=== PATIENT | female | born 1990 | race Caucasian/White ===

== ENCOUNTER → 2019-11-10 08:02 | Outpatient (BNVA) | payer BC, SELFPAY | PROVIDERS: Family Provider Family Medicine; PCP Family Medicine; Referring Provider Obstetrics & Gynecology; Visit Provider Obstetrics & Gynecology | DX: Z04.89 Encounter for examination and observation for other specified reasons (principal) | CPT/HCPCS: 84315 ==

== ENCOUNTER → 2019-11-22 08:20 | Outpatient (BNVA) | payer BC, SELFPAY | PROVIDERS: Family Provider Family Medicine; PCP Family Medicine; Visit Provider Nurse Practitioner Women's Health | DX: Z34.90 Encounter for supervision of normal pregnancy, unspecified, unspecified trimester (principal) | CPT/HCPCS: 84315 ==

== ENCOUNTER 2019-11-23 11:30 | Outpatient (CLI) | payer BC, SELFPAY ==
[2019-11-23] VITALS (14 sets, daily range): BP systolic 0–113; BP diastolic 0–62; PULSE 75–98; RESP 16; TEMP 36.8; BMI 26.4
[2019-11-23] MEDS: sodium chloride 0.9% 1,000 ML 999 ML IV (12:37)
[2019-11-23 13:15] LABS: Basophils % 0.2 %; Eosinophils # 0.1 10^3/uL (0.0-0.8); Eosinophils % 0.7 %; Hematocrit 33.2 % (37.0-47.0); Hemoglobin 10.7 g/dL (11.5-15.3); Lymphocytes # 2.7 10^3/uL (0.8-4.8); Lymphocytes % 25.9 %; Mean Corpuscular HGB Conc 32.2 g/dL (30.0-36.0); Mean Platelet Volume 12.4 fL (7.4-10.4); Monocytes # 0.7 10^3/uL (0.2-0.9); Monocytes % 6.7 %; Neutrophils # 6.8 10^3/uL (1.8-7.7); Neutrophils % 65.6 %; Nucleated Red Blood Cells % 0 %; Platelet Count 241 10^3/cmm (130-400); Red Blood Count 3.57 10^6/uL (4.1-5.3); Red Cell Distribution Width 12.8 % (12.1-15.1); White Blood Count 10.3 10^3/uL (4.0-10.0)
[2019-11-23 13:36] LABS: Alanine Aminotransferase 8 U/L (0-33); Albumin Level 3.3 g/dL (3.5-5.2); Alkaline Phosphatase 103 IU/L (35-105); Anion Gap 16.5 (5-19); Aspartate Amino Transferase 15 U/L (0-32); Blood Urea Nitrogen 4 mg/dL (6-20); Carbon Dioxide 21 mmol/L (22-29); Chloride 101 mmol/L (98-107); Globulin 2.9 g/dL (1.3-4.6); Glomerular Filtration Rate 186.2 mL/min (90-130); Glucose 73 mg/dL (74-109); Potassium 3.5 mmol/L (3.5-5.1); Sodium 135 mmol/L (136-145); Total Bilirubin 0.5 mg/dL (0.15-1.2); Total Protein 6.2 g/dL (6.6-8.7)
[2019-11-23] MEDS: terbutaline 1 mg/mL INJ 0.25 MG SUBCUT ×2 (14:41→15:18)
[2019-11-23] MEDS: sodium chloride 0.9% 1,000 ML 125 ML IV (14:55)
== END 2019-11-23 17:05 | disposition home or self-care (01) ==
LOC: OPOB 11:55 → OBGYN 16:58 → OPOB 17:25
PROVIDERS: Family Provider Family Medicine; PCP Family Medicine; Visit Provider Obstetrics & Gynecology
DX: O26.899 Other specified pregnancy related conditions, unspecified trimester (principal); Z3A.00 Weeks of gestation of pregnancy not specified; R52 Pain, unspecified
CPT/HCPCS: 36415; 80053; 81003; 84315; 85025; 87086; 96360; 96361; 96372; 99211; J3105; J7030

== ENCOUNTER → 2019-12-08 07:57 | Outpatient (BNVA) | payer BC, SELFPAY | PROVIDERS: Family Provider Family Medicine; PCP Family Medicine; Visit Provider Obstetrics & Gynecology | DX: Z01.89 Encounter for other specified special examinations (principal) | CPT/HCPCS: 84315 ==

== ENCOUNTER → 2019-12-19 08:01 | Outpatient (BNVA) | payer BC, SELFPAY | PROVIDERS: Family Provider Family Medicine; PCP Family Medicine; Visit Provider Obstetrics & Gynecology | DX: O09.93 Supervision of high risk pregnancy, unspecified, third trimester (principal); Z3A.00 Weeks of gestation of pregnancy not specified | CPT/HCPCS: 84315; 85025; 87081 ==

== ENCOUNTER → 2019-12-27 07:47 | Outpatient (BNVA) | payer BC, SELFPAY | PROVIDERS: Family Provider Family Medicine; PCP Family Medicine; Visit Provider Obstetrics & Gynecology | DX: Z01.89 Encounter for other specified special examinations (principal) | CPT/HCPCS: 84315 ==

== ENCOUNTER → 2020-01-02 14:56 | Outpatient (BNVA) | payer BC, SELFPAY | PROVIDERS: Family Provider Family Medicine; PCP Family Medicine; Visit Provider Obstetrics & Gynecology | DX: Z01.89 Encounter for other specified special examinations (principal) | CPT/HCPCS: 84315 ==

== ENCOUNTER → 2020-01-09 08:13 | Outpatient (BNVA) | payer BC, SELFPAY | PROVIDERS: Family Provider Family Medicine; PCP Family Medicine; Visit Provider Obstetrics & Gynecology | DX: Z01.89 Encounter for other specified special examinations (principal) | CPT/HCPCS: 84315 ==

== ENCOUNTER 2020-01-10 06:55 | Inpatient (IN) | payer BC, SELFPAY ==
[2020-01-10] VITALS (33 sets, daily range): BP systolic 0–138; BP diastolic 0–77; PULSE 63–94; RESP 16–18; TEMP 36.7–36.9; O2SAT 98–99; BMI 27.4
[2020-01-10] MEDS: dextrose 5%-lactated ringers 1,000 ML 125 ML IV ×2 (08:09→15:32)
[2020-01-10] MEDS: ampicillin 2,000 MG in sodium chloride 0.9% (plus) 50 ML 100 MG IV (08:10)
[2020-01-10] MEDS: hyDROXYzine 25 mg Capsule 50 MG PO (08:15)
[2020-01-10] MEDS: oxytocin 30 UNIT/500 ML BAG IV (08:17)
[2020-01-10 08:31] LABS: Basophils % 0.2 %; Eosinophils # 0.1 10^3/uL (0.0-0.8); Eosinophils % 0.8 %; Hematocrit 33.4 % (37.0-47.0); Hemoglobin 10.6 g/dL (11.5-15.3); Lymphocytes % 31.2 %; Mean Corpuscular HGB Conc 31.7 g/dL (30.0-36.0); Mean Corpuscular Hemoglobin 28.8 pg (28.0-34.0); Mean Corpuscular Volume 90.8 fL (81-99); Mean Platelet Volume 12.8 fL (7.4-10.4); Monocytes # 0.9 10^3/uL (0.2-0.9); Monocytes % 9.3 %; Neutrophils # 5.4 10^3/uL (1.8-7.7); Neutrophils % 57.4 %; Nucleated Red Blood Cells % 0 %; Platelet Count 275 10^3/cmm (130-400); Red Blood Count 3.68 10^6/uL (4.1-5.3); Red Cell Distribution Width 13.7 % (12.1-15.1); White Blood Count 9.5 10^3/uL (4.0-10.0)
[2020-01-10] MEDS: ampicillin 1,000 MG in sodium chloride 0.9% (plus) 50 ML 100 MG IV (12:12)
[2020-01-10] MEDS: fentaNYL 50 mcg/mL INJ 2mL 25 MCG IVP (14:30)
[2020-01-10] MEDS: ondansetron 2 mg/ML SDV 2 mL 4 MG IVP (14:47)
[2020-01-10] MEDS: miSOPROStol 200 mcg Tablet 600 MCG PR (15:30)
[2020-01-10] MEDS: lidocaine 2% INJ 20 mL INJECTION (16:14)
--- NOTE | 2020-01-10 16:57 | PM.DELIVERY ---
 Delivery Note: Date of delivery: January 10, 2020 Pre-delivery diagnoses: 29-year-old 7 para 2-0-4-2 at 39 weeks and 2 days GBS positive History of herpes on valacyclovir suppression Depression controlled with medication Acid reflux controlled with medication Elective induction of labor Post-delivery diagnoses: Vaginal delivery on 01/10/2020 Delivering Physician: Jagdish Solomon Pre-Delivery Course: Ms. Olivo is a 29-year-old 7 para 2-0-4-2 who presented to labor and delivery on 01/10/2020 at 39 weeks and 2 days gestation for scheduled induction of labor. She denied any new problems other than having a lot of irregular contractions since having her membranes stripped. She was noted to be 2 cm, 70% and -1 station and had irregular contractions noted on the monitor. tracing was category 1. Induction was started at 8 AM with Pitocin which was titrated to a maximum of 20 mIU. With this she started to have regular contractions every 2 to 3 minutes. tracing remained category 1. Artificial rupture of membranes was performed at 1:20 PM with clear fluid. She was 3 cm 80% and -1 station at this time. After that she grew uncomfortable and received fentanyl for pain and made rapid cervical change and was fully dilated at 2:59 PM. She was set up in lithotomy position and ready to push. Delivery: She was set up in lithotomy position and was pushing effectively. She was noted to be +3 station and continued pushing well. The head delivered in CARLYN position, no nuchal cord was present. The shoulders and rest of the body followed with her next push. The baby's mouth and nose were suctioned and the baby was placed on the mother's belly. Once cord pulsations stopped the cord was clamped and cut. Placenta delivered spontaneously intact with membranes and was discarded. The fundus was noted to be firm and well contracted. The lower segment was boggy and uterine massage and 600 mcg of Cytotec improved the stone and bleeding was controlled. The vagina and cervix were inspected and no cervical or sulcal lacerations were noted. The perineum was intact except for first-degree vaginal lacerations which were repaired with a [id number]-sa-crins suture using 3-0 Vicryl on an SH needle. Baby boyRavi born at 3:15 PM with 8/8, weighing 8 pounds 0 ounces, 20-1/4 inches long. Placenta was delivered 3:19 PM on 01/10/2020. Cotyledons were intact , centrally inserted umbilical cord with 3 vessels noted. Estimated blood loss 300 mL. 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
--- NOTE | 2020-01-10 18:33 | PC.NURSE ---
1805 pt ambulated to pushing crib, pt tolerated ambulation well.
[2020-01-10] MEDS: benzocaine-menthol 78 gm Canister 1 SPRAY TOPICAL (20:21)
[2020-01-10] MEDS: HYDROcodone-acetaminophen 5-325 mg Tablet PO (20:55)
[2020-01-11] MEDS: HYDROcodone-acetaminophen 5-325 mg Tablet PO ×4 (01:03→16:00)
[2020-01-11 01:15] VITALS: BP 99/55; PULSE 89; RESP 16
[2020-01-11 04:25] LABS: Hematocrit 29.4 % (37.0-47.0); Hemoglobin 9.3 g/dL (11.5-15.3); Mean Corpuscular HGB Conc 31.6 g/dL (30.0-36.0); Mean Corpuscular Hemoglobin 28.9 pg (28.0-34.0); Mean Corpuscular Volume 91.3 fL (81-99); Mean Platelet Volume 12.2 fL (7.4-10.4); Platelet Count 266 10^3/cmm (130-400); Red Blood Count 3.22 10^6/uL (4.1-5.3); Red Cell Distribution Width 13.5 % (12.1-15.1); White Blood Count 15.2 10^3/uL (4.0-10.0)
[2020-01-11] MEDS: prenatal vitamin Capsule 1 CAP PO (09:06)
[2020-01-11] MEDS: docusate sodium 100 mg Capsule PO (09:07)
[2020-01-11 09:15] VITALS: BP 113/67; PULSE 80; RESP 17
[2020-01-11 12:21] VITALS: BP 126/76; PULSE 72; RESP 17; TEMP 36.7
--- NOTE | 2020-01-11 12:50 | P.DS_ITS ---
Discharge Providers Date of Admission: 01/10/20 06:55 Date of Discharge: January 11, 2020 Attending Provider at Admission: Jagdish Clay MD Attending Provider at Discharge: Jagdish Clay MD Primary Care Provider: Xiang Lou MD Diagnoses at Discharge Discharge Diagnosis (1) History of LEEP (loop electrosurgical excision procedure) of cervix complicating in third trimester: Status: Acute (2) Palpitations: Status: Acute Problem details: - (3) Vertebral artery dissection: Status: Acute (4) History of herpes genitalis: Status: Acute (5) Anemia complicating , third trimester: Status: Acute (6) Supervision of high risk in third trimester: Status: Acute Reason for Visit Reason for Visit: Reason For Visit: induction Hospital Course Hospital Course: Ms. Olivo is a 29-year-old 7 para 2-0-4-2 who presented to labor and delivery on 01/10/2020 at 39 weeks and 2 days gestation for scheduled induction of labor. She denied any new problems other than having a lot of irregular contractions since having her membranes stripped. She was noted to be 2 cm, 70% and -1 station and had irregular contractions noted on the monitor. tracing was category 1. Induction was started at 8 AM with Pitocin which was titrated to a maximum of 20 mIU. With this she started to have regular contractions every 2 to 3 minutes. tracing remained category 1. Artificial rupture of membranes was performed at 1:20 PM with clear fluid. She was 3 cm 80% and -1 station at this time. After that she grew uncomfortable and received fentanyl for pain and made rapid cervical change and was fully dilated at 2:59 PM. She was set up in lithotomy position and ready to push. She underwent an uncomplicated delivery on 01/10/2020. On day #1 she continued to do well. Vital signs are stable and hemoglobin was stable at 9.3. She tolerated regular diet and was bonding well with her baby and denied any depressive symptoms. She desired to have him circumcised and counseling and review of risks and benefits circumcision was performed on her son on 01/11/2020. Fundus was firm with minimal bleeding and she had no other questions or concerns. She desired early discharge and was discharged home on day 1-01/11/2020 in a stable condition. Emergency room precautions were reviewed in detail with patient and she understands she needs to come in for any questions or concerns. Plan is to follow-up in 6 weeks for visit. Physical Exam Narrative: EXAM NARRATIVE: Gen.: No acute distress Heart: S1-S2 heard, regular rate and rhythm Lungs: Clear to auscultation bilaterally Abdomen: Soft, fundus firm below umbilicus, Legs: No calf tenderness, trace pedal edema. Discharge Data Data Completed and Pending: Labs from last 24 hours 01/11/20 04:20 WBC 15.2 H RBC 3.22 L Hgb 9.3 L Hct 29.4 L MCV 91.3 MCH 28.9 MCHC 31.6 RDW 13.5 Plt Count 266 MPV 12.2 H Vitals: Last Vital Signs Temp 98.0 F 01/11/20 12:21 Pulse 72 01/11/20 12:21 Resp 17 01/11/20 12:21 BP 126/76 01/11/20 12:21 Pulse Ox 99 01/10/20 20:30 Discharge Plan Discharge Patient Disposition: Home, Self-Care Condition: Stable Prescriptions: New ibuprofen 800 mg tablet 800 mg PO Q8H Qty: 30 RF: 0 hydrocodone-acetaminophen 5-325 mg tablet 1 tab PO Q6H Qty: 10 RF: 0 docusate sodium 100 mg Capsule 100 mg PO BID PRN (Reason: constipation) Qty: 30 RF: 0 Continued calcium carbonate 500 mg calcium (1,250 mg) tablet,chewable 500 mg PO BID PRNRF: 0 famotidine [Pepcid] 20 mg tablet 20 mg PO DAILY RF: 0 PNV no.[id number] acid 28 mg iron- 800 mcg tablet PO DAILY RF: 0 aspirin 81 mg tablet,delayed release (DR/EC) 81 mg PO DAILY RF: 0 acetaminophen [Tylenol] 325 mg capsule 325 mg PO QID PRNRF: 0 fluoxetine [Prozac] 10 mg capsule 10 mg PO DAILY Qty: 30 RF: 0 bupropion HCl [Wellbutrin XL] 300 mg tablet extended release 24 hr 300 mg PO DAILY 90 Days Qty: 30 RF: 2 Discontinued ferrous sulfate 325 mg (65 mg iron) tablet 325 mg PO BID RF: 0 valacyclovir [Valtrex] 500 mg tablet 500 mg PO BID Qty: 60 RF: 2 Discharge Orders: Discharge Order (Routine); Ordered 01/11/20 Ordered By: Jagdish Clay Referrals: Jagdish Clay MD [Physician] - (Follow-up in 6 weeks for visit) Activity Restrictions/Additional Instructions: Pelvic rest for 6 weeks No heavy lifting for 6 weeks Follow-up in 6 weeks for visit Discharge Attestations Time Spent in Discharge Care*: less than 30 min Specific Discharge Activities: Specific discharge activities: educating patient, educating and/or supporting family/caregiver, discussing with pcp/other providers, documenting/other paperwork and evaluating patient/reviewing data Status at Discharge: Overall status at discharge: other (Stable) Quality Metrics Clinical Quality Measures During this hospital stay, did patient experience: None 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
[2020-01-11 16:15] VITALS: BP 104/62; PULSE 85; RESP 18; TEMP 36.7; O2SAT 98
[2020-01-11 18:03] VITALS: BP 111/69; PULSE 91; RESP 18; TEMP 36.7
== END 2020-01-11 18:50 | disposition home or self-care (01) | DRG 807 ==
PROVIDERS: Admitting Provider Obstetrics & Gynecology; Family Provider Family Medicine; PCP Family Medicine; Visit Provider Obstetrics & Gynecology
DX: O34.43 Maternal care for other abnormalities of cervix, third trimester (principal); Z37.0 Single live birth; O70.0 First degree perineal laceration during delivery; O99.820 Streptococcus B carrier state complicating pregnancy; O99.013 Anemia complicating pregnancy, third trimester; D64.9 Anemia, unspecified; Z3A.39 39 weeks gestation of pregnancy; Z87.891 Personal history of nicotine dependence
CPT/HCPCS: 12345; 36415; 59409; 85025; 85027; 96374; 96375; J0290; J2001; J2405; J3010

== ENCOUNTER 2020-04-18 22:05 | Emergency (ER) | payer BC, SELFPAY ==
[2020-04-18 22:09] VITALS: BP 116/70; RESP 18; BMI 23.1
--- NOTE | 2020-04-18 22:09 | CTR_ITS ---
PROCEDURE INFORMATION: Exam: CT Head Without Contrast Exam date and time: 04/18/2020 10:57 PM Age: 29 years old Clinical indication: Pain; Headache not specified; Patient HX: HX verterbral artery dissection TECHNIQUE: Imaging protocol: Computed tomography of the head without contrast. Radiation optimization: All CT scans at this facility use at least one of these dose optimization techniques: automated exposure control; mA and/or kV adjustment per patient size (includes targeted exams where dose is matched to clinical indication); or iterative reconstruction. COMPARISON: No relevant prior studies available. RADIATION DOSE METRICS: Total DLP (mGy-cm): 846.53 FINDINGS: Brain: Normal. No hemorrhage. Unremarkable white matter. No mass effect. Ventricles: Normal. No ventriculomegaly. Bones/joints: Unremarkable. No acute fracture. Sinuses: Visualized sinuses are unremarkable. No fluid levels. Mastoid air cells: Visualized mastoid air cells are well aerated. Soft tissues: Several gas bubbles are present within the posterior occipital scalp muscles, most likely air introduced via IV catheter. CT/CT head wo con* [id number] IMPRESSION: 1. No acute intracranial abnormality. Radiation Dose CTDIVOL = (mGy): DLP = 846.53 (mGy-cm)
--- NOTE | 2020-04-18 22:09 | CTR_ITS ---
PROCEDURE INFORMATION: Exam: CT Angiography Head With Contrast Exam date and time: 04/18/2020 10:56 PM Age: 29 years old Clinical indication: Pain; Headache; Patient HX: HX verterbral artery dissection; Additional info: WILLAMS TECHNIQUE: Imaging protocol: Computed tomography angiography of the head with intravenous contrast. 3D rendering: MIP and/or 3D reconstructed images were created by the technologist. Radiation optimization: All CT scans at this facility use at least one of these dose optimization techniques: automated exposure control; mA and/or kV adjustment per patient size (includes targeted exams where dose is matched to clinical indication); or iterative reconstruction. Contrast material: OMNI 350; Contrast volume: 95 ml; Contrast route: INTRAVENOUS (IV); COMPARISON: CT head wo con* [id number] 04/18/2020 10:59 PM RADIATION DOSE METRICS: Total DLP (mGy-cm): 1431.36 FINDINGS: Anterior cerebral arteries: No occlusion or significant stenosis. No aneurysm. Right internal carotid artery: Intracranial segment is patent with no significant stenosis or occlusion. No aneurysm. Right middle cerebral artery: No occlusion or significant stenosis. No aneurysm. Right posterior cerebral artery: No occlusion or significant stenosis. No aneurysm. Right vertebral artery: No occlusion or significant stenosis. No aneurysm. Left internal carotid artery: Intracranial segment is patent with no significant stenosis or occlusion. No aneurysm. Left middle cerebral artery: No occlusion or significant stenosis. No aneurysm. Left posterior cerebral artery: No occlusion or significant stenosis. No aneurysm. Left vertebral artery: No occlusion or significant stenosis. No aneurysm. Basilar artery: No occlusion or significant stenosis. No aneurysm. IMPRESSION: No large vessel stenosis or occlusion. PROCEDURE INFORMATION: Exam: CT Angiography Neck With Contrast Exam date and time: 04/18/2020 10:56 PM Age: 29 years old Clinical indication: Pain; Headache; Patient HX: HX verterbral artery dissection; Additional info: WILLAMS TECHNIQUE: Imaging protocol: Computed tomography angiography of the neck with intravenous contrast. 3D rendering: MIP and/or 3D reconstructed images were created by the technologist. Radiation optimization: All CT scans at this facility use at least one of these dose optimization techniques: automated exposure control; mA and/or kV adjustment per patient size (includes targeted exams where dose is matched to clinical indication); or iterative reconstruction. Contrast material: OMNI 350; Contrast volume: 95 ml; Contrast route: INTRAVENOUS (IV); COMPARISON: CT head wo con* [id number] 04/18/2020 10:59 PM RADIATION DOSE METRICS: Total DLP (mGy-cm): 1431.36 FINDINGS: Right common carotid artery: No stenosis. No dissection or occlusion. Right internal carotid artery: No stenosis of the extracranial segment. No dissection or occlusion. Right external carotid artery: No occlusion or stenosis of the origin. Right vertebral artery: No stenosis. No dissection or occlusion. Left common carotid artery: No stenosis. No dissection or occlusion. Left internal carotid artery: No stenosis of the extracranial segment. No dissection or occlusion. Left external carotid artery: No occlusion or stenosis of the origin. Left vertebral artery: No stenosis. No dissection or occlusion. Bones/joints: No acute fracture. Soft tissues: Normal. No significant soft tissue swelling. CT/CT angio headneck* [id number] IMPRESSION: No stenosis or occlusion. REFERENCES: NASCET CRITERIA. The degree of internal carotid artery stenosis is based on NASCET criteria. Normal is no stenosis. Mild is less than 50% stenosis. Moderate is 50-69% stenosis. Severe is 70% to 99% stenosis. Total occlusion is no detectable patent lumen. Radiation Dose CTDIVOL = (mGy): DLP = 1431.36~1431.36 (mGy-cm)
--- NOTE | 2020-04-18 22:14 | ED_ITS ---
Documented by User: Shae Sun MD 04/18/20 22:48 HPI - Headache General: Chief Complaint: Headache Stated Complaint: HEADACHE / NECKACHE Time Seen by Provider: 04/18/20 22:10 Source: patient Mode of arrival: ambulatory Limitations: no limitations History of Present Illness: HPI Narrative: Medina is a 29-year-old with a history of vertebral artery dissection years ago. Patient had been on Plavix until she recently had a child 3 months ago and it stopped. Patient states she has had headaches starting yesterday and much worse today with some neck pain. States the pain is a 9 out of 10. She denies any fever. She had no vomiting or diarrhea. Associated symptoms: Deny chest pain, fever(s), nausea, rash or vomiting Review of Systems Const: Denies: fever(s), chills, body aches or change in appetite Eyes: Denies: blurry vision or eye discomfort ENMT: Denies: throat pain or dental pain Card: Denies: chest pain Resp: Denies: dyspnea GI: Denies: abdominal pain, nausea, vomiting or diarrhea : Denies: dysuria Musc: Denies: neck pain or back pain Skin/Breast: Denies: rash Neuro: Reports: headache(s) Psych: Denies: depression Ovidio/Lymph: Denies: easy bruising All/Imm: Denies: urticaria PFSH ED PFSH: Medical History Anxiety with depression Has had depression since at least 2016 well-controlled on Wellbutrin and Prozac prior to the . This is managed by her primary care provider Dr. Lou Carcinoma in situ of endocervix -LEEP performed on 07/08/2018 with positive endocervical margin for ERIC-3. 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. Surgical History History of dilation and curettage x 2 for SAB S/P LEEP LEEP procedure done on 07/08/2018 for ERIC-2-ERIC-3. Pathology showed anterior lip with mild okfmkoioi-HOZ-7 with negative margins. 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 -Post-LEEP endocervical curettage shows benign endocervical mucosa without malignancy [place] teeth extracted Family History Family/Other Epilepsy Epilepsy Hypertension Denies family history of Cervical cancer Colon cancer Ovarian cancer Breast cancer Uterine cancer Social History Smoking and tobacco status: never smoked Alcohol intake: former Former alcohol use details: used to drink socially Additional social history: - Tobacco use: Former smoker-used to smoke socially-none since 2016 Alcohol use: Social alcohol use-none since 2016 Drug use: Denies past or current use. 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[place] Physical Exam Const: COMMON NORMALS: no acute distress, patient oriented x3 and healthy appearing HENMT: COMMON NORMALS: normocephalic and atraumatic HEAD & SCALP: normocephalic and atraumatic Eye: COMMON NORMALS: Equal, round and reactive pupils present and EOMs intact bilaterally PUPIL: Yes Equal, round and reactive pupils present Neck/C-Spine: COMMON NORMALS: full ROM and supple Chest: COMMONS NORMALS: normal inspection of the chest and normal palpation of entire chest wall Resp: COMMON NORMALS: normal respiratory effort, No retractions, No use of accessory muscles and clear to auscultation bilaterally AUSCULTATION: clear to auscultation bilaterally Cardio: COMMON NORMALS: regular rate, regular rhythm and No murmurs present (Cardio) RATE: regular rate RHYTHM: regular rhythm GI: COMMON NORMALS: Normal to inspection, nondistended, normoactive bowel sounds present, Soft to palpation, non-tender and no masses PALPATION: Yes Soft to palpation Extremity: COMMON NORMALS: normal to inspection and full ROM Neuro: COMMON NORMALS: patient oriented x3, moves all extremities and no focal motor deficits Psych: COMMON NORMALS: mental status grossly normal, Normal thought process present and cooperative THOUGHT PROCESS: Normal thought process present Skin: COMMON NORMALS: no rashes or lesions noted and no wounds GENERAL SKIN EXAM: no rashes or lesions noted Course Vital Signs: Vital signs: Vital Signs Pulse Rate 65 04/19/20 00:30 Respiratory Rate 18 04/19/20 00:30 Blood Pressure 136/73 04/19/20 00:30 Pulse Oximetry 98 04/19/20 00:30 MDM - Headache MDM Narrative: Medical decision making narrative: Medina presents here with a headache along with some neck pain. She does have a history of vertebral artery dissection and will rule out with a CT along with CT angios of head and neck. Patient's care turned over to Dr. Barry to follow these at this time. Lab Data: Labs: Lab Results 04/18/20 04/18/20 04/18/20 Range/Units 22:25 22:37 22:37 WBC 6.5 (4.0-10.0) 10^3/ uL RBC 4.24 (4.1-5.3) 10^6/u L Hgb 12.6 (11.5-15.3) g/dL Hct 38.6 (37.0-47.0) % MCV 91.0 (81-99) fL MCH 29.7 (28.0-34.0) pg MCHC 32.6 (30.0-36.0) g/dL RDW 13.8 (12.1-15.1) % Plt Count 329 (130-400) 10^3/c mm MPV 11.5 H (7.4-10.4) fL Neut % (Auto) 43.8 % Lymph % (Auto) 43.8 % [place] % (Auto) 8.9 % Eos % (Auto) 2.8 % Baso % (Auto) 0.5 % Neut # (Auto) 2.9 (1.8-7.7) 10^3/u L Lymph # (Auto) 2.8 (0.8-4.8) 10^3/u L [place] # (Auto) 0.6 (0.2-0.9) 10^3/u L Eos # (Auto) 0.2 (0.0-0.8) 10^3/u L Baso # (Auto) 0.0 (0.0-0.1) 10^3/u L Nucleated RBC % (a uto) 0 % Nucleated RBCs # 0.0 /100WBC PT 12.80 (10.5-13.3) SECO NDS INR 0.94 (0.8-1.2) Sodium (136-145) mmol/L Potassium (3.5-5.1) mmol/L Chloride (98-107) mmol/L Carbon Dioxide (22-29) mmol/L Anion Gap (5-19) BUN (6-20) mg/dL Creatinine (0.5-0.9) mg/dL GFR Calculation (90-130) mL/min Glucose (65-115) mg/dL Calculated Osmolal ity (285-295) mOsm/k g Calcium (8.5-10.5) mg/dL Total Bilirubin (0.15-1.2) mg/dL AST (0-32) U/L ALT (0-33) U/L Alkaline Phosphata se (35-105) IU/L Total Protein (6.6-8.7) g/dL Albumin (3.5-5.2) g/dL Globulin (1.3-4.6) g/dL HCG, Qual Negative (Negative) 04/18/20 Range/Units 22:37 WBC (4.0-10.0) 10^3/ uL RBC (4.1-5.3) 10^6/u L Hgb (11.5-15.3) g/dL Hct (37.0-47.0) % MCV (81-99) fL MCH (28.0-34.0) pg MCHC (30.0-36.0) g/dL RDW (12.1-15.1) % Plt Count (130-400) 10^3/c mm MPV (7.4-10.4) fL Neut % (Auto) % Lymph % (Auto) % [place] % (Auto) % Eos % (Auto) % Baso % (Auto) % Neut # (Auto) (1.8-7.7) 10^3/u L Lymph # (Auto) (0.8-4.8) 10^3/u L [place] # (Auto) (0.2-0.9) 10^3/u L Eos # (Auto) (0.0-0.8) 10^3/u L Baso # (Auto) (0.0-0.1) 10^3/u L Nucleated RBC % (a uto) % Nucleated RBCs # /100WBC PT (10.5-13.3) SECO NDS INR (0.8-1.2) Sodium 138 (136-145) mmol/L Potassium 4.2 (3.5-5.1) mmol/L Chloride 102 (98-107) mmol/L Carbon Dioxide 26 (22-29) mmol/L Anion Gap 14.2 (5-19) BUN 19 (6-20) mg/dL Creatinine 0.7 (0.5-0.9) mg/dL GFR Calculation 97.6 (90-130) mL/min Glucose 103 (65-115) mg/dL Calculated Osmolal ity 283 L (285-295) mOsm/k g Calcium 9.5 (8.5-10.5) mg/dL Total Bilirubin 0.3 (0.15-1.2) mg/dL AST 18 (0-32) U/L ALT 18 (0-33) U/L Alkaline Phosphata se 78 (35-105) IU/L Total Protein 6.8 (6.6-8.7) g/dL Albumin 4.4 (3.5-5.2) g/dL Globulin 2.4 (1.3-4.6) g/dL HCG, Qual (Negative) Discharge Plan Discharge Patient Disposition: Home, Self-Care Clinical Impression: Headache Qualifiers: Headache type: unspecified Headache chronicity pattern: acute headache Intractability: not intractable Qualified Code(s): R51 - Headache Condition: Stable Prescriptions: No Action PNV no.[id number] acid 28 mg iron- 800 mcg tablet PO DAILY RF: 0 aspirin 81 mg tablet,delayed release (DR/EC) 81 mg PO DAILY RF: 0 bupropion HCl [Wellbutrin XL] 300 mg tablet extended release 24 hr 300 mg PO DAILY 90 Days Qty: 30 RF: 2 fluoxetine [Prozac] 20 mg capsule 20 mg PO DAILY Qty: 30 RF: 1 Discharge Orders: Discharge Order (Routine); Ordered 04/18/20 Ordered By: Josie Alba Referrals: Xiang Lou MD [Primary Care Provider] - 1-3 days Discharge Diet: Advance as tolerated Discharge Activity: Increase activity as tolerated Patient Instructions: Acute Headache (ED) Activity Restrictions/Additional Instructions: Please return to the ER immediately for any of the signs or symptoms listed on your discharge instruction sheets, worsening/changing of your symptoms, you are not getting better as quickly as expected, or for ANY other cause or concerns. Discharge Date/Time: 04/19/20 00:31 Sign Out Sign Out Data: Patient Sign Out occurred on 04/18/20 at 23:28. Patient's care was discussed, and care was transferred from to Josie Alba. Coding Level of Care Code ED Transmission Operator for Chg Fwd Exam Comprehensive Documented by User: Josie Alba 04/19/20 00:50 HPI - Headache General: Chief Complaint: Headache Stated Complaint: HEADACHE / NECKACHE Time Seen by Provider: 04/18/20 22:10 PFSH ED PFSH: Medical History Anxiety with depression Has had depression since at least 2016 well-controlled on Wellbutrin and Prozac prior to the . This is managed by her primary care provider Dr. Lou Carcinoma in situ of endocervix -LEEP performed on 07/08/2018 with positive endocervical margin for ERIC-3. 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. Surgical History History of dilation and curettage x 2 for SAB S/P LEEP LEEP procedure done on 07/08/2018 for ERIC-2-ERIC-3. Pathology showed anterior lip with mild qwloabtkw-ZQU-7 with negative margins. Posterior cervical lips with severe avwdajzcv-GZM-6 with severe dysplasia at the endocervical margin and mild dysplasia at the exocervical margin. -Post-LEEP endocervical curettage shows benign endocervical mucosa without malignancy [place] teeth extracted Family History Family/Other Epilepsy Epilepsy Hypertension Denies family history of Cervical cancer Colon cancer Ovarian cancer Breast cancer Uterine cancer Social History Smoking and tobacco status: never smoked Alcohol intake: former Former alcohol use details: used to drink socially Additional social history: - Tobacco use: Former smoker-used to smoke socially-none since 2016 Alcohol use: Social alcohol use-none since 2016 Drug use: Denies past or current use. 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 I reviewed with her the findings of her CT head and CT Angio of the head and neck. She declines any further evaluation and care but does agree to the Tylenol and Toradol. She will return if her symptoms change or worsen but at this time she was ready to be discharged. For me the patient demonstrated a normal neurologic exam as well as a normal physical exam. I see no sign of a recurrent vertebral dissection at this time. Lab Data: Attestation: I reviewed the patient's lab results. Labs: Lab Results 04/18/20 04/18/20 04/18/20 Range/Units 22:25 22:37 22:37 WBC 6.5 (4.0-10.0) 10^3/ uL RBC 4.24 (4.1-5.3) 10^6/u L Hgb 12.6 (11.5-15.3) g/dL Hct 38.6 (37.0-47.0) % MCV 91.0 (81-99) fL MCH 29.7 (28.0-34.0) pg MCHC 32.6 (30.0-36.0) g/dL RDW 13.8 (12.1-15.1) % Plt Count 329 (130-400) 10^3/c mm MPV 11.5 H (7.4-10.4) fL Neut % (Auto) 43.8 % Lymph % (Auto) 43.8 % [place] % (Auto) 8.9 % Eos % (Auto) 2.8 % Baso % (Auto) 0.5 % Neut # (Auto) 2.9 (1.8-7.7) 10^3/u L Lymph # (Auto) 2.8 (0.8-4.8) 10^3/u L [place] # (Auto) 0.6 (0.2-0.9) 10^3/u L Eos # (Auto) 0.2 (0.0-0.8) 10^3/u L Baso # (Auto) 0.0 (0.0-0.1) 10^3/u L Nucleated RBC % (a uto) 0 % Nucleated RBCs # 0.0 /100WBC PT 12.80 (10.5-13.3) SECO NDS INR 0.94 (0.8-1.2) Sodium (136-145) mmol/L Potassium (3.5-5.1) mmol/L Chloride (98-107) mmol/L Carbon Dioxide (22-29) mmol/L Anion Gap (5-19) BUN (6-20) mg/dL Creatinine (0.5-0.9) mg/dL GFR Calculation (90-130) mL/min Glucose (65-115) mg/dL Calculated Osmolal ity (285-295) mOsm/k g Calcium (8.5-10.5) mg/dL Total Bilirubin (0.15-1.2) mg/dL AST (0-32) U/L ALT (0-33) U/L Alkaline Phosphata se (35-105) IU/L Total Protein (6.6-8.7) g/dL Albumin (3.5-5.2) g/dL Globulin (1.3-4.6) g/dL HCG, Qual Negative (Negative) 04/18/20 Range/Units 22:37 WBC (4.0-10.0) 10^3/ uL RBC (4.1-5.3) 10^6/u L Hgb (11.5-15.3) g/dL Hct (37.0-47.0) % MCV (81-99) fL MCH (28.0-34.0) pg MCHC (30.0-36.0) g/dL RDW (12.1-15.1) % Plt Count (130-400) 10^3/c mm MPV (7.4-10.4) fL Neut % (Auto) % Lymph % (Auto) % [place] % (Auto) % Eos % (Auto) % Baso % (Auto) % Neut # (Auto) (1.8-7.7) 10^3/u L Lymph # (Auto) (0.8-4.8) 10^3/u L [place] # (Auto) (0.2-0.9) 10^3/u L Eos # (Auto) (0.0-0.8) 10^3/u L Baso # (Auto) (0.0-0.1) 10^3/u L Nucleated RBC % (a uto) % Nucleated RBCs # /100WBC PT (10.5-13.3) SECO NDS INR (0.8-1.2) Sodium 138 (136-145) mmol/L Potassium 4.2 (3.5-5.1) mmol/L Chloride 102 (98-107) mmol/L Carbon Dioxide 26 (22-29) mmol/L Anion Gap 14.2 (5-19) BUN 19 (6-20) mg/dL Creatinine 0.7 (0.5-0.9) mg/dL GFR Calculation 97.6 (90-130) mL/min Glucose 103 (65-115) mg/dL Calculated Osmolal ity 283 L (285-295) mOsm/k g Calcium 9.5 (8.5-10.5) mg/dL Total Bilirubin 0.3 (0.15-1.2) mg/dL AST 18 (0-32) U/L ALT 18 (0-33) U/L Alkaline Phosphata se 78 (35-105) IU/L Total Protein 6.8 (6.6-8.7) g/dL Albumin 4.4 (3.5-5.2) g/dL Globulin 2.4 (1.3-4.6) g/dL HCG, Qual (Negative) Imaging Data^: CT Head: Radiologist's impression: [address] [address] [address] Scan Report Signed Patient: Medina Olivo Unit #: [id number] : 1990 Age/Sex: 29 / F ADM Date: 04/18/20 Loc: ER Room/Bed: Attending Dr: Ordering Provider/Ordering MD: Shae Sun MD Date of Service: 04/18/20 Procedure(s): CT head wo con* [id number] Accession Number(s): [id number] Report Number: [id number] PROCEDURE INFORMATION: Exam: CT Head Without Contrast Exam date and time: 04/18/2020 10:57 PM Age: 29 years old Clinical indication: Pain; Headache not specified; Patient HX: HX verterbral artery dissection TECHNIQUE: Imaging protocol: Computed tomography of the head without contrast. Radiation optimization: All CT scans at this facility use at least one of these dose optimization techniques: automated exposure control; mA and/or kV adjustment per patient size (includes targeted exams where dose is matched to clinical indication); or iterative reconstruction. COMPARISON: No relevant prior studies available. RADIATION DOSE METRICS: Total DLP (mGy-cm): 846.53 FINDINGS: Brain: Normal. No hemorrhage. Unremarkable white matter. No mass effect. Ventricles: Normal. No ventriculomegaly. Bones/joints: Unremarkable. No acute fracture. Sinuses: Visualized sinuses are unremarkable. No fluid levels. Mastoid air cells: Visualized mastoid air cells are well aerated. Soft tissues: Several gas bubbles are present within the posterior occipital scalp muscles, most likely air introduced via IV catheter. CT/CT head wo con* [id number] IMPRESSION: 1. No acute intracranial abnormality. Radiation Dose CTDIVOL = (mGy): DLP = 846.53 (mGy-cm) Dictated By: Tolu Solomon Signed By: Tolu Solomon Signed Date/Time: 04/18/202337 DD/ 36 CTA Head and Neck: Radiologist's impression: [address] [address] [address] Scan Report Signed Patient: Medina Olivo Unit #: [id number] : 1990 Age/Sex: 29 / F ADM Date: 04/18/20 Loc: ER Room/Bed: Attending Dr: Ordering Provider/Ordering MD: Shae Sun MD Date of Service: 04/18/20 Procedure(s): CT angio headneck* [id number] Accession Number(s): [id number] Report Number: [id number] PROCEDURE INFORMATION: Exam: CT Angiography Head With Contrast Exam date and time: 04/18/2020 10:56 PM Age: 29 years old Clinical indication: Pain; Headache; Patient HX: HX verterbral artery dissection; Additional info: WILLAMS TECHNIQUE: Imaging protocol: Computed tomography angiography of the head with intravenous contrast. 3D rendering: MIP and/or 3D reconstructed images were created by the technologist. Radiation optimization: All CT scans at this facility use at least one of these dose optimization techniques: automated exposure control; mA and/or kV adjustment per patient size (includes targeted exams where dose is matched to clinical indication); or iterative reconstruction. Contrast material: OMNI 350; Contrast volume: 95 ml; Contrast route: INTRAVENOUS (IV); COMPARISON: CT head wo jaja* [id number] 04/18/2020 10:59 PM RADIATION DOSE METRICS: Total DLP (mGy-cm): 1431.36 FINDINGS: Anterior cerebral arteries: No occlusion or significant stenosis. No aneurysm. Right internal carotid artery: Intracranial segment is patent with no significant stenosis or occlusion. No aneurysm. Right middle cerebral artery: No occlusion or significant stenosis. No aneurysm. Right posterior cerebral artery: No occlusion or significant stenosis. No aneurysm. Right vertebral artery: No occlusion or significant stenosis. No aneurysm. Left internal carotid artery: Intracranial segment is patent with no significant stenosis or occlusion. No aneurysm. Left middle cerebral artery: No occlusion or significant stenosis. No aneurysm. Left posterior cerebral artery: No occlusion or significant stenosis. No aneurysm. Left vertebral artery: No occlusion or significant stenosis. No aneurysm. Basilar artery: No occlusion or significant stenosis. No aneurysm. IMPRESSION: No large vessel stenosis or occlusion. PROCEDURE INFORMATION: Exam: CT Angiography Neck With Contrast Exam date and time: 04/18/2020 10:56 PM Age: 29 years old Clinical indication: Pain; Headache; Patient HX: HX verterbral artery dissection; Additional info: WILLAMS TECHNIQUE: Imaging protocol: Computed tomography angiography of the neck with intravenous contrast. 3D rendering: MIP and/or 3D reconstructed images were created by the technologist. Radiation optimization: All CT scans at this facility use at least one of these dose optimization techniques: automated exposure control; mA and/or kV adjustment per patient size (includes targeted exams where dose is matched to clinical indication); or iterative reconstruction. Contrast material: OMNI 350; Contrast volume: 95 ml; Contrast route: INTRAVENOUS (IV); COMPARISON: CT head wo con* [id number] 04/18/2020 10:59 PM RADIATION DOSE METRICS: Total DLP (mGy-cm): 1431.36 FINDINGS: Right common carotid artery: No stenosis. No dissection or occlusion. Right internal carotid artery: No stenosis of the extracranial segment. No dissection or occlusion. Right external carotid artery: No occlusion or stenosis of the origin. Right vertebral artery: No stenosis. No dissection or occlusion. Left common carotid artery: No stenosis. No dissection or occlusion. Left internal carotid artery: No stenosis of the extracranial segment. No dissection or occlusion. Left external carotid artery: No occlusion or stenosis of the origin. Left vertebral artery: No stenosis. No dissection or occlusion. Bones/joints: No acute fracture. Soft tissues: Normal. No significant soft tissue swelling. CT/CT angio headneck* [id number] IMPRESSION: No stenosis or occlusion. REFERENCES: NASCET CRITERIA. The degree of internal carotid artery stenosis is based on NASCET criteria. Normal is no stenosis. Mild is less than 50% stenosis. Moderate is 50-69% stenosis. Severe is 70% to 99% stenosis. Total occlusion is no detectable patent lumen. Radiation Dose CTDIVOL = (mGy): DLP = 1431.36 1431.36 (mGy-cm) Dictated By: Tolu Solomon Signed By: Tolu Solomon Signed Date/Time: 04/18/202350 DD/ 49 Discharge Plan Discharge Patient Disposition: Home, Self-Care Clinical Impression: Headache Qualifiers: Headache type: unspecified Headache chronicity pattern: acute headache Intractability: not intractable Qualified Code(s): R51 - Headache Condition: Stable Prescriptions: No Action PNV no.491-vnnp-jxlpb acid 28 mg iron- 800 mcg tablet PO DAILY RF: 0 aspirin 81 mg tablet,delayed release (DR/EC) 81 mg PO DAILY RF: 0 bupropion HCl [Wellbutrin XL] 300 mg tablet extended release 24 hr 300 mg PO DAILY 90 Days Qty: 30 RF: 2 fluoxetine [Prozac] 20 mg capsule 20 mg PO DAILY Qty: 30 RF: 1 Discharge Orders: Discharge Order (Routine); Ordered 04/18/20 Ordered By: Josie Alba Referrals: Xiang Lou MD [Primary Care Provider] - 1-3 days Discharge Diet: Advance as tolerated Discharge Activity: Increase activity as tolerated Patient Instructions: Acute Headache (ED) Activity Restrictions/Additional Instructions: Please return to the ER immediately for any of the signs or symptoms listed on your discharge instruction sheets, worsening/changing of your symptoms, you are not getting better as quickly as expected, or for ANY other cause or concerns. Discharge Date/Time: 04/19/20 00:31 Sign Out Sign Out Data: Patient Sign Out occurred on 04/18/20 at 23:28. Patient's care was discussed, and care was transferred from to Josie Alba. Coding Level of Care Code ED Transmission Operator for Ajg Fwd Exam Comprehensive
[2020-04-18] MEDS: metoclopramide 5 mg/mL SDV 2 mL 10 MG IVP (22:30)
[2020-04-18 22:35] LABS: HCG Qualitative Urine. Negative (Negative)
[2020-04-18] MEDS: diphenhydrAMINE 50 mg/mL SDV 1mL IVP (22:40)
[2020-04-18 22:42] LABS: Basophils % 0.5 %; Eosinophils # 0.2 10^3/uL (0.0-0.8); Eosinophils % 2.8 %; Hematocrit 38.6 % (37.0-47.0); Hemoglobin 12.6 g/dL (11.5-15.3); Lymphocytes # 2.8 10^3/uL (0.8-4.8); Lymphocytes % 43.8 %; Mean Corpuscular HGB Conc 32.6 g/dL (30.0-36.0); Mean Corpuscular Hemoglobin 29.7 pg (28.0-34.0); Mean Platelet Volume 11.5 fL (7.4-10.4); Monocytes # 0.6 10^3/uL (0.2-0.9); Monocytes % 8.9 %; Neutrophils # 2.9 10^3/uL (1.8-7.7); Neutrophils % 43.8 %; Nucleated Red Blood Cells % 0 %; Platelet Count 329 10^3/cmm (130-400); Red Blood Count 4.24 10^6/uL (4.1-5.3); Red Cell Distribution Width 13.8 % (12.1-15.1); White Blood Count 6.5 10^3/uL (4.0-10.0)
[2020-04-18 22:51] LABS: INR 0.94 (0.8-1.2)
[2020-04-18 22:56] LABS: Alanine Aminotransferase 18 U/L (0-33); Albumin Level 4.4 g/dL (3.5-5.2); Alkaline Phosphatase 78 IU/L (35-105); Anion Gap 14.2 (5-19); Aspartate Amino Transferase 18 U/L (0-32); Blood Urea Nitrogen 19 mg/dL (6-20); Calcium 9.5 mg/dL (8.5-10.5); Carbon Dioxide 26 mmol/L (22-29); Chloride 102 mmol/L (98-107); Globulin 2.4 g/dL (1.3-4.6); Glomerular Filtration Rate 97.6 mL/min (90-130); Glucose 103 mg/dL (65-115); Osmolality Calculated 283 mOsm/kg (285-295); Potassium 4.2 mmol/L (3.5-5.1); Sodium 138 mmol/L (136-145); Total Bilirubin 0.3 mg/dL (0.15-1.2); Total Protein 6.8 g/dL (6.6-8.7)
[2020-04-18] MEDS: iohexol 350 mg/mL 100 mL Btl IV (23:19)
[2020-04-18 23:25] VITALS: BP 105/76; PULSE 56; RESP 14; O2SAT 98
[2020-04-19] MEDS: acetaminophen 500 mg Tablet 1000 MG PO (00:12)
[2020-04-19] MEDS: ketorolac 30 mg/mL INJ 10 MG IVP (00:15)
[2020-04-19 00:30] VITALS: BP 136/73; PULSE 65; RESP 18; O2SAT 98
== END 2020-04-19 00:31 | disposition home or self-care (01) ==
PROVIDERS: Emergency Medicine; Emergency Provider Emergency Medicine; PCP Family Medicine
DX: R51 Headache (principal); Z79.82 Long term (current) use of aspirin; Z85.41 Personal history of malignant neoplasm of cervix uteri
CPT/HCPCS: 12345; 36415; 70450; 70496; 70498; 80053; 81025; 85025; 85610; 96374; 96375; 99282; 99283; J1200; J1885; J2765; Q9967

== ENCOUNTER → 2020-06-13 14:58 | Outpatient (BNVA) | payer BC, SELFPAY | PROVIDERS: PCP Family Medicine; Visit Provider Psychiatry & Neurology Psychiatry | DX: F33.2 Major depressive disorder, recurrent severe without psychotic features (principal); F41.1 Generalized anxiety disorder; F60.5 Obsessive-compulsive personality disorder | CPT/HCPCS: 99204 ==

== ENCOUNTER → 2020-07-12 07:53 | Outpatient (BNVA) | payer BC, SELFPAY | PROVIDERS: PCP Family Medicine; Visit Provider Psychiatry & Neurology Psychiatry | DX: F60.5 Obsessive-compulsive personality disorder (principal); F41.1 Generalized anxiety disorder; F33.2 Major depressive disorder, recurrent severe without psychotic features | CPT/HCPCS: 99214 ==

== ENCOUNTER → 2020-07-27 07:35 | Outpatient (BNVA) | payer BC, SELFPAY | PROVIDERS: PCP Family Medicine; Visit Provider Psychiatry & Neurology Psychiatry | DX: F60.5 Obsessive-compulsive personality disorder (principal); F41.1 Generalized anxiety disorder; F33.2 Major depressive disorder, recurrent severe without psychotic features | CPT/HCPCS: 99214 ==

== ENCOUNTER → 2020-07-31 11:01 | Outpatient (BNVA) | payer BC, SELFPAY | PROVIDERS: PCP Family Medicine; Visit Provider Nurse Practitioner Family | DX: Z11.59 Encounter for screening for other viral diseases (principal); Z20.828 Contact with and (suspected) exposure to other viral communicable diseases | CPT/HCPCS: 87635 ==

== ENCOUNTER → 2020-08-15 08:32 | Outpatient (BNVA) | payer BC, SELFPAY | PROVIDERS: PCP Family Medicine; Visit Provider Obstetrics & Gynecology | DX: D06.9 Carcinoma in situ of cervix, unspecified (principal) | CPT/HCPCS: 88175 ==

== ENCOUNTER → 2020-09-14 09:10 | Outpatient (BNVA) | payer BC, SELFPAY | PROVIDERS: PCP Family Medicine; Visit Provider Psychiatry & Neurology Psychiatry | DX: F60.5 Obsessive-compulsive personality disorder (principal); F41.1 Generalized anxiety disorder; F33.2 Major depressive disorder, recurrent severe without psychotic features | CPT/HCPCS: 99213 ==

== ENCOUNTER 2020-10-15 14:17 | Outpatient (CLI) | payer BC, SELFPAY ==
--- NOTE | 2020-10-15 14:15 | US_ITS ---
WS: [id number] ABDOMINAL ULTRASOUND LIMITED REASON FOR VISIT: R10.11 - Right upper quadrant pain TECHNIQUE: Grayscale and Doppler ultrasound examination of the abdomen. FINDINGS: Pancreas: No mass or ductal dilatation. Abdominal aorta and IVC: Normal Liver: Liver measures 15.3 cm in length. No focal lesion. Normal echogenicity. Gallbladder: Gallbladder wall thickness measures 0.1 mm. Normal common bile duct diameter. Right kidney: Right kidney measures 9.7 cm x 5.1 cm x 4.2 cm. No mass, calculus, or hydronephrosis. No ascites. US/US abdomen limited [id number] IMPRESSION: No significant abnormality.
== END 2020-10-15 14:18 | disposition home or self-care (01) ==
PROVIDERS: PCP Family Medicine; Visit Provider Nurse Practitioner Family
DX: R10.11 Right upper quadrant pain (principal); R11.10 Vomiting, unspecified
CPT/HCPCS: 76705; 80053; 81003; 81025; 83690; 85025; 87077; 87086; 87184

== ENCOUNTER 2020-10-17 20:24 | Outpatient (CLI) | payer BC, SELFPAY ==
--- NOTE | 2020-10-17 20:29 | CTR_ITS ---
PROCEDURE INFORMATION: Exam: CT Abdomen And Pelvis With Contrast Exam date and time: 10/17/2020 8:50 PM Age: 30 years old Clinical indication: Abdominal pain; Generalized; Patient HX: Diffuse abd pain with n/v x 3 days. ; Additional info: Nausea/vomiting/abdominal pain TECHNIQUE: Imaging protocol: Computed tomography of the abdomen and pelvis with intravenous contrast. Radiation optimization: All CT scans at this facility use at least one of these dose optimization techniques: automated exposure control; mA and/or kV adjustment per patient size (includes targeted exams where dose is matched to clinical indication); or iterative reconstruction. Contrast material: OMNI 300; Contrast volume: 75 ml; Contrast route: INTRAVENOUS (IV); COMPARISON: CT abdomen pelvis w con* [id number] 03/06/2019 12:45 PM RADIATION DOSE METRICS: Total DLP (mGy-cm): 300.06 FINDINGS: Liver: Normal. No mass. Gallbladder and bile ducts: Normal. No calcified stones. No ductal dilation. Pancreas: Normal. No ductal dilation. Spleen: Normal. No splenomegaly. Adrenal glands: Normal. No mass. Kidneys and ureters: Normal. No hydronephrosis. Stomach and bowel: Unremarkable. No obstruction. No mucosal thickening. Appendix: The appendix is normal. Intraperitoneal space: Unremarkable. No free air. No significant fluid collection. Vasculature: Unremarkable. No abdominal aortic aneurysm. Lymph nodes: Unremarkable. No enlarged lymph nodes. Urinary bladder: Mild wall thickening of the urinary bladder measuring up to 8 mm. Reproductive: Unremarkable as visualized. Bones/joints: Unremarkable. No acute fracture. Soft tissues: Unremarkable. CT/CT abdomen pelvis w con* [id number] IMPRESSION: 1. Wall thickening of the urinary bladder is suspicious for cystitis. Clinical correlation recommended. 2. No other acute abnormalities identified in the abdomen or pelvis. Radiation Dose CTDIVOL = (mGy): DLP = 300.06 (mGy-cm)
[2020-10-17] MEDS: iohexol 300 mg/mL 100 mL Btl IV (20:51)
[2020-10-17 21:22] LABS: Basophils % 0.4 %; Eosinophils # 0.1 10^3/uL (0.0-0.8); Eosinophils % 2.4 %; Hematocrit 37.7 % (37.0-47.0); Hemoglobin 12.5 g/dL (11.5-15.3); Lymphocytes # 2.1 10^3/uL (0.8-4.8); Lymphocytes % 38.7 %; Mean Corpuscular HGB Conc 33.2 g/dL (30.0-36.0); Mean Corpuscular Hemoglobin 30.7 pg (28.0-34.0); Mean Corpuscular Volume 92.6 fL (81-99); Mean Platelet Volume 11.3 fL (7.4-10.4); Monocytes # 0.5 10^3/uL (0.2-0.9); Monocytes % 8.3 %; Neutrophils # 2.73 10^3/uL (1.8-7.7); Nucleated Red Blood Cells % 0 %; Platelet Count 310 10^3/cmm (130-400); Red Blood Count 4.07 10^6/uL (4.1-5.3); Red Cell Distribution Width 11.9 % (12.1-15.1); White Blood Count 5.5 10^3/uL (4.0-10.0)
[2020-10-17] MEDS: promethazine 25 mg/mL SDV 1 mL IM (21:24)
[2020-10-17] MEDS: cefTRIAXone 1,000 MG in sodium chloride 0.9% (plus) 50 ML 100 MG IV (21:24)
[2020-10-17 21:37] LABS: Alanine Aminotransferase 10 U/L (0-33); Albumin Level 3.9 g/dL (3.5-5.2); Alkaline Phosphatase 79 IU/L (35-105); Anion Gap 12.7 (5-19); Aspartate Amino Transferase 12 U/L (0-32); Blood Urea Nitrogen 12 mg/dL (6-20); Calcium 8.5 mg/dL (8.5-10.5); Carbon Dioxide 26 mmol/L (22-29); Chloride 106 mmol/L (98-107); Globulin 2.4 g/dL (1.3-4.6); Glomerular Filtration Rate 72.6 mL/min (90-130); Glucose 75 mg/dL (65-115); Lipase 16 U/L (13-60); Osmolality Calculated 290 mOsm/kg (285-295); Potassium 3.7 mmol/L (3.5-5.1); Sodium 141 mmol/L (136-145); Total Bilirubin 0.5 mg/dL (0.15-1.2); Total Protein 6.3 g/dL (6.6-8.7)
[2020-10-17 22:02] VITALS: BMI 19.7
--- NOTE | 2020-10-18 05:42 | P.SS_ITS ---
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 She was moved to a bed on the OB floor. After talking with her more it turns out that she been having abdominal pain and had been treated for cystitis over the last several days. She has been able to eat very little last week. She has been taking in liquids but at times has had a hard time with p.o. intake. She has had multiple episodes of vomiting in the past week. She is seen Sandra Peñaloza has been treated for cystitis. She had had lab work done, and a urinalysis and culture. Her culture grew out Staphylococcus lugdunensis with 100,000 cultures. She has also has epigastric pain and has been treated for that as well.. At the time I evaluated her physically, she had had a liter of LR. Review of Systems General: Reports: 10 or more systems reviewed and unremarkable except in HPI and below Const: Reports: fever(s) Card: Denies: chest pain or irregular heart rhythm Resp: Denies: dyspnea GI: Reports: abdominal pain (The patient has had epigastric pain.), nausea, vomiting and diarrhea (A single episode 3 days ago); Denies: hematemesis, coffee ground emesis, constipation or hematochezia : Reports: flank pain; Denies: difficulty voiding, dysuria, urinary frequency, urinary urgency or urinary hesitancy Skin/Breast: Denies: rash Neuro: Reports: weakness in extremities Home Meds/Allergies Home Medications and Allergies Allergies Allergy/AdvReac Type Severity Reaction Status Date / Time chlorpromazine Allergy Severe Itching, Verified 10/15/20 10:28 [From Thorazine] and throat swelling vancomycin Allergy Severe Red Man Verified 10/15/20 10:28 Syndrome PFSH Acute PFSH: Medical History (Updated 10/18/20 @ 05:57 by Fredrick Ramirez MD) Anxiety with depression Has had depression since at least 2016 well-controlled on Wellbutrin and Prozac prior to the . This is managed by her primary care provider Dr. Lou Carcinoma in situ of endocervix -LEEP performed on 07/08/2018 with positive endocervical margin for ERIC-3. 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 Surgical History History of dilation and curettage x 2 for SAB S/P LEEP LEEP procedure done on 07/08/2018 for ERIC-2-ERIC-3. Pathology showed anterior lip with mild [id number] with negative margins. 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 -Post-LEEP endocervical curettage shows benign endocervical mucosa without malignancy [place] teeth extracted Family History Family/Other Epilepsy Hypertension Denies family history of Cervical cancer Colon cancer Ovarian cancer Breast cancer Uterine cancer Social History Smoking and tobacco status: former smoker Quit status (tobacco): has quit using tobacco Year quit tobacco: 2018 Second hand smoke exposure: No Smoking risk assessment/counseling performed?: No Alcohol intake: former Former alcohol use details: used to drink socially Current gender identity: Female Female Reproductive History: Date of last menstrual period: 04/18/19 Vitals/I&O/Wt Weight last 48 hrs Weight 115 lb Physical Exam Const: COMMON NORMALS: no acute distress (The patient is lying in bed and appears weak and tired.) and patient oriented x3 GENERAL APPEARANCE: cooperative, comfortable and well developed HENMT: COMMON NORMALS: normocephalic and moist oral mucous membranes HEAD & SCALP: normocephalic Chest: COMMONS NORMALS: normal inspection of the chest Resp: COMMON NORMALS: normal respiratory effort and clear to auscultation bilaterally AUSCULTATION: clear to auscultation bilaterally Cardio: COMMON NORMALS: regular rate, regular rhythm, No gallops present (Cardio), No murmurs present (Cardio) and No rub (Cardio) RATE: regular rate RHYTHM: regular rhythm Extremity: COMMON NORMALS: normal to inspection Neuro: COMMON NORMALS: patient oriented x3 and no focal motor deficits Skin: COMMON NORMALS: no rashes or lesions noted GENERAL SKIN EXAM: no rashes or lesions noted Hospital Course Hospital Course The patient was given to liters of LR. She was also given promethazine IM. She was also given a gram of Rocephin. She still have abdominal pain but was feeling better overall. Her vitals were stable. SSS Data Data Completed and Pending: Completed Studies During Hospitalization Category Date Time Status CT abdomen pelvis w con* [id number] Stat Cat Scan 10/17/20 20:29 Completed Addt'l Data from Hospital Stay: The CT scan of the abdomen demonstrated thickened bladder consistent with cystitis but otherwise was unremarkable. Her CBC demonstrated a white blood count of 5.5 with a hemoglobin of 12.5 and a platelet count of 310. Her metabolic panel was remarkable for a total protein of 6.3. Diagnoses at Discharge Discharge Diagnosis (1) Epigastric pain: Status: Acute Permanent problem details: At this point it is not clear if the patient just has a resistant cystitis more time or there is another factor going on. We will be in touch tomorrow and decide whether or not she needs further diagnostics or therapeutics. (2) Nausea & vomiting: Status: Acute (3) Syncope and collapse: Status: Acute (4) Flank pain: Status: Acute (5) Cystitis: Status: Acute Discharge Plan Discharge Patient Disposition: Home Prescriptions: No Action sertraline [Zoloft] 100 mg tablet 100 mg PO DAILY Qty: 30 RF: 2 promethazine 25 mg tablet 25 mg PO TID PRN (Reason: nausea and vomiting) Qty: 30 RF: 0 Discharge Orders: Discharge Order (Routine); Ordered 10/17/20 Ordered By: Fredrick Ramirez Patient Instructions: Abdominal Pain - Adult Discharge Date/Time: 10/17/20 22:30 Attestations Medical Necessity Statement*: The patient was discharged home on the same day. Time Spent in Patient Care*: greater than 30 min Quality Metrics Clinical Quality Measures: During this hospital stay, did patient experience: None Coding Level of Care Code Acute Therapy Administrative Assistant for g Fwd Diagnoses Epigastric pain R10.13 Nausea & vomiting R11.2 Syncope and collapse R55 Flank pain R10.9 Cystitis N30.90
== END 2020-10-17 22:30 | disposition home or self-care (01) ==
LOC: OPOB 20:26 → OBGYN 22:20
PROVIDERS: PCP Family Medicine; Visit Provider Family Medicine
DX: R55 Syncope and collapse (principal); R10.13 Epigastric pain; R11.2 Nausea with vomiting, unspecified; N30.90 Cystitis, unspecified without hematuria; Z87.891 Personal history of nicotine dependence
CPT/HCPCS: 12345; 36415; 74177; 80053; 83690; 85025; 96372; J0696; J2550; Q9967

== ENCOUNTER → 2020-10-31 08:04 | Outpatient (BNVA) | payer BC, SELFPAY | PROVIDERS: PCP Family Medicine; Visit Provider Counselor Professional | DX: F60.5 Obsessive-compulsive personality disorder (principal); F41.1 Generalized anxiety disorder; F33.2 Major depressive disorder, recurrent severe without psychotic features | CPT/HCPCS: 90834 ==

== ENCOUNTER → 2020-11-12 08:35 | Outpatient (BNVA) | payer OTHER, SELFPAY | PROVIDERS: PCP Family Medicine; Visit Provider Counselor Professional | DX: F60.5 Obsessive-compulsive personality disorder (principal); F33.2 Major depressive disorder, recurrent severe without psychotic features; F41.1 Generalized anxiety disorder | CPT/HCPCS: 90834 ==

== ENCOUNTER → 2020-11-23 08:50 | Outpatient (BNVA) | payer SELFPAY | PROVIDERS: PCP Family Medicine; Visit Provider Counselor Professional | DX: F33.2 Major depressive disorder, recurrent severe without psychotic features (principal); F60.5 Obsessive-compulsive personality disorder; F41.1 Generalized anxiety disorder | CPT/HCPCS: 90834 ==

== ENCOUNTER → 2020-12-04 08:25 | Outpatient (BNVA) | payer SELFPAY | PROVIDERS: PCP Family Medicine; Visit Provider Counselor Professional | DX: F33.2 Major depressive disorder, recurrent severe without psychotic features (principal); F60.5 Obsessive-compulsive personality disorder; F41.1 Generalized anxiety disorder | CPT/HCPCS: 90834 ==

== ENCOUNTER → 2020-12-26 08:01 | Outpatient (BNVA) | payer OTHER, SELFPAY | PROVIDERS: PCP Family Medicine; Visit Provider Obstetrics & Gynecology | DX: Z30.9 Encounter for contraceptive management, unspecified (principal); Z30.09 Encounter for other general counseling and advice on contraception; Z30.430 Encounter for insertion of intrauterine contraceptive device | CPT/HCPCS: 81025 ==

== ENCOUNTER → 2021-01-02 08:11 | Outpatient (BNVA) | payer OTHER, SELFPAY | PROVIDERS: PCP Family Medicine; Visit Provider Counselor Professional | DX: F33.2 Major depressive disorder, recurrent severe without psychotic features (principal); F60.5 Obsessive-compulsive personality disorder; F41.1 Generalized anxiety disorder | CPT/HCPCS: 90834 ==

== ENCOUNTER → 2021-01-07 07:57 | Outpatient (BNVA) | payer OTHER, SELFPAY | PROVIDERS: PCP Family Medicine; Visit Provider Psychiatry & Neurology Psychiatry | DX: F60.5 Obsessive-compulsive personality disorder (principal); F41.1 Generalized anxiety disorder; F33.2 Major depressive disorder, recurrent severe without psychotic features | CPT/HCPCS: 99214 ==

== ENCOUNTER → 2021-01-10 07:51 | Outpatient (BNVA) | payer OTHER, SELFPAY | PROVIDERS: PCP Family Medicine; Visit Provider Counselor Professional | DX: F33.2 Major depressive disorder, recurrent severe without psychotic features (principal); F60.5 Obsessive-compulsive personality disorder; F41.1 Generalized anxiety disorder | CPT/HCPCS: 90834 ==

== ENCOUNTER → 2021-03-11 09:13 | Outpatient (BNVA) | payer OTHER, SELFPAY | PROVIDERS: PCP Family Medicine; Visit Provider Counselor Professional | DX: F33.2 Major depressive disorder, recurrent severe without psychotic features (principal); F60.5 Obsessive-compulsive personality disorder; F41.1 Generalized anxiety disorder | CPT/HCPCS: 90834 ==

== ENCOUNTER → 2021-03-29 08:09 | Outpatient (BNVA) | payer OTHER, SELFPAY | PROVIDERS: PCP Family Medicine; Visit Provider Counselor Professional | DX: F33.2 Major depressive disorder, recurrent severe without psychotic features (principal); F60.5 Obsessive-compulsive personality disorder; F41.1 Generalized anxiety disorder | CPT/HCPCS: 90834 ==

== ENCOUNTER 2021-05-15 17:21 | Outpatient (CLI) | payer OTHER, SELFPAY ==
[2021-05-16 14:32] LABS: Coronavirus Test Green County Not Detected
== END 2021-05-15 17:22 | disposition home or self-care (01) ==
LOC: OPOB 17:23
PROVIDERS: PCP Family Medicine; Visit Provider Family Medicine
DX: O26.899 Other specified pregnancy related conditions, unspecified trimester (principal); Z3A.00 Weeks of gestation of pregnancy not specified; Z20.822 Contact with and (suspected) exposure to COVID-19
CPT/HCPCS: 87635

== ENCOUNTER → 2021-05-31 11:02 | Outpatient (BNVA) | payer OTHER, SELFPAY | PROVIDERS: PCP Family Medicine; Visit Provider Nurse Practitioner Family | DX: J06.9 Acute upper respiratory infection, unspecified (principal); R50.9 Fever, unspecified; W57.XXXA Bitten or stung by nonvenomous insect and other nonvenomous arthropods, initial encounter; U07.1 COVID-19; Z20.822 Contact with and (suspected) exposure to COVID-19 | CPT/HCPCS: 80053; 86618; 86666; 86757; 87400; 87426 ==

== ENCOUNTER 2021-06-05 04:30 | Outpatient (CLI) | payer OTHER, SELFPAY ==
[2021-06-05 05:56] VITALS: BP 113/72; PULSE 69; RESP 16; O2SAT 98; BMI 22.8
[2021-06-05 06:39] VITALS: BP 110/73; PULSE 66; RESP 17; O2SAT 97
[2021-06-05 07:48] VITALS: BP 110/72; PULSE 66; RESP 19; O2SAT 99
== END 2021-06-05 04:31 | disposition home or self-care (01) ==
LOC: ER 05:10
PROVIDERS: PCP Family Medicine; Visit Provider Nurse Practitioner Family
DX: U07.1 COVID-19 (principal)
CPT/HCPCS: 96365

== ENCOUNTER 2021-10-28 19:15 | Emergency (ER) | payer OTHER, SELFPAY ==
[2021-10-28 19:20] VITALS: PULSE 78; RESP 8; O2SAT 100; BMI 22.3
--- NOTE | 2021-10-28 19:34 | ECG_ITS ---
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 Measurements Intervals [place] Rate: 84 P: 76 [place]: 149 QRS: 85 QRSD: 102 T: 59 QT: 398 QTc: 473 Interpretive Statements SINUS RHYTHM POSSIBLE LEFT ATRIAL ENLARGEMENT [-0.1mV P-WAVE IN V1/V2] POSSIBLE RIGHT VENTRICULAR CONDUCTION DELAY [RSR (QR) IN V1/V2] No previous ECG available for comparison Electronically Signed On 10-28-2021 22:19:01 BANKING OFFICER by Andra Morales M.D. [id number]
--- NOTE | 2021-10-28 19:34 | CTR_ITS ---
PROCEDURE INFORMATION: Exam: CT Angiography Head With Contrast, Arteriography Exam date and time: 10/28/2021 7:34 PM Age: 31 years old Clinical indication: Headache and numbness and weakness; Patient HX: HX of vertebral dissection; Additional info: Prior vertebral dissection TECHNIQUE: Imaging protocol: Computed tomography angiography of the head with contrast. Exam focused on the arteries. 3D rendering (Not supervised by radiologist): MIP and/or 3D reconstructed images were created by the technologist. Radiation optimization: All CT scans at this facility use at least one of these dose optimization techniques: automated exposure control; mA and/or kV adjustment per patient size (includes targeted exams where dose is matched to clinical indication); or iterative reconstruction. Contrast material: OMNI 350; Contrast volume: 95 ml; Contrast route: INTRAVENOUS (IV); COMPARISON: CT angio headneck* [id number] 04/18/2020 11:03 PM RADIATION DOSE METRICS: Total DLP (mGy-cm): 1392.6 FINDINGS: ANTERIOR CIRCULATION: Right internal carotid artery: Unremarkable. Intracranial segment is patent with no significant stenosis. No aneurysm. Right middle cerebral artery: Unremarkable. No occlusion or significant stenosis. No aneurysm. Right anterior cerebral artery: Unremarkable. No occlusion or significant stenosis. No aneurysm. Left internal carotid artery: Unremarkable. Intracranial segment is patent with no significant stenosis. No aneurysm. Left middle cerebral artery: Unremarkable. No occlusion or significant stenosis. No aneurysm. Left anterior cerebral artery: Unremarkable. No occlusion or significant stenosis. No aneurysm. POSTERIOR CIRCULATION: Right vertebral artery: Unremarkable. No occlusion or significant stenosis. No aneurysm. Left vertebral artery: Unremarkable. No occlusion or significant stenosis. No aneurysm. Basilar artery: Unremarkable. No occlusion or significant stenosis. No aneurysm. Right posterior cerebral artery: Unremarkable. No occlusion or significant stenosis. No aneurysm. Left posterior cerebral artery: Unremarkable. No occlusion or significant stenosis. No aneurysm. Brain: No definite mass, mass effect, or midline shift. Cerebral ventricles: No ventriculomegaly. Bones/joints: Unremarkable. No acute fracture. Soft tissues: Unremarkable. PROCEDURE INFORMATION: Exam: CT Angiography Neck With Contrast Exam date and time: 10/28/2021 7:34 PM Age: 31 years old Clinical indication: Headache and numbness and weakness; Patient HX: HX of vertebral dissection; Additional info: Prior vertebral dissection TECHNIQUE: Imaging protocol: Computed tomography angiography of the neck with contrast. 3D rendering (Not supervised by radiologist): MIP and/or 3D reconstructed images were created by the technologist. Radiation optimization: All CT scans at this facility use at least one of these dose optimization techniques: automated exposure control; mA and/or kV adjustment per patient size (includes targeted exams where dose is matched to clinical indication); or iterative reconstruction. Contrast material: OMNI 350; Contrast volume: 95 ml; Contrast route: INTRAVENOUS (IV); COMPARISON: CT angio headneck* [id number] 04/18/2020 11:03 PM RADIATION DOSE METRICS: Total DLP (mGy-cm): 1392.6 FINDINGS: Right common carotid artery: No stenosis. No dissection or occlusion. Right internal carotid artery: No stenosis of the extracranial segment. No dissection or occlusion. Right external carotid artery: No occlusion or stenosis of the origin. Left common carotid artery: No stenosis. No dissection or occlusion. Left internal carotid artery: No stenosis of the extracranial segment. No dissection or occlusion. Left external carotid artery: No occlusion or stenosis of the origin. Right vertebral artery: No stenosis. No dissection or occlusion. Left vertebral artery: No stenosis. No dissection or occlusion. Soft tissues: Normal. No significant soft tissue swelling. Bones/joints: No acute fracture. CT/CT angio [facility]* [id number] IMPRESSION: Negative CT angiogram of the head. Unremarkable exam. IMPRESSION: 1. Negative CT angiogram of the neck. 2. No carotid artery stenosis. 3. No vascular occlusion. 4. Negative for vertebral artery dissection. REFERENCES: NASCET CRITERIA. The degree of internal carotid artery stenosis is based on NASCET criteria. Normal is no stenosis. Mild is less than 50% stenosis. Moderate is 50-69% stenosis. Severe is 70% to 99% stenosis. Total occlusion is no detectable patent lumen.
--- NOTE | 2021-10-28 19:34 | ECG_ITS ---
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 Measurements Intervals [place] Rate: 80 P: 69 [place]: 154 QRS: 75 QRSD: 104 T: 45 QT: 397 QTc: 460 Interpretive Statements SINUS RHYTHM POSSIBLE LEFT ATRIAL ENLARGEMENT [-0.1mV P-WAVE IN V1/V2] POSSIBLE RIGHT VENTRICULAR CONDUCTION DELAY [RSR (QR) IN V1/V2] Compared to ECG 10/28/2021 19:51:25 No significant changes Electronically Signed On 10-28-2021 22:18:53 FINISHING AREA SUPERVISOR by Andra Morales M.D. [id number]
--- NOTE | 2021-10-28 19:34 | CTR_ITS ---
PROCEDURE INFORMATION: Exam: CT Head Without Contrast Exam date and time: 10/28/2021 7:34 PM Age: 31 years old Clinical indication: Altered mental status/memory loss and weakness, extremity; Right; Patient HX: HX of vertebral dissection; Additional info: Symptoms of acute stroke TECHNIQUE: Imaging protocol: Computed tomography of the head without contrast. Radiation optimization: All CT scans at this facility use at least one of these dose optimization techniques: automated exposure control; mA and/or kV adjustment per patient size (includes targeted exams where dose is matched to clinical indication); or iterative reconstruction. Other technique: STROKE PROTOCOL was implemented. COMPARISON: CT head wo con* [id number] 04/18/2020 10:59 PM RADIATION DOSE METRICS: Total DLP (mGy-cm): 792.86 FINDINGS: Brain: Normal. No hemorrhage. Unremarkable white matter. No mass effect. Cerebral ventricles: No ventriculomegaly. Paranasal sinuses: Visualized sinuses are unremarkable. No fluid levels. Mastoid air cells: Visualized mastoid air cells are well aerated. Bones/joints: Unremarkable. No acute fracture. Soft tissues: Unremarkable. CT/CT head wo con* [id number] IMPRESSION: No acute intracranial abnormality. ASSESSMENT: ASPECTS ([place] Stroke Program Early CT Score) is 10.
[2021-10-28] MEDS: iohexol 350 mg/mL 100 mL Btl IV (19:45)
--- NOTE | 2021-10-28 19:47 | ED_ITS ---
HPI - General Adult General: Chief complaint: Weakness Stated complaint: PT said blood clot Time Seen by Provider: 10/28/21 19:34 History of Present Illness: HPI narrative: CC: R sided weakness, slurring of speech, blurriness of vision, and R facial weakness HPI: [31]yo patient w/ hx of L sided vertebral dissection in 2017 prsenting to the ED for acute R sided facial weakness, and R eye visual blurriness, and slurring of speech x 20 minutes. Reports mild chest pain and palpitations around the same time of onset of symptoms. Since then, symptoms have been persistent and have not improved. Denies any chest pain, SOB, palpitations, /GI complaints. Patient is not on any anticoagulation. 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 Patient taking any anticoagulation or antiplatelets at this time Onset: 20 minutes ago Duration: 20 minutes Location: home Severity: severe Review of Systems Narrative: Constitutional: No fever, no chills. HEENT: No vision changes CV: No chest pain, no palpitations PULM: No cough, no dyspnea. GI: No abdominal pain, no N/V/D. : No dysuria MSKEL: No edema SKIN: No new rashes, no lesions. NEURO: Focal R sided weakness, R facial droop and slurring of speech HEME: No visible bruises PSYCH: Normal mood PFS ED PFSH: Medical History (Updated 10/28/21 @ 20:42 by Arianne Zarate MD) Anxiety with depression Has had depression since at least 2016 well-controlled on Wellbutrin and Prozac prior to the . This is managed by her primary care provider Dr. Lou Carcinoma in situ of endocervix -LEEP performed on 07/08/2018 with positive endocervical margin for ERIC-3. No pertinent past medical history Denies diabetes, asthma, seizures, DVT/PE PMD: Dr. 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 Surgical History History of dilation and curettage x 2 for SAB S/P LEEP LEEP procedure done on 07/08/2018 for ERIC-2-ERIC-3. Pathology showed anterior lip with mild [id number]-HBD-1 with negative margins. 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 -Post-LEEP endocervical curettage shows benign endocervical mucosa without malignancy Midkiff teeth extracted Family History Mother Hypertension Grandmother Hypertension Denies family history of Cervical cancer Colon cancer Ovarian cancer Breast cancer Uterine cancer Social History Smoking and tobacco status: former smoker Quit status (tobacco): has quit using tobacco Year quit tobacco: 2017 Second hand smoke exposure: No Smoking risk assessment/counseling performed?: No Alcohol intake: former Former alcohol use details: used to drink socially Current gender identity: Female Female Reproductive History: Date of last menstrual period: 10/24/21 Physical Exam Narrative: EXAM NARRATIVE: Head: Atraumatic Eyes: PERRL, conjunctiva without injection ENT: Mucous membrane moist NECK: Supple without lymphadenopathy LUNGS: CTA CV: RRR ABDOMEN: Soft, nontender EXTREMITY: Normal ROM SKIN: No rash or erythema NEURO: NIHSS: 2 1. Level of Consciousness A) LOC Responsiveness 0 B) LOC Questions 0 C) LOC Commands 0 2. Horizontal Eye Movement 0 3. Visual field test 1 4. Facial Palsy 1 5. Motor Arm 0 6. Motor Leg 0 7. Limb Ataxia 0 9. Language 0 10. Speech 0 11. Extinction and Inattention 0 PSYCH: Normal mood and affect. Course Vital Signs: Vital signs: Vital Signs Pulse Rate 70 10/28/21 20:02 Respiratory Rate 17 10/28/21 20:02 Blood Pressure 116/67 10/28/21 20:02 Pulse Oximetry 100 10/28/21 20:02 MDM - General Adult MDM Narrative: Medical decision making narrative: [31]yo patient w/ pMH of L sided vertebral dissection BIBA for concerns of focal neurological deficit including R sided visual blurriness and mild R sided facial droop. Presentation concerning for possible ischemic stroke requiring workup. NIHSS of 2 Given History and Exam I have lower suspicion for infectious etiology, neurologic changes secondary to toxicologic ingestion, seizure, complex migraine Workup include: POC glucose, CBC, BMP, Troponin, EKG, CT brain/CTA head/neck EKG without evidence of STEMI or ischemia, fingerstick BS not hypoglycemic, and clinical picture does not suggest other stroke mimic. Plan to workup for TIA Lab Findings and workup [8:37pm] On reassessment, NIH stroke scale of 2. CT head/ CTA neck negative for acute pathologies. Case was discussed immediately with neurologist Kane Lopez from [facility]. Given we do not have any hospital beds, I have discussed this case extensively with provider who recommended MRI evaluation. Per provider, if the MRI is negative, the chances of patient having an immediate stroke is minimal given her age. Will order MR brain today. On reassessment at 10:16pm, MRI is negative for any acute ischemic findings. Have discussed these results with [facility] provider Dr. Lopez who recommends with normal MRI, will patient who has no cardiovascular risk factors, this is unlikely to be a stroke patient can be discharged home with aspirin 325 daily for 30 days with close follow-up with neurology. Repeat neurological evaluation did not show any focal weakness or facial droop. Patient continues to have R sided blurriness and this was discussed extensively Dr. Lopez who recommended close follow given normal imaging studies. Patient is 20/200 in the R eye and 20/20 in the L eye. I have discussed case with Dr. Cordell SALAZAR who recommended close follow-up with ophthalmology. Patient will be scheduled for ophthalmology clinic on 11/04/2020. Patient is given strict return precautions for vision, scotoma, visual blindness, or any visual field deficit. I have given patient follow up with our rn case manager to be seen by Dr. Gregory in the next 2 weeks for evaluation of TIA. Patient aware of a call from our rn case manager to schedule for appointment(s) and verbalizes understanding of the importance of following up. Disposition: Discharge. She is given strict return precaution for any worsening symptoms of focal weakness, vision changes, or any speech, double vision, facial droop, or any new concerning complaints. Lab Data: Labs: Lab Results 10/28/21 10/28/21 10/28/21 19:55 20:00 20:00 WBC 6.9 10^3/uL 10^3/ uL (4.0-10.0) RBC 4.09 10^6/uL L 10 ^6/uL (4.1-5.3) Hgb 12.7 g/dL g/dL (11.5-15.3) Hct 37.5 % % (37.0-47.0) MCV 91.7 fl fl (81-99) MCH 31.1 pg pg (28.0-34.0) MCHC 33.9 g/dL g/dL (30.0-36.0) RDW 12.1 % % (12.1-15.1) Plt Count 297 10^3/cmm 10^3 /cmm (130-400) MPV 11.2 fL H fL (7.4-10.4) Neut % (Auto) 43.0 % % Lymph % (Auto) 45.2 % % Sumner % (Auto) 9.1 % % Eos % (Auto) 2.3 % % Baso % (Auto) 0.3 % % Neut # (Auto) 2.97 10^3/uL 10^3 /uL (1.8-7.7) Lymph # (Auto) 3.1 10^3/uL 10^3/ uL (0.8-4.8) Sumner # (Auto) 0.6 10^3/uL 10^3/ uL (0.2-0.9) Eos # (Auto) 0.2 10^3/uL 10^3/ uL (0.0-0.8) Baso # (Auto) 0.0 10^3/uL 10^3/ uL (0.0-0.1) Nucleated RBC % (a uto) 0 % % Nucleated RBCs # 0.0 /100WBC /100W BC PT 12.80 SECONDS SEC ONDS (12.1-14.9) INR 0.93 (0.8-1.2) APTT 34.1 SECONDS SECO NDS (23.9-36.7) Sodium Potassium Chloride Carbon Dioxide Anion Gap BUN Creatinine GFR Calculation Glucose POC Glucose 85 mg/dL mg/dL (70-110) Calculated Osmolal ity Calcium Total Bilirubin AST ALT Alkaline Phosphata se Troponin T Baselin e Total Protein Albumin Globulin Urine Color Urine Appearance Urine pH Ur Specific Gravit y Urine Protein Urine Glucose (UA) Urine Ketones Urine Blood Urine Nitrate Urine Bilirubin Urine Urobilinogen Ur Leukocyte Marni ase Urine RBC Urine WBC Ur Squamous Epith Cells Amorphous Sediment Urine Bacteria Urine Mucus Urine Opiates Scre en Ur Barbiturates Sc reen Ur Phencyclidine S crn Ur Amphetamines Sc reen U Benzodiazepines Scrn Urine Cocaine Scre en U Marijuana (THC) Screen 10/28/21 10/28/21 10/28/21 20:00 20:00 21:01 WBC RBC Hgb Hct MCV MCH MCHC RDW Plt Count MPV Neut % (Auto) Lymph % (Auto) Sumner % (Auto) Eos % (Auto) Baso % (Auto) Neut # (Auto) Lymph # (Auto) Sumner # (Auto) Eos # (Auto) Baso # (Auto) Nucleated RBC % (a uto) Nucleated RBCs # PT INR APTT Sodium 137 mmol/L mmol/L (136-145) Potassium 3.7 mmol/L mmol/L (3.5-5.1) Chloride 102 mmol/L mmol/L (98-107) Carbon Dioxide 24 mmol/L mmol/L (22-29) Anion Gap 14.7 (5-19) BUN 18 mg/dL mg/dL (6-20) Creatinine 0.6 mg/dL mg/dL (0.5-0.9) GFR Calculation 115.1 mL/min mL/m in (90-130) Glucose 85 mg/dL mg/dL (65-115) POC Glucose Calculated Osmolal ity 285 mOsm/kg mOsm/ kg (285-295) Calcium 8.1 mg/dL L mg/dL (8.5-10.5) Total Bilirubin 0.3 mg/dL mg/dL (0.15-1.2) AST 12 U/L U/L (0-32) ALT 12 U/L U/L (0-33) Alkaline Phosphata se 69 IU/L IU/L (35-105) Troponin T Baselin e 6 ng/L ng/L (0-10) Total Protein 6.1 g/dL L g/dL (6.6-8.7) Albumin 3.9 g/dL g/dL (3.5-5.2) Globulin 2.2 g/dL g/dL (1.3-4.6) Urine Color Yellow (Yellow) Urine Appearance Clear (CLEAR) Urine pH 6.5 (5-7) Ur Specific Gravit y 1.015 (1.005-1.030) Urine Protein Neg (Negative) Urine Glucose (UA) Norm (Normal) Urine Ketones Negative (Negative) Urine Blood Neg (Negative) Urine Nitrate Negative (Negative) Urine Bilirubin Neg (Negative) Urine Urobilinogen Neg mg/dL mg/dL (Negative) Ur Leukocyte Marni ase Trace H (Negative) Urine RBC Rare /hpf /hpf (0-2) Urine WBC 15-25 /hpf H /hpf (0-5) Ur Squamous Epith Cells Rare /hpf /hpf (0-5) Amorphous Sediment Not Reportable Urine Bacteria 3+ /hpf H /hpf (NONE) Urine Mucus 1+ /hpf /hpf Urine Opiates Scre en Ur Barbiturates Sc reen Ur Phencyclidine S crn Ur Amphetamines Sc reen U Benzodiazepines Scrn Urine Cocaine Scre en U Marijuana (THC) Screen 10/28/21 21:01 WBC RBC Hgb Hct MCV MCH MCHC RDW Plt Count MPV Neut % (Auto) Lymph % (Auto) Sumner % (Auto) Eos % (Auto) Baso % (Auto) Neut # (Auto) Lymph # (Auto) Sumner # (Auto) Eos # (Auto) Baso # (Auto) Nucleated RBC % (a uto) Nucleated RBCs # PT INR APTT Sodium Potassium Chloride Carbon Dioxide Anion Gap BUN Creatinine GFR Calculation Glucose POC Glucose Calculated Osmolal ity Calcium Total Bilirubin AST ALT Alkaline Phosphata se Troponin T Baselin e Total Protein Albumin Globulin Urine Color Urine Appearance Urine pH Ur Specific Gravit y Urine Protein Urine Glucose (UA) Urine Ketones Urine Blood Urine Nitrate Urine Bilirubin Urine Urobilinogen Ur Leukocyte Marni ase Urine RBC Urine WBC Ur Squamous Epith Cells Amorphous Sediment Urine Bacteria Urine Mucus Urine Opiates Scre en Negative ng/mL ng /mL (Negative) Ur Barbiturates Sc reen Negative ng/mL ng /mL (Negative) Ur Phencyclidine S crn Negative ng/mL ng /mL (Negative) Ur Amphetamines Sc reen Negative ng/mL ng /mL (Negative) U Benzodiazepines Scrn Negative ng/mL ng /mL (Negative) Urine Cocaine Scre en Negative ng/mL ng /mL (Negative) U Marijuana (THC) Screen Negative ng/mL ng /mL (Negative) Imaging Data^: Other Imaging: Radiologist's impression: [address] [address]YH Scan ReportSigned Patient: Medina Olivo #: [id number]: 1990Acct#:[id number]/Sex: 31 / FADM Date: 10/28/21Loc: ERRoom/Bed:Attending Dr: Ordering Provider/Ordering MD: Arianne Zarate MD Date of Service: 10/28/21 Procedure(s): CT angio headneck* [id number] Accession Number(s): [id number] Report Number: [id number] PROCEDURE INFORMATION: Exam: CT Angiography Head With Contrast, Arteriography Exam date and time: 10/28/2021 7:34 PM Age: 31 years old Clinical indication: Headache and numbness and weakness; Patient HX: HX of vertebral dissection; Additional info: Prior vertebral dissection TECHNIQUE: Imaging protocol: Computed tomography angiography of the head with contrast. Exam focused on the arteries. 3D rendering (Not supervised by radiologist): MIP and/or 3D reconstructed images were created by the technologist. Radiation optimization: All CT scans at this facility use at least one of these dose optimization techniques: automated exposure control; mA and/or kV adjustment per patient size (includes targeted exams where dose is matched to clinical indication); or iterative reconstruction. Contrast material: OMNI 350; Contrast volume: 95 ml; Contrast route: INTRAVENOUS (IV); COMPARISON: CT angio headneck* [id number] 04/18/2020 11:03 PM RADIATION DOSE METRICS: Total DLP (mGy-cm): 1392.6 FINDINGS: ANTERIOR CIRCULATION: Right internal carotid artery: Unremarkable. Intracranial segment is patent with no significant stenosis. No aneurysm. Right middle cerebral artery: Unremarkable. No occlusion or significant stenosis. No aneurysm. Right anterior cerebral artery: Unremarkable. No occlusion or significant stenosis. No aneurysm. Left internal carotid artery: Unremarkable. Intracranial segment is patent with no significant stenosis. No aneurysm. Left middle cerebral artery: Unremarkable. No occlusion or significant stenosis. No aneurysm. Left anterior cerebral artery: Unremarkable. No occlusion or significant stenosis. No aneurysm. POSTERIOR CIRCULATION: Right vertebral artery: Unremarkable. No occlusion or significant stenosis. No aneurysm. Left vertebral artery: Unremarkable. No occlusion or significant stenosis. No aneurysm. Basilar artery: Unremarkable. No occlusion or significant stenosis. No aneurysm. Right posterior cerebral artery: Unremarkable. No occlusion or significant stenosis. No aneurysm. Left posterior cerebral artery: Unremarkable. No occlusion or significant stenosis. No aneurysm. Brain: No definite mass, mass effect, or midline shift. Cerebral ventricles: No ventriculomegaly. Bones/joints: Unremarkable. No acute fracture. Soft tissues: Unremarkable. PROCEDURE INFORMATION: Exam: CT Angiography Neck With Contrast Exam date and time: 10/28/2021 7:34 PM Age: 31 years old Clinical indication: Headache and numbness and weakness; Patient HX: HX of vertebral dissection; Additional info: Prior vertebral dissection TECHNIQUE: Imaging protocol: Computed tomography angiography of the neck with contrast. 3D rendering (Not supervised by radiologist): MIP and/or 3D reconstructed images were created by the technologist. Radiation optimization: All CT scans at this facility use at least one of these dose optimization techniques: automated exposure control; mA and/or kV adjustment per patient size (includes targeted exams where dose is matched to clinical indication); or iterative reconstruction. Contrast material: OMNI 350; Contrast volume: 95 ml; Contrast route: INTRAVENOUS (IV); COMPARISON: CT angio headneck* [id number] 04/18/2020 11:03 PM RADIATION DOSE METRICS: Total DLP (mGy-cm): 1392.6 FINDINGS: Right common carotid artery: No stenosis. No dissection or occlusion. Right internal carotid artery: No stenosis of the extracranial segment. No dissection or occlusion. Right external carotid artery: No occlusion or stenosis of the origin. Left common carotid artery: No stenosis. No dissection or occlusion. Left internal carotid artery: No stenosis of the extracranial segment. No dissection or occlusion. Left external carotid artery: No occlusion or stenosis of the origin. Right vertebral artery: No stenosis. No dissection or occlusion. Left vertebral artery: No stenosis. No dissection or occlusion. Soft tissues: Normal. No significant soft tissue swelling. Bones/joints: No acute fracture. CT/CT angio headneck* [id number] IMPRESSION: Negative CT angiogram of the head. Unremarkable exam. IMPRESSION: 1. Negative CT angiogram of the neck. 2. No carotid artery stenosis. 3. No vascular occlusion. 4. Negative for vertebral artery dissection. REFERENCES: NASCET CRITERIA. The degree of internal carotid artery stenosis is based on NASCET criteria. Normal is no stenosis. Mild is less than 50% stenosis. Moderate is 50-69% stenosis. Severe is 70% to 99% stenosis. Total occlusion is no detectable patent lumen. Dictated By:Mich Rehman By:Mich Rehman Date/Time:10/28/21/ 33 [facility] [place], [place] [address]XI Scan ReportSigned Patient: Medina Olivo #: [id number]: 1990Acct#:[id number]/Sex: 31 / FADM Date: 10/28/21Loc: ERRoom/Bed:Attending Dr: Ordering Provider/Ordering MD: Arianne Zarate MD Date of Service: 10/28/21 Procedure(s): CT head wo con* [id number] Accession Number(s): [id number] Report Number: [id number] PROCEDURE INFORMATION: Exam: CT Head Without Contrast Exam date and time: 10/28/2021 7:34 PM Age: 31 years old Clinical indication: Altered mental status/memory loss and weakness, extremity; Right; Patient HX: HX of vertebral dissection; Additional info: Symptoms of acute stroke TECHNIQUE: Imaging protocol: Computed tomography of the head without contrast. Radiation optimization: All CT scans at this facility use at least one of these dose optimization techniques: automated exposure control; mA and/or kV adjustment per patient size (includes targeted exams where dose is matched to clinical indication); or iterative reconstruction. Other technique: STROKE PROTOCOL was implemented. COMPARISON: CT head wo con* [id number] 04/18/2020 10:59 PM RADIATION DOSE METRICS: Total DLP (mGy-cm): 792.86 FINDINGS: Brain: Normal. No hemorrhage. Unremarkable white matter. No mass effect. Cerebral ventricles: No ventriculomegaly. Paranasal sinuses: Visualized sinuses are unremarkable. No fluid levels. Mastoid air cells: Visualized mastoid air cells are well aerated. Bones/joints: Unremarkable. No acute fracture. Soft tissues: Unremarkable. CT/CT head wo con* [id number] IMPRESSION: No acute intracranial abnormality. ASSESSMENT: ASPECTS ([place] Stroke Program Early CT Score) is 10. Dictated By:Mich Rehman By:Mich Rehman Date/Time:10/28/21/ 33 [facility] [place], [place] [address]Muhyjjrm Resonance ReportSigned Patient: Medina Olivo #: [id number]: 1990Acct#:[id number]/Sex: 31 / FADM Date: 10/28/21Loc: ERRoom/Bed:Attending Dr: Ordering Provider/Ordering MD: Arianne Zarate MD Date of Service: 10/28/21 Procedure(s): MR head wo con* [id number] Accession Number(s): [id number] Report Number: [id number] PROCEDURE INFORMATION: Exam: MR Head Without Contrast Exam date and time: 10/28/2021 8:35 PM Age: 31 years old Clinical indication: Other: Eval stroke, RT side tingling TECHNIQUE: Imaging protocol: MR of the head without contrast. COMPARISON: CT head wo con* [id number] 10/28/2021 7:37 PM FINDINGS: Brain: Small foci of T2 hyperintense signal change in the bilateral frontal lobe subcortical white matter. No intracranial mass. No intracranial hemorrhage. No midline shift of brain. No mass effect on the brain. Faulkner matter and white matter interfaces are preserved. No restricted diffusion in the brain parenchyma. No hemosiderin deposition within brain parenchyma. Cerebral ventricles: Normal. No ventriculomegaly. Bones/joints: Unremarkable. Paranasal sinuses: Normal as visualized. No acute sinusitis. Mastoid air cells: Normal as visualized. No mastoid effusion. Orbital cavity: Unremarkable. Soft tissues: Unremarkable. MR/MR head wo con* [id number] IMPRESSION: 1. No acute brain ischemia. 2. Minimal bilateral frontal lobe subcortical white matter changes which are nonspecific. These could represent sequela of chronic microvascular ischemia, demyelinating disease, vasculitis, migraine headaches, amongst other entities. Dictated By:Mich Rehman By:Mich Rehman Date/Time:10/28/21/ 34 Discharge Plan Discharge Patient Disposition: Home Clinical Impression: Visual blurriness Condition: Stable Prescriptions: New aspirin 325 mg tablet 325 mg PO DAILY 30 Days Qty: 30 RF: 0 No Action Mirena 20 mcg/24 hours (6 yrs) 52 mg intrauterine device 1 device intrauterine .every 5 years Qty: 1 RF: 0 dexamethasone 6 mg tablet 6 mg PO DAILY Qty: 6 RF: 0 azithromycin 250 mg tablet See Rx Instructions PO .COMPLEX Qty: 6 RF: 0 promethazine 25 mg tablet 25 mg PO TID PRN (Reason: nausea and vomiting) Qty: 20 RF: 0 sertraline [Zoloft] 100 mg tablet 150 mg PO DAILY Qty: 45 RF: 2 bupropion HCl [Wellbutrin XL] 300 mg tablet extended release 24 hr 300 mg PO QAM Qty: 30 RF: 2 Discharge Orders: Discharge ED (Routine); Ordered 10/28/21 Ordered By: Arianne Zarate Referrals: Xiang Lou MD [Primary Care Provider] - Discharge Diet: Advance as tolerated Discharge Activity: Resume usual activity Patient Instructions: Blurred Vision (ED) Activity Restrictions/Additional Instructions: Our rn case manager will have you follow-up with Dr. Gregory in the next few days. You would be expected to have a phone call with our rn case manager who will put you on the schedule. Please come back to the emergency room if you have any lightheadedness, weakness, slurring of speech, facial droop, visual changes, or any new or concerning complaints. Coding Level of Care Code ED Developmental Education Instructor for Bronwyn Garcia
[2021-10-28 20:02] VITALS: BP 116/67; PULSE 70; RESP 17; O2SAT 100
[2021-10-28 20:02] LABS: Glucose Point of Care 85 mg/dL (70-110)
[2021-10-28 20:08] LABS: Basophils % 0.3 %; Eosinophils # 0.2 10^3/uL (0.0-0.8); Eosinophils % 2.3 %; Hematocrit 37.5 % (37.0-47.0); Hemoglobin 12.7 g/dL (11.5-15.3); Lymphocytes # 3.1 10^3/uL (0.8-4.8); Lymphocytes % 45.2 %; Mean Corpuscular HGB Conc 33.9 g/dL (30.0-36.0); Mean Corpuscular Hemoglobin 31.1 pg (28.0-34.0); Mean Corpuscular Volume 91.7 fl (81-99); Mean Platelet Volume 11.2 fL (7.4-10.4); Monocytes # 0.6 10^3/uL (0.2-0.9); Monocytes % 9.1 %; Neutrophils # 2.97 10^3/uL (1.8-7.7); Nucleated Red Blood Cells % 0 %; Platelet Count 297 10^3/cmm (130-400); Red Blood Count 4.09 10^6/uL (4.1-5.3); Red Cell Distribution Width 12.1 % (12.1-15.1); White Blood Count 6.9 10^3/uL (4.0-10.0)
[2021-10-28 20:21] LABS: INR 0.93 (0.8-1.2)
[2021-10-28 20:22] LABS: Partial Thromboplastin Time 34.1 SECONDS (23.9-36.7)
[2021-10-28 20:27] LABS: Troponin(5th) Baseline 6 ng/L (0-10)
[2021-10-28 20:28] LABS: Alanine Aminotransferase 12 U/L (0-33); Albumin Level 3.9 g/dL (3.5-5.2); Alkaline Phosphatase 69 IU/L (35-105); Anion Gap 14.7 (5-19); Aspartate Amino Transferase 12 U/L (0-32); Blood Urea Nitrogen 18 mg/dL (6-20); Calcium 8.1 mg/dL (8.5-10.5); Carbon Dioxide 24 mmol/L (22-29); Chloride 102 mmol/L (98-107); Globulin 2.2 g/dL (1.3-4.6); Glomerular Filtration Rate 115.1 mL/min (90-130); Glucose 85 mg/dL (65-115); Osmolality Calculated 285 mOsm/kg (285-295); Potassium 3.7 mmol/L (3.5-5.1); Sodium 137 mmol/L (136-145); Total Bilirubin 0.3 mg/dL (0.15-1.2); Total Protein 6.1 g/dL (6.6-8.7)
--- NOTE | 2021-10-28 20:35 | MRR_ITS ---
PROCEDURE INFORMATION: Exam: MR Head Without Contrast Exam date and time: 10/28/2021 8:35 PM Age: 31 years old Clinical indication: Other: Eval stroke, RT side tingling TECHNIQUE: Imaging protocol: MR of the head without contrast. COMPARISON: CT head wo con* [id number] 10/28/2021 7:37 PM FINDINGS: Brain: Small foci of T2 hyperintense signal change in the bilateral frontal lobe subcortical white matter. No intracranial mass. No intracranial hemorrhage. No midline shift of brain. No mass effect on the brain. Faulkner matter and white matter interfaces are preserved. No restricted diffusion in the brain parenchyma. No hemosiderin deposition within brain parenchyma. Cerebral ventricles: Normal. No ventriculomegaly. Bones/joints: Unremarkable. Paranasal sinuses: Normal as visualized. No acute sinusitis. Mastoid air cells: Normal as visualized. No mastoid effusion. Orbital cavity: Unremarkable. Soft tissues: Unremarkable. MR/MR head wo con* [id number] IMPRESSION: 1. No acute brain ischemia. 2. Minimal bilateral frontal lobe subcortical white matter changes which are nonspecific. These could represent sequela of chronic microvascular ischemia, demyelinating disease, vasculitis, migraine headaches, amongst other entities.
[2021-10-28 21:26] LABS: Cocaine Screen Urine Negative (Negative); PCP Screen Urine Negative (Negative); THC Screen Urine Negative (Negative)
--- NOTE | 2021-10-28 21:34 | ECG_ITS ---
[facility] Test Date: 2021-10-28 Pat Name: Medina Olivo Department: Room: Gender: Female Leather Sprayer: : 1990 Requested By: Arianne Zarate Order Number: [id number] Trino MD: Andra Morales M.D. Measurements Intervals [place] Rate: 58 P: 70 OR: 145 QRS: 77 QRSD: 104 T: 50 QT: 451 QTc: 446 Interpretive Statements SINUS BRADYCARDIA Compared to ECG 10/28/2021 19:52:25 Sinus rhythm no longer present Electronically Signed On 10-28-2021 22:30:23 ASSISTANT TERMINAL MANAGER by Andra Morales M.D. [email or web address]
[2021-10-28 22:01] LABS: Add Urine Microscopic? YES; Bilirubin Urine Neg (Negative); Blood Urine Neg (Negative); Glucose Urine UA Norm (Normal); Ketones Urine Negative (Negative); Leukocyte Esterase Urine Trace (Negative); Nitrate Urine Negative (Negative); Protein Urine Neg (Negative); Specific Gravity, Urine 1.015 (1.005-1.030); Urine Appearance Clear (CLEAR); Urine Color Yellow (Yellow); Urobilinogen Urine Neg (Negative); pH Urine 6.5 (5-7)
[2021-10-28 22:08] LABS: Amphetamines Screen Urine Negative (Negative); Barbiturates Screen Urine Negative (Negative); Benzodiazepines Screen Urine Negative (Negative); Opiate Screen Urine Negative (Negative)
[2021-10-28 22:09] LABS: RBC Urine RARE /hpf (0-2); WBC Urine 15-25 /hpf (0-5)
[2021-10-28 22:10] LABS: Add Urine Culture? Yes; Bacteria Urine 3+ /hpf; Mucus Urine 1+ /hpf; Squamous Epithelial Cell Urine RARE /hpf (0-5)
[2021-10-28 22:46] VITALS: BP 116/65; PULSE 58; O2SAT 99
[2021-10-28 22:46] LABS: Troponin 5 2HR 8.26 ng/L (0-10); Troponin 5 2HR Delta 2.26 ABS# (0-10)
--- NOTE | 2021-10-29 11:04 | DCPLANNER ---
Addendum entered by Alyssa Sinclair 11/15/21 06:31: intervention manager was notified by the office of Dr. Gregory that the clinic called and left a message for patient to call the clinic to schedule an appointment. Original Note: intervention manager had message to schedule a follow up appointment for patient with neurology for possible stroke like symptoms. intervention manager emailed patients information to the neurology group. Patients information will be printed and reviewed. Clinic will call patient with appointment information.
== END 2021-10-28 22:45 | disposition home or self-care (01) ==
PROVIDERS: Emergency Provider Emergency Medicine; PCP Family Medicine
DX: H53.8 Other visual disturbances (principal); Z85.41 Personal history of malignant neoplasm of cervix uteri; Z87.891 Personal history of nicotine dependence
CPT/HCPCS: 36415; 36416; 70450; 70496; 70498; 70551; 80053; 80306; 81001; 82962; 84484; 85025; 85610; 85730; 87086; 93005; 99284; Q9967

== ENCOUNTER 2022-02-19 09:47 | Outpatient (CLI) | payer OTHER, SELFPAY | END 2022-02-19 09:48 | disposition home or self-care (01) | LOC: LAB 09:49 | PROVIDERS: PCP Family Medicine; Visit Provider Nurse Practitioner Women's Health | DX: N92.6 Irregular menstruation, unspecified (principal) | CPT/HCPCS: 84702 ==

== ENCOUNTER → 2022-02-28 09:48 | Outpatient (BNVA) | payer OTHER, SELFPAY | PROVIDERS: PCP Family Medicine; Visit Provider Obstetrics & Gynecology | DX: Z36.89 Encounter for other specified antenatal screening (principal) | CPT/HCPCS: 76817 ==

== ENCOUNTER → 2022-03-04 10:27 | Outpatient (BNVA) | payer OTHER, SELFPAY | PROVIDERS: PCP Family Medicine; Visit Provider Nurse Practitioner Women's Health | DX: Z34.90 Encounter for supervision of normal pregnancy, unspecified, unspecified trimester (principal) | CPT/HCPCS: 84315; 87086 ==

== ENCOUNTER → 2022-03-25 10:11 | Outpatient (BNVA) | payer OTHER, SELFPAY | PROVIDERS: PCP Family Medicine; Visit Provider Obstetrics & Gynecology | DX: O09.899 Supervision of other high risk pregnancies, unspecified trimester (principal); Z3A.00 Weeks of gestation of pregnancy not specified; Z86.19 Personal history of other infectious and parasitic diseases | CPT/HCPCS: 80307; 84315; 85027; 86592; 86762; 86803; 86850; 86900; 87086; 87340 ==

== ENCOUNTER → 2022-04-08 09:32 | Outpatient (BNVA) | payer OTHER, SELFPAY | PROVIDERS: PCP Family Medicine; Visit Provider Obstetrics & Gynecology | DX: O09.899 Supervision of other high risk pregnancies, unspecified trimester (principal); Z3A.00 Weeks of gestation of pregnancy not specified | CPT/HCPCS: 84315; 87086; 87491; 87591 ==

== ENCOUNTER → 2022-04-10 13:24 | Outpatient (BNVA) | payer OTHER, SELFPAY | PROVIDERS: PCP Family Medicine; Visit Provider Emergency Medicine | DX: Z02.1 Encounter for pre-employment examination (principal) | CPT/HCPCS: 86480; 86706; 86735; 86762; 86787 ==

== ENCOUNTER → 2022-04-15 11:09 | Outpatient (BNVA) | payer OTHER, SELFPAY | PROVIDERS: PCP Family Medicine; Visit Provider Registered Nurse | DX: S20.469A Insect bite (nonvenomous) of unspecified back wall of thorax, initial encounter (principal); W57.XXXA Bitten or stung by nonvenomous insect and other nonvenomous arthropods, initial encounter; R53.83 Other fatigue; Z91.89 Other specified personal risk factors, not elsewhere classified | CPT/HCPCS: 81000; 85025; 86618; 86666; 86757 ==

== ENCOUNTER 2022-04-16 14:21 | Outpatient (CLI) | payer OTHER, SELFPAY ==
[2022-04-18 14:27] LABS: Rubeola Antibody IGG <13.50 AU/mL
== END 2022-04-16 14:22 | disposition home or self-care (01) ==
PROVIDERS: PCP Family Medicine; Visit Provider Emergency Medicine
DX: Z02.1 Encounter for pre-employment examination (principal)
CPT/HCPCS: 86765

== ENCOUNTER 2022-06-02 06:00 | Outpatient (CLI) | payer SELFPAY | END 2022-06-02 06:01 | disposition home or self-care (01) | LOC: RAD 08-28 07:11 | PROVIDERS: PCP Family Medicine; Visit Provider Obstetrics & Gynecology | DX: Z36.89 Encounter for other specified antenatal screening (principal); Z3A.20 20 weeks gestation of pregnancy | CPT/HCPCS: 76805; 76817 ==

== ENCOUNTER 2022-06-30 11:52 | Outpatient (CLI) | payer OTHER, SELFPAY ==
--- NOTE | 2022-06-30 11:45 | US_ITS ---
WS: [id number] ULTRASOUND OB FOCUSED HISTORY: O34.40 - Maternal care for other abnormalities of cervix,..., Follow-up heart and face . COMPARISON: 06/02/2022 Single intrauterine gestation. Fetus is now in breech position. The cervix was difficult to visualize on transabdominal imaging and translabial imaging. Transvaginal evaluation of the cervix demonstrate s a length of 2.8 cm. There is no funneling or fluid within the cervical canal. This does represent a slight decrease in length as compared to the most recent examination of 06/02/2022. heart rate at 144 BPM. Placenta is posterior. Placenta grade 1. Amniotic fluid appears normal. Evaluation of the lip and nose is normal. A normal four-chamber heart is still not apparent. This may be due to position. Outflow tracts continued to be limited. US/US OB lmt with transvaginal IMPRESSION: 1. Cervical length has decreased to 2.8 cm. There is no funneling evident. No insufficiency. 2. Normal evaluation of the nose and lip. 3. Continued very limited evaluation of the heart. This is probably due to position of the fetus but a four-chamber heart is normal outflow tracts are not well visualized. Notified women[facility] health clinic at 06/30/2022 12:45 PM.
== END 2022-06-30 11:53 | disposition home or self-care (01) ==
PROVIDERS: PCP Family Medicine; Visit Provider Obstetrics & Gynecology
DX: O34.40 Maternal care for other abnormalities of cervix, unspecified trimester (principal)
CPT/HCPCS: 76815; 76817

== ENCOUNTER → 2022-07-01 10:14 | Outpatient (BNVA) | payer OTHER, SELFPAY | PROVIDERS: PCP Family Medicine; Visit Provider Nurse Practitioner Women's Health | DX: O09.899 Supervision of other high risk pregnancies, unspecified trimester (principal); Z3A.00 Weeks of gestation of pregnancy not specified | CPT/HCPCS: 84315; 85025 ==

== ENCOUNTER → 2022-07-04 11:14 | Outpatient (BNVA) | payer OTHER, SELFPAY | PROVIDERS: PCP Family Medicine; Visit Provider Obstetrics & Gynecology | DX: O26.879 Cervical shortening, unspecified trimester (principal); Z3A.00 Weeks of gestation of pregnancy not specified; Z98.890 Other specified postprocedural states | CPT/HCPCS: 76817 ==

== ENCOUNTER 2022-07-14 01:00 | Observation (INO) | payer OTHER, SELFPAY ==
[2022-07-13] VITALS (10 sets, daily range): BP systolic 107–130; BP diastolic 54–71; PULSE 69–83; RESP 19; BMI 27.1
--- NOTE | 2022-07-13 22:04 | USR_ITS ---
PROCEDURE INFORMATION: Exam: US , Limited Exam date and time: 07/13/2022 10:41 PM Age: 32 years old Clinical indication: Lmp or gestational age (in weeks): 26w6d; Labor and delivery abnormalities; Pre-term labor; ; Additional info: labor, cervical length and estimated weight LABS AND CLINICAL REPORTS: Last menstrual period start date: 01/13/2022 Gestational age (Established): 25 w 6 d Estimated due date (Established): 10/20/2022 TECHNIQUE: Imaging protocol: Real-time ultrasound of the maternal uterus with image documentation. Exam focused on the clinical indication. COMPARISON: US OB transvaginal [id number] 07/04/2022 11:21 AM FINDINGS: Gestation: Intrauterine gestation. heart rate: 138 bpm presentation: Cephalic Placenta: Posterior placenta. No retroplacental fluid collection demonstrated. Amniotic fluid: Amniotic fluid volume is normal. Amniotic fluid index: JAMAL is 19.7 cm. BIOMETRY: Gestational age (AUA): 26 w 6 d Estimated due date (AUA): 10/20/2022 Estimated weight: Estimated weight is 996 g (2 lb 3 oz). Biparietal diameter (BPD): 6.7 cm. EGA (BPD) is 27 w 0 d Head circumference (HC): 24.8 cm. EGA (HC) is 27 w 0 d Abdominal circumference (AC): 22.7 cm. EGA (AC) is 27 w 1 d Femur length (FL): 4.9 cm. EGA (FL) is 26 w 3 d Cephalic Index (CI): 79.7 % HC/AC: 1.09 FL/HC: 19.7 % FL/BPD: 72.9 % FL/AC: 21.6 % MATERNAL: Cervix: Cervical length measures 2.6 cm. US/US OB >=14 wk fetus w transvag IMPRESSION: 1. A single live intrauterine gestation is identified. Biometric measurements correlate to a gestational age of 26 weeks 6 days. Appropriate cardiac activity is documented. 2. Cervical length is 2.6 cm.
[2022-07-13] MEDS: NIFEdipine 10 mg Capsule PO (22:22)
[2022-07-13] MEDS: lactated ringers 1,000 ML 999 ML IV (22:30)
[2022-07-13 22:52] LABS: Bilirubin Urine Neg (Negative); Blood Urine Neg (Negative); Glucose Urine UA Norm (Normal); Ketones Urine 1+ (Negative); Leukocyte Esterase Urine Negative (Negative); Nitrate Urine Negative (Negative); Protein Urine Neg (Negative); Urine Appearance Clear (CLEAR); Urine Color Yellow (Yellow); Urobilinogen Urine Neg (Negative); pH Urine 6.5 (5-7)
[2022-07-13 22:53] LABS: Add Urine Culture? No; Bacteria Urine TRACE /hpf; RBC Urine 0-4 /hpf (0-2); Squamous Epithelial Cell Urine 0-4 /hpf (0-5); WBC Urine 0-4 /hpf (0-5)
[2022-07-14] VITALS (35 sets, daily range): BP systolic 92–112; BP diastolic 53–66; PULSE 60–85; RESP 17–18; TEMP 36.3
[2022-07-14] MEDS: diphenhydrAMINE 25 mg Capsule PO (00:25)
[2022-07-14] MEDS: dextrose 5%-lactated ringers 1,000 ML 125 ML IV (00:25)
--- NOTE | 2022-07-14 07:05 | P.TNLD_ITS ---
OB L&D Triage Visit Information: Date of evaluation: 07/14/22 Reason for evaluation: threatened labor Comments/Additional reason(s) for visit: Medina is a 32-year-old 143 with an IUP 26W0D who presented on the evening of 07/13/2022. She reported that she had been feeling intermittent painful contractions for 2 days prior. 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 She describes them as being unrelenting. Since arrival to L&D she had an SVE which revealed a closed cervix, a transvaginal ultrasound for cervical length and weights, IV fluid bolus, and 1 dose of nifedipine 10 mg. The cervical length was neither reassuring nor none reassuring as the measurement was between 2 cm and 3 cm. This hospital does not carry fibronectin so that was not ordered. In addition, she had a normal urinalysis. It was decided to observe her overnight so she was provided a dose of Vistaril to help her sleep. She was able to get some rest and when she awoke the uterine contractions that resolved. Evaluation: Variability: Moderate (11-25) monitor accelerations: Present 15x15 monitor decelerations: None Cervical dilation (cm): 0 station: -5 Laboratory results: Laboratory Tests 07/13/22 22:34 Urine Color Yellow Urine Appearance Clear Urine pH 6.5 Ur Specific Gravit y 1.010 Urine Protein Neg Urine Glucose (UA) Norm Urine Ketones 1+ H Urine Blood Neg Urine Nitrate Negative Urine Bilirubin Neg Urine Urobilinogen Neg Ur Leukocyte Marni ase Negative Urine RBC 0-4 H Urine WBC 0-4 H Ur Squamous Epith Cells 0-4 H Amorphous Sediment Not Reportable Urine Bacteria Trace Vital signs: Vital Signs - 24 hr 07/13/22 21:35 07/13/22 21:50 07/13/22 22:05 Temperature Pulse Rate 75 83 82 Respiratory Rate Blood Pressure 130/68 124/71 122/67 07/13/22 22:38 07/13/22 22:53 07/13/22 23:08 Temperature Pulse Rate 75 81 75 Respiratory Rate Blood Pressure 124/61 108/55 109/57 07/13/22 23:23 07/13/22 23:38 07/13/22 23:55 Temperature Pulse Rate 72 73 69 Respiratory Rate Blood Pressure 109/59 107/60 113/54 07/14/22 00:08 07/14/22 00:20 07/14/22 00:35 Temperature Pulse Rate 69 72 66 Respiratory Rate Blood Pressure 107/56 112/57 108/66 07/14/22 00:51 07/14/22 01:04 07/14/22 01:19 Temperature Pulse Rate 60 68 73 Respiratory Rate Blood Pressure 101/58 108/55 102/57 07/14/22 01:34 07/14/22 01:49 07/14/22 02:05 Temperature Pulse Rate 74 72 68 Respiratory Rate Blood Pressure 102/58 94/53 104/61 07/14/22 02:19 07/13/22 22:02 07/14/22 02:34 Temperature Pulse Rate 71 67 Respiratory Rate 19 H Blood Pressure 100/57 101/56 07/14/22 02:49 07/14/22 03:04 07/14/22 01:00 Temperature Pulse Rate 76 65 Respiratory Rate 17 Blood Pressure 101/58 99/54 07/14/22 03:19 07/14/22 03:00 07/14/22 03:34 Temperature Pulse Rate 73 73 Respiratory Rate 18 Blood Pressure 102/58 92/55 07/14/22 03:49 07/14/22 04:00 07/14/22 04:04 Temperature 97.3 F L Pulse Rate 78 80 Respiratory Rate 18 Blood Pressure 99/55 100/58 07/14/22 04:19 07/14/22 04:34 07/14/22 04:49 Temperature Pulse Rate 72 75 81 Respiratory Rate Blood Pressure 100/54 98/54 102/59 07/14/22 05:04 07/14/22 05:19 07/14/22 05:34 Temperature Pulse Rate 68 72 85 Respiratory Rate Blood Pressure 98/55 97/54 98/56 07/14/22 05:49 07/14/22 06:04 07/14/22 06:19 Temperature Pulse Rate 66 77 68 Respiratory Rate Blood Pressure 98/53 100/57 101/57 07/14/22 06:20 07/14/22 06:34 07/14/22 06:49 Temperature Pulse Rate 73 73 Respiratory Rate 18 Blood Pressure 104/59 102/58 07/13/22 22:02 Temperature Pulse Rate Respiratory Rate 19 H Blood Pressure Care FORREST Calculator Estimated Delivery Date Method Current WG Current Estimate 10/20/22 LMP (Certain) 26w 0d Other Estimates 10/18/22 Ultrasound #1 26w 2d Expected Delivery Route/Plan Term normal spontaneous vaginal delivery Specific Issues/Plans * ANXIETY/LQPWUTLZCU-srrqaakzeklt-dodr-controlled with Wellbutrin and Zoloft- continue management by Dr. Mendez * VERTEBRAL ARTERY DISSECTION-no complications with last -aspirin 81 mg once a day * HX LEEP-no concerns with previous -transvaginal sonograms * HISTORY OF HERPES---plan for suppression at 36 weeks * GBS BACTERIURIA-status posttreatment-test of cure at next visit-antibiotics in labor * LIMITED [facility]; Has not been present in this clinic for care since 14 weeks. Returned at 24 weeks. Final Diagnosis Final Diagnosis (1) Alteration in comfort associated with uterine contractions: Plan: Discharge home with labor, PPROM, and preeclampsia precautions. Status: Acute Code(s): N85.8 - Other specified noninflammatory disorders of uterus (2) Short cervix during in second trimester: Status: Acute Code(s): O26.872 - Cervical shortening, second trimester (3) Threatened labor: Status: Acute Code(s): O47.00 - False labor before 37 completed weeks of gestation, unspecified trimester Coding Level of Care Code Acute Carrier Loader for Chg Fwd Diagnoses Alteration in comfort associated with uterine contractions N85.8 Short cervix during in second trimester O26.872 Threatened labor O47.00
== END 2022-07-14 07:40 | disposition home or self-care (01) ==
LOC: OPOB 07:19 → OBGYN 07:19
PROVIDERS: Admitting Provider Obstetrics & Gynecology; PCP Family Medicine; Visit Provider Obstetrics & Gynecology
DX: O47.02 False labor before 37 completed weeks of gestation, second trimester (principal); O26.872 Cervical shortening, second trimester; O99.342 Other mental disorders complicating pregnancy, second trimester; F41.9 Anxiety disorder, unspecified; F32.A Depression, unspecified; Z3A.26 26 weeks gestation of pregnancy
CPT/HCPCS: 36415; 59025; 76805; 76817; 81001; 87086; 99211; G0378

== ENCOUNTER → 2022-07-28 09:49 | Outpatient (BNVA) | payer OTHER, SELFPAY | PROVIDERS: PCP Family Medicine; Visit Provider Obstetrics & Gynecology | DX: O09.899 Supervision of other high risk pregnancies, unspecified trimester (principal); Z86.19 Personal history of other infectious and parasitic diseases; Z3A.00 Weeks of gestation of pregnancy not specified | CPT/HCPCS: 76817; 82950; 84315; 85027 ==

== ENCOUNTER 2022-08-02 22:20 | Outpatient (CLI) | payer OTHER, SELFPAY ==
[2022-08-02 22:33] VITALS: TEMP 36.5
[2022-08-02 22:34] VITALS: BP 133/77; PULSE 82
[2022-08-02 22:36] VITALS: BMI 27.3
[2022-08-02 23:01] VITALS: RESP 18
[2022-08-02 23:32] LABS: Actim Prom Negative
[2022-08-02 23:49] LABS: Add Urine Microscopic? NO; Charge for UA Resulting for Rev
[2022-08-02 23:50] LABS: Bilirubin Urine Negative (Negative); Blood Urine Negative (Negative); Glucose Urine UA Negative (Normal); Ketones Urine 1+ (Negative); Leukocyte Esterase Urine Negative (Negative); Nitrate Urine Negative; Protein Urine Negative (Negative); Specific Gravity, Urine 1.025 (1.005-1.030); Urine Appearance Clear (CLEAR); Urine Color Yellow (Yellow); Urobilinogen Urine 0.2 mg/dL (Negative); pH Urine 6.5 (5-7)
[2022-08-03 00:13] VITALS: BP 124/74; PULSE 94
[2022-08-03] MEDS: dextrose 5%-lactated ringers 1,000 ML 999 ML IV ×2 (00:54→01:51)
[2022-08-03 02:07] VITALS: BP 109/56; PULSE 83
== END 2022-08-03 02:19 | disposition home or self-care (01) ==
LOC: OPOB 22:25 → OBGYN 22:25
PROVIDERS: PCP Family Medicine; Visit Provider Obstetrics & Gynecology
DX: O26.899 Other specified pregnancy related conditions, unspecified trimester (principal); Z3A.00 Weeks of gestation of pregnancy not specified; R10.9 Unspecified abdominal pain; N89.8 Other specified noninflammatory disorders of vagina
CPT/HCPCS: 59025; 81003; 84112; 99211

== ENCOUNTER → 2022-08-04 08:48 | Outpatient (BNVA) | payer OTHER, SELFPAY | PROVIDERS: PCP Family Medicine; Referring Provider Obstetrics & Gynecology; Visit Provider Obstetrics & Gynecology | DX: O26.879 Cervical shortening, unspecified trimester (principal); Z3A.00 Weeks of gestation of pregnancy not specified | CPT/HCPCS: 76817 ==

== ENCOUNTER → 2022-09-22 09:16 | Outpatient (BNVA) | payer OTHER, SELFPAY | PROVIDERS: PCP Family Medicine; Visit Provider Nurse Practitioner Women's Health | DX: O36.5930 Maternal care for other known or suspected poor fetal growth, third trimester, not applicable or unspecified (principal); Z3A.36 36 weeks gestation of pregnancy | CPT/HCPCS: 76816 ==

== ENCOUNTER 2022-09-26 17:40 | Outpatient (CLI) | payer OTHER, SELFPAY ==
[2022-09-26] VITALS (14 sets, daily range): BP systolic 112–127; BP diastolic 64–79; PULSE 68–87; RESP 18; TEMP 36.4; O2SAT 92–99
[2022-09-26 18:30] LABS: Protein Urine Neg (Negative); Urine Appearance Clear (CLEAR); Urine Color Yellow (Yellow); pH Urine 8 (5-7)
[2022-09-26 18:31] LABS: Bilirubin Urine Neg (Negative); Blood Urine Neg (Negative); Glucose Urine UA 2+ (Normal); Ketones Urine Negative (Negative); Leukocyte Esterase Urine Negative (Negative); Nitrate Urine Negative (Negative); Sulfosalicylic Acid Urine Negative (Negative); Urobilinogen Urine Norm (Negative)
[2022-09-26 18:43] LABS: Add Urine Culture? No; RBC Urine 0-4 /hpf (0-2); Squamous Epithelial Cell Urine 0-4 /hpf (0-5)
[2022-09-26] MEDS: HYDROcodone-acetaminophen 5-325 mg Tablet 1 TAB PO (19:42)
[2022-09-26] MEDS: methocarbamol 500 mg Tablet PO (19:43)
--- NOTE | 2022-09-26 20:20 | P.TNLD_ITS ---
OB L&D Triage Visit Information: Date of evaluation: 09/27/22 Comments/Additional reason(s) for visit: September 26, 2022,? 1952 32 y.o. EDC? October 20, 2022, at 36 w 4 d No complications Presents to L&D c/o two-day history of right flank pain ? and feeling of UCs, 6-10 minutes apart No fever, chills + nausea.? Vomited x one this morning Had h/o pyelonephritis with second , treated with IV antibiotics Had episode of cystitis earlier this ? Urine culture at that time showed + Group B strep No h/o kidney stones No c/o dysuria, blood in urine Has been tolerating PO fluids well PGYNHx:? h/o herpes genitalis, last outbreak 2008 PMHx:? anxiety ?h/o spontaneous vertebral artery dissection with thrombosis in 2019 PSHx:?LEEP of cervix, 07-08-2018, ERIC III with + endocervical margin ?D&C x two for SAB Meds:? Wellbutrin ?Zoloft All:?chlorpromazine, vancomycin Exam:? afebrile,? VS? normal ?Comfortable, awake, alert, in no discomfort ?Abd:? soft, nontender ?Back:? mild tenderness on palpation right costovertebral angle ?Cervix:? per RN,? 2 cm ?Ext:? normal External monitor: ? heart tracing good variability,? + accelerations UA?negative for WBCs, nitrites, leukocyte esterase ?0-4? RBCs Ob sono done 09-22-22? cephalic Blood type? O? + GBS?+? (from urine culture earlier in present ) A/P: 36 w 4 d c/o right flank pain ddx include pyelonephritis, cystitis, kidney stone ? vs. muscle spasm ? vs. labor UA normal Plan give Percocet, robaxin Plan recheck cervix Evaluation: monitor accelerations: Present 15x15 station: -2 Laboratory results: Laboratory Tests 09/26/22 18:15 Urine Color Yellow Urine Appearance Clear Urine pH 8 H Ur Specific Gravit y 1.010 Urine Protein Neg Urine Glucose (UA) 2+ H Urine Ketones Negative Urine Blood Neg Urine Nitrate Negative Urine Bilirubin Neg Prot Sulfosalicyli c Acd Negative Urine Urobilinogen Norm Ur Leukocyte Marni ase Negative Urine RBC 0-4 H Urine WBC None Ur Squamous Epith Cells 0-4 H Amorphous Sediment Not Reportable Urine Bacteria None Vital signs: Vital Signs - 24 hr 09/26/22 17:47 11/25/22 18:19 09/26/22 18:19 Pulse Rate 82 Respiratory Rate 18 18 Blood Pressure 127/64 Oxygen Delivery Me thod Room Air Care FORREST Calculator Estimated Delivery Date Method Current WG Current Estimate 10/20/22 LMP (Certain) 36w 5d Other Estimates 10/18/22 Ultrasound #1 37w 0d Expected Delivery Route/Plan Term normal spontaneous vaginal delivery Specific Issues/Plans * ANXIETY/RAEPKPPUPG-scyznjskevhv-nlay-controlled with Wellbutrin and Zoloft- continue management by Dr. Mendez * VERTEBRAL ARTERY DISSECTION-no complications with last -aspirin 81 mg once a day * HX LEEP-no concerns with previous -transvaginal sonograms * HISTORY OF HERPES---plan for suppression at 36 weeks * GBS BACTERIURIA-status posttreatment-test of cure at next visit-antibiotics in labor * LIMITED [facility]; Has not been present in this clinic for care since 14 weeks. Returned at 24 weeks. Coding Level of Care Code Acute Refractory Worker for Bronwyn Garcia
--- NOTE | 2022-09-26 20:24 | P.TNLD_ITS ---
OB L&D Triage Visit Information: Date of evaluation: 09/26/22 Comments/Additional reason(s) for visit: September 26, 2022,? 1952 32 y.o. EDC? October 20, 2022, at 36 w 4 d No complications Presents to L&D c/o two-day history of right flank pain ? and feeling of UCs, 6-10 minutes apart No fever, chills + nausea.? Vomited x one this morning Had h/o pyelonephritis with second , treated with IV antibiotics Had episode of cystitis earlier this ? Urine culture at that time showed + Group B strep No h/o kidney stones No c/o dysuria, blood in urine Has been tolerating PO fluids well PGYNHx:? h/o herpes genitalis, last outbreak 2008 PMHx:? anxiety ?h/o spontaneous vertebral artery dissection with thrombosis in 2019 PSHx:?LEEP of cervix, 07-08-2018, ERIC III with + endocervical margin ?D&C x two for SAB Meds:? Wellbutrin ?Zoloft All:?chlorpromazine, vancomycin Exam:? afebrile,? VS? normal ?Comfortable, awake, alert, in no discomfort ?Abd:? soft, nontender ?Back:? mild tenderness on palpation right costovertebral angle ?Cervix:? per RN,? 2 cm ?Ext:? normal External monitor: ? heart tracing good variability,? + accelerations UA?negative for WBCs, nitrites, leukocyte esterase ?0-4? RBCs Ob sono done 09-22-22? cephalic Blood type? O? + GBS?+? (from urine culture earlier in present ) A/P: 36 w 4 d c/o right flank pain ddx include pyelonephritis, cystitis, kidney stone ? vs. muscle spasm ? vs. labor UA normal Plan give Percocet, robaxin Plan recheck cervix Evaluation: monitor accelerations: Present 15x15 station: -2 Laboratory results: Laboratory Tests 09/26/22 18:15 Urine Color Yellow Urine Appearance Clear Urine pH 8 H Ur Specific Gravit y 1.010 Urine Protein Neg Urine Glucose (UA) 2+ H Urine Ketones Negative Urine Blood Neg Urine Nitrate Negative Urine Bilirubin Neg Prot Sulfosalicyli c Acd Negative Urine Urobilinogen Norm Ur Leukocyte Marni ase Negative Urine RBC 0-4 H Urine WBC None Ur Squamous Epith Cells 0-4 H Amorphous Sediment Not Reportable Urine Bacteria None Vital signs: Vital Signs - 24 hr 09/26/22 17:47 11/25/22 18:19 09/26/22 18:19 Pulse Rate 82 Respiratory Rate 18 18 Blood Pressure 127/64 Oxygen Delivery Me thod Room Air Care FORREST Calculator Estimated Delivery Date Method Current WG Current Estimate 10/20/22 LMP (Certain) 36w 4d Other Estimates 10/18/22 Ultrasound #1 36w 6d Expected Delivery Route/Plan Term normal spontaneous vaginal delivery Specific Issues/Plans * ANXIETY/TVBTDPEXHX-zqeszyulvquc-svxi-controlled with Wellbutrin and Zoloft- continue management by Dr. Mendez * VERTEBRAL ARTERY DISSECTION-no complications with last -aspirin 81 mg once a day * HX LEEP-no concerns with previous -transvaginal sonograms * HISTORY OF HERPES---plan for suppression at 36 weeks * GBS BACTERIURIA-status posttreatment-test of cure at next visit-antibiotics in labor * LIMITED [facility]; Has not been present in this clinic for care since 14 weeks. Returned at 24 weeks. Coding Level of Care Code Acute Company Truck Driver for Bronwyn Garcia
--- NOTE | 2022-09-26 20:47 | USR_ITS ---
PROCEDURE INFORMATION: Exam: US Retroperitoneal; Complete; Kidneys and Bladder Exam date and time: 09/26/2022 9:29 PM Age: 32 years old Clinical indication: Abdominal pain; Flank; Right; ; Patient HX: Hydronephrosis with previous ; Additional info: Right flank pain. Approximally 37-38 weeks gestation. TECHNIQUE: Imaging protocol: Real-time ultrasound of the retroperitoneum with image documentation. Complete exam focused on the kidneys and bladder. COMPARISON: US abdomen limited [id number] 10/15/2020 2:12 PM FINDINGS: The right kidney measures 12.7 cm in length. The left kidney measures 13.3 cm in length. There is moderate to severe right hydronephrosis, with prominent dilation of the right renal pelvis. The right renal pelvis measures up to about 4 cm in diameter. The visible portion of the proximal right ureter is also dilated, up to 17 mm in diameter. There is mild left hydronephrosis. The visible portion of the proximal left ureter is mildly dilated, up to 3-4 mm. Significance and of the hydronephrosis is not certain from this exam. Possibly this could still represent hydronephrosis of . Other possible etiologies would include ureteral calculi, and pyelonephritis. Please correlate clinically. No definite perinephric fluid. The renal parenchymal thickness and echogenicity are within normal limits. There is no sonographically visible renal calculus, mass, or cyst. The included images of the urinary bladder appear essentially unremarkable. Bilateral ureteral jets were demonstrated in the urinary bladder. US/US renal BI* [id number] IMPRESSION: 1. Moderate to severe right hydronephrosis, details above. 2. Mild left hydronephrosis. 3. Overall significance and etiology not certain, see above discussion. 4. Other details/findings discussed above.
--- NOTE | 2022-09-26 22:25 | PM.OBGYPN ---
CORRESPONDENCE RENEW CLERK Subjective Subjective: Interval history: September 26, 2022, 2104 Patient states pain not relieved with Percocet, robaxin, and heating pad States pain different from uterine contraction pains Cx:? (per RN), unchanged at 2-3 cm External monitor:? UCs 1 q 10-15 minutes ? heart tracing good variability, + accelerations A/P: 36 w 4 d c/o right flank pain ddx include pyelonephritis, cystitis, kidney stone ? vs. muscle spasm ? vs. labor UA normal Not relieved with Percocet, robaxin, and heating pad Not in obvious active labor Plan obtain ultrasound of kidney Labor: Station: -3 Amniotic Membrane Status: Intact Monitor Mode: External Contraction Pattern: Irregular Vitals/I&O/Wt Last Vital Signs Pulse 69 09/26/22 21:56 Resp 18 09/26/22 18:19 BP 125/79 09/26/22 21:56 O2 Del Method 09/26/22 18:19 Weight last 48 hrs Weight 169 lb Data 09/26/22 22:58 09/26/22 22:58 Attestations Medical Necessity Statement*: continue evaluation for right flank pain at 37 weeks gestation Coding Level of Care Code Acute Unit Technician for Chg Radha
[2022-09-26 23:04] LABS: Basophils % 0.2 %; Eosinophils # 0.1 10^3/uL (0.0-0.8); Eosinophils % 0.6 %; Hematocrit 33.8 % (37.0-47.0); Hemoglobin 11.2 g/dL (11.5-15.3); Lymphocytes # 2.4 10^3/uL (0.8-4.8); Lymphocytes % 21.4 %; Mean Corpuscular HGB Conc 33.1 g/dL (30.0-36.0); Mean Corpuscular Hemoglobin 29.9 pg (28.0-34.0); Mean Corpuscular Volume 90.1 fl (81-99); Monocytes # 0.9 10^3/uL (0.2-0.9); Monocytes % 8.2 %; Neutrophils # 7.85 10^3/uL (1.8-7.7); Neutrophils % 68.7 %; Nucleated Red Blood Cells % 0 %; Platelet Count 282 10^3/cmm (130-400); Red Blood Count 3.75 10^6/uL (4.1-5.3); White Blood Count 11.4 10^3/uL (4.0-10.0)
[2022-09-26] MEDS: butorphanol 2 mg/mL SDV 1 mL IVP (23:09)
[2022-09-26] MEDS: lactated ringers 1,000 ML 125 ML IV (23:10)
[2022-09-26 23:22] LABS: Alanine Aminotransferase 8 U/L (0-33); Albumin Level 3.2 g/dL (3.5-5.2); Alkaline Phosphatase 132 U/L (35-105); Anion Gap 13.8 (5-19); Aspartate Amino Transferase 16 U/L (0-32); Blood Urea Nitrogen 5 mg/dL (6-20); Calcium 8.5 mg/dL (8.5-10.5); Carbon Dioxide 21 mmol/L (22-29); Chloride 104 mmol/L (98-107); Globulin 2.8 g/dL (1.3-4.6); Glomerular Filtration Rate 141.2 mL/min (90-130); Glucose 78 mg/dL (65-115); Osmolality Calculated 276 mOsm/kg (285-295); Potassium 3.8 mmol/L (3.5-5.1); Sodium 135 mmol/L (136-145); Total Bilirubin 0.4 mg/dL (0.15-1.2)
--- NOTE | 2022-09-27 01:05 | P.PN_ITS ---
CAMERA SYSTEMS ENGINEER Subjective Subjective: Interval history: September 27, 2022, 0005 Patient still c/o severe right flank pain VS:? stable,? afebrile External monitor:? UCs? 1 q 15-20? minutes ? heart tracing reassuring Cx:? (exam by me)?? 2 cm / 75% / -4 / posterior LABS: CBC? WBC? 11.4 ? Hgb? 11.2 ? Plts? 282? K CMP, LFTs? normal Renal US? right-sided hydronephrosis, possibly secondary to A/P: 36 w 5 d Right flank pain DDx: Pyelonephritis ? Doubt since temp, UA, and WBCs normal Hydronephrosis, ureteral obstruction ? This is most likely in view of ultrasound findings ? Management would be pain relief ? If pain management becomes difficult or inadequate, then consider Urology consult Liver/GB pain ? Doubt since LFTs are normal Placental abruption ? Doubt in view of absence of h/o trauma; absence of vaginal bleeding; and ? presence of reassuring heart tracing throughout active labor ? doubt since repeated cervical exam have remained the same GI origin, appendicitis ? Doubt since patient has been able to tolerate PO;? normal WBC;? and ? normal abdominal exam muscle spasm ? possible ? will give Stadol 2 mg and evaluate response will likely keep patient overnight for observation due to pain Labor: Station: -3 Amniotic Membrane Status: Intact Monitor Mode: External Contraction Pattern: Irregular Vitals/I&O/Wt Last Vital Signs Temp 97.6 F 09/26/22 22:26 Pulse 68 09/26/22 23:57 Resp 18 09/26/22 22:26 BP 113/66 09/26/22 23:57 Pulse Ox 97 09/26/22 23:17 O2 Del Method 09/26/22 18:19 Weight last 48 hrs Weight 169 lb Data 09/26/22 22:58 09/26/22 22:58 Attestations Medical Necessity Statement*: continue evaluation and management of right fla nk pain at 37 weeks gestation Coding Level of Care Code Acute Quality Control Associate for Chg Radha
--- NOTE | 2022-09-27 03:17 | P.PN_ITS ---
DIRECTOR BUSINESS DEVELOPMENT Subjective Subjective: Interval history: September 27, 2022, 314 Patient received stadol 2 mg IV at 0030 States pain is 3 / 10 No nausea, vomiting Exam:? resting comfortably in no distress ? Afebrile, VS? normal A/P: 36 w 5 d Right flank pain Likely -associated right hydronephrosis / ureteral obstruction Plan treat with pain medication Continue to observe Labor: Station: -3 Amniotic Membrane Status: Intact Monitor Mode: External Contraction Pattern: Irregular Vitals/I&O/Wt Last Vital Signs Temp 97.6 F 09/26/22 22:26 Pulse 68 09/26/22 23:57 Resp 18 09/26/22 22:26 BP 113/66 09/26/22 23:57 Pulse Ox 97 09/26/22 23:17 O2 Del Method 09/26/22 18:19 Weight last 48 hrs Weight 169 lb Data 09/26/22 22:58 09/26/22 22:58 Attestations Medical Necessity Statement*: continue management of flank pain at 37 weeks gestation Coding Level of Care Code Acute Applications Specialist for Chg Radha
[2022-09-27] MEDS: acetaminophen 325 mg Tablet 650 MG PO ×2 (03:28→07:39)
[2022-09-27 07:43] VITALS: BP 109/60; PULSE 67
[2022-09-27 07:59] VITALS: BP 106/56; PULSE 67
--- NOTE | 2022-09-27 10:33 | P.PN_ITS ---
CITY SUPERINTENDENT Subjective Subjective: Interval history: September 27, 2022, 0910 Patient rested during the night, but now pain has returned States pain is 5/10 No nausea, vomiting, dysuria Exam:? afebrile, VS normal ? Comfortable ? Abd:? soft, nontender NST?? reactive A/P: 36 w 5 d Fetus reassuring Not in labor Right flank pain Most likely secondary to hydronephrosis of right kidney Discussed patient with Dr. Malin, urologist, by phone Recommend pain relief;? no need for stent at this time Plan rx Percocet Discussed with patient pain management in-hospital vs. as outpatient Patient wants to go home Precautions given to patient Call / return to hospital if fever, chills, severe pain, nausea, vomiting, dysuria, hematuria See Dr. Estevez Thursday or [facility] Plan discharge to home Discharge meds:? Percocet ? Macrobid one po daily Labor: Station: -3 Amniotic Membrane Status: Intact Monitor Mode: External Contraction Pattern: Irregular Vitals/I&O/Wt Last Vital Signs Temp 97.6 F 09/26/22 22:26 Pulse 67 09/27/22 07:59 Resp 18 09/26/22 22:26 BP 106/56 09/27/22 07:59 Pulse Ox 97 09/26/22 23:17 O2 Del Method 09/26/22 18:19 09/26/22 09/27/22 09/27/22 22:59 06:59 14:59 Intake Total 520.833 / 520.833 Balance 520.833 / 520.833 Weight last 48 hrs Weight 169 lb Data 09/26/22 22:58 09/26/22 22:58 Attestations Medical Necessity Statement*: right flank pain, hydronephrosis, at 37 weeks gestation Coding Level of Care Code Acute School Operations Manager for Chg Radha
--- NOTE | 2022-09-27 10:35 | P.DS_ITS ---
Discharge Providers CLAIMS SERVICE ADJUSTOR Date of Admission: September 26, 2022 Date of Discharge: 09/27/22 Attending Provider at Admission: Damien Kitchen MD Attending Provider at Discharge: Damien Kitchen MD Primary CLAIMS SERVICE ADJUSTOR: Dr. Estevez Primary Care Provider: Xiang Lou MD Diagnoses at Discharge Discharge Diagnosis (1) : Status: Acute (2) Hydronephrosis due to obstruction of ureter: Status: Acute (3) Flank pain in patient: Status: Acute Reason for Visit Reason for Visit: right-sided flank pain Hospital Course Hospital Course see last progress note. Patient managed with pain relief History History History 8 Term 2 1 Miscarriages/Ectopic 4 Living Children 3 Discharge Data Studies Completed and Pending Completed Studies During Hospitalization Category Date Time Status US renal BI* [id number] Stat Ultrasound 09/26/22 20:47 Completed Radiology Impressions Renal Ultrasound 09/26/22 20:47 IMPRESSION: 1. Moderate to severe right hydronephrosis, details above. 2. Mild left hydronephrosis. 3. Overall significance and etiology not certain, see above discussion. 4. Other details/findings discussed above. Laboratory Results WBC 11.4 10^3/uL (4.0-10.0) H 09/26/22 22:58 RBC 3.75 10^6/uL (4.1-5.3) L 09/26/22 22:58 Hgb 11.2 g/dL (11.5-15.3) L 09/26/22 22:58 Hct 33.8 % (37.0-47.0) L 09/26/22 22:58 MCV 90.1 fl (81-99) 09/26/22 22:58 MCH 29.9 pg (28.0-34.0) 09/26/22 22:58 MCHC 33.1 g/dL (30.0-36.0) 09/26/22 22:58 RDW 13.0 % (12.1-15.1) 09/26/22 22:58 Plt Count 282 10^3/cmm (130-400) 09/26/22 22:58 MPV 11.0 fL (7.4-10.4) H 09/26/22 22:58 Neut % (Auto) 68.7 % 09/26/22 22:58 Lymph % (Auto) 21.4 % 09/26/22 22:58 [place] % (Auto) 8.2 % 09/26/22 22:58 Eos % (Auto) 0.6 % 09/26/22 22:58 Baso % (Auto) 0.2 % 09/26/22 22:58 Neut # (Auto) 7.85 10^3/uL (1.8-7.7) H 09/26/22 22:58 Lymph # (Auto) 2.4 10^3/uL (0.8-4.8) 09/26/22 22:58 [place] # (Auto) 0.9 10^3/uL (0.2-0.9) 09/26/22 22:58 Eos # (Auto) 0.1 10^3/uL (0.0-0.8) 09/26/22 22:58 Baso # (Auto) 0.0 10^3/uL (0.0-0.1) 09/26/22 22:58 Nucleated RBC % (auto) 0 % 09/26/22 22:58 Nucleated RBCs # 0.0 /100WBC 09/26/22 22:58 Sodium 135 mmol/L (136-145) L 09/26/22 22:58 Potassium 3.8 mmol/L (3.5-5.1) 09/26/22 22:58 Chloride 104 mmol/L (98-107) 09/26/22 22:58 Carbon Dioxide 21 mmol/L (22-29) L 09/26/22 22:58 Anion Gap 13.8 (5-19) 09/26/22 22:58 BUN 5 mg/dL (6-20) L 09/26/22 22:58 Creatinine 0.5 mg/dL (0.5-0.9) 09/26/22 22:58 GFR Calculation 141.2 mL/min (90-130) H 09/26/22 22:58 Glucose 78 mg/dL (65-115) 09/26/22 22:58 Calculated Osmolality 276 mOsm/kg (285-295) L 09/26/22 22:58 Calcium 8.5 mg/dL (8.5-10.5) 09/26/22 22:58 Total Bilirubin 0.4 mg/dL (0.15-1.2) 09/26/22 22:58 AST 16 U/L (0-32) 09/26/22 22:58 ALT 8 U/L (0-33) 09/26/22 22:58 Alkaline Phosphatase 132 U/L (35-105) H 09/26/22 22:58 Total Protein 6.0 g/dL (6.6-8.7) L 09/26/22 22:58 Albumin 3.2 g/dL (3.5-5.2) L 09/26/22 22:58 Globulin 2.8 g/dL (1.3-4.6) 09/26/22 22:58 Urine Color Yellow (Yellow) 09/26/22 18:15 Urine Appearance Clear (CLEAR) 09/26/22 18:15 Urine pH 8 (5-7) H 09/26/22 18:15 Ur Specific [place] 1.010 (1.005-1.030) 09/26/22 18:15 Urine Protein Neg (Negative) 09/26/22 18:15 Urine Glucose (UA) 2+ (Normal) H 09/26/22 18:15 Urine Ketones Negative (Negative) 09/26/22 18:15 Urine Blood Neg (Negative) 09/26/22 18:15 Urine Nitrate Negative (Negative) 09/26/22 18:15 Urine Bilirubin Neg (Negative) 09/26/22 18:15 Prot Sulfosalicylic Acd Negative (Negative) 09/26/22 18:15 Urine Urobilinogen Norm mg/dL (Negative) 09/26/22 18:15 Ur Leukocyte Esterase Negative (Negative) 09/26/22 18:15 Urine RBC 0-4 /hpf (0-2) H 09/26/22 18:15 Urine WBC None /hpf (0-5) 09/26/22 18:15 Ur Squamous Epith Cells 0-4 /hpf (0-5) H 09/26/22 18:15 Amorphous Sediment Not Reportable 09/26/22 18:15 Urine Bacteria None /hpf (NONE) 09/26/22 18:15 Vitals Last Vital Signs Temp 97.6 F 09/26/22 22:26 Pulse 67 09/27/22 07:59 Resp 18 09/26/22 22:26 BP 106/56 09/27/22 07:59 Pulse Ox 97 09/26/22 23:17 O2 Del Method 09/26/22 18:19 Discharge Plan Discharge Patient Disposition: Home Prescriptions: New Percocet 10-325 mg tablet 1 tab PO Q6H Qty: 20 0RF Macrobid 100 mg capsule 100 mg PO ONCE 10 Days Qty: 10 0RF Rx Instructions: must administer with a meal/food No Action Gummies 400 mcg-35 mg- 25 mg-5 mg tablet,chewable 1 tab PO DAILY valacyclovir [Valtrex] 500 mg tablet 500 mg PO BID Qty: 60 1RF bupropion HCl [Wellbutrin XL] 300 mg tablet extended release 24 hr 300 mg PO QAM Qty: 30 2RF sertraline [Zoloft] 100 mg tablet 200 mg PO DAILY Qty: 60 2RF Baby Aspirin 81 mg PO DAILY Discharge Orders: Discharge Order (Routine); Ordered 09/27/22 Ordered By: Damien Kitchen Diet: Regular Activity: Limit activity as instructed Patient Instructions: Oxycodone/Acetaminophen (By mouth), Nitrofurantoin Combination (By mouth), Hydronephrosis (GEN) Activity Restrictions/Additional Instructions: follow up with on Thursday Return to L&D with any of the following: Fever, Chills, Increased pain or any concerns. Discharge Attestations CLAIMS SERVICE ADJUSTOR Time Spent in Discharge Care*: critical care time Coding Level of Care Code Acute Channel Director for Bronwyn Garcia Diagnoses Z34.90 Hydronephrosis due to obstruction of ureter N13.1 Flank pain in patient O26.899; R10.9
== END 2022-09-27 10:40 | disposition home or self-care (01) ==
LOC: OPOB 17:43 → OBGYN 17:43
PROVIDERS: PCP Family Medicine; Visit Provider Obstetrics & Gynecology
DX: O26.893 Other specified pregnancy related conditions, third trimester (principal); Z3A.37 37 weeks gestation of pregnancy; N13.1 Hydronephrosis with ureteral stricture, not elsewhere classified; R10.9 Unspecified abdominal pain
CPT/HCPCS: 12345; 36415; 59025; 76770; 80053; 81001; 85025; 99211; J0595; J7120

== ENCOUNTER 2022-10-04 06:15 | Inpatient (IN) | payer OTHER, SELFPAY ==
[2022-10-03 22:59] VITALS: BP 125/76; PULSE 88; TEMP 35.9
[2022-10-03 23:05] VITALS: BMI 28.6
[2022-10-03 23:14] VITALS: BP 112/59; PULSE 82
[2022-10-03 23:20] VITALS: RESP 15
[2022-10-03 23:29] VITALS: BP 104/60; PULSE 82
[2022-10-03 23:45] VITALS: BP 101/56; PULSE 87
[2022-10-03 23:59] VITALS: BP 107/60; PULSE 83
[2022-10-04] VITALS (82 sets, daily range): BP systolic 87–148; BP diastolic 51–85; PULSE 61–115; RESP 16–18; TEMP 36.1–37.1; O2SAT 99–100
[2022-10-04 00:24] LABS: Bilirubin Urine Neg (Negative); Blood Urine Neg (Negative); Glucose Urine UA 1+ (Normal); Ketones Urine 1+ (Negative); Leukocyte Esterase Urine Negative (Negative); Nitrate Urine Negative (Negative); Protein Urine Neg (Negative); Sulfosalicylic Acid Urine Negative (Negative); Urine Appearance Clear (CLEAR); Urine Color Yellow (Yellow); Urobilinogen Urine Neg (Negative); pH Urine 8 (5-7)
[2022-10-04 00:25] LABS: RBC Urine 0-4 /hpf (0-2); WBC Urine 0-4 /hpf (0-5)
[2022-10-04 00:26] LABS: Add Urine Culture? No
[2022-10-04 00:36] LABS: Glucose Point of Care 80 mg/dL (70-110)
--- NOTE | 2022-10-04 00:52 | PM.OBTRLD ---
OB L&D Triage Visit Information: Date of evaluation: 10/04/22 Comments/Additional reason(s) for visit: October 04, 2022, 0020 OB NOTE 32 y.o. EDC? October 20, 2022, at 37 w 5 d Was seen last week here for severe right flank pain ? Dxd with obstructive uropathy, hydronephrosis ? No evidence of pyelonephritis ? Treated conservatively with pain medications and discharge home Returns today c/o lower abdominal cramps, radiating to right side + uterine contractions with pain States pain is different from previous right flank pain, although right flank pain is still there No vaginal bleeding or fluid leakage + movements No fever, chills + nausea, vomiting PGYNHx:? h/o herpes genitalis, last outbreak 2008 PMHx:? anxiety ?h/o spontaneous vertebral artery dissection with thrombosis in 2019 PSHx:? LEEP of cervix, 07-08-2018, ERIC III with + endocervical margin ?D&C x two for SAB Meds:? Wellbutrin ?Zoloft All:?chlorpromazine, vancomycin Exam:?afebrile,? VS? normal ?Awake, alert, in moderate discomfort ?Abd:? soft, nontender ?Back:? mild tenderness on palpation right costovertebral angle ?Cervix:? (by my exam)? 2 cm / 75% / -4 / posterior ?Ext:? normal External monitor:? + UCs 1 q 15 minutes ? heart tracing good variability,? + accelerations UA?normal;? 1+? ketones Ob sono done 09-22-22? cephalic Blood type? O? + GBS?+? (from urine culture earlier in present ) A/P: 37 w 5 d c/o uterine contractions, lower abdominal cramps cervical exam unchanged from last week not in obvious labor at this time will continue to monitor plan IV fluids, pain medication right hydronephrosis stable Evaluation: monitor accelerations: Present 15x15 station: -2 Laboratory results: Laboratory Tests 10/03/22 10/04/22 23:21 00:26 POC Glucose 80 Urine Color Yellow Urine Appearance Clear Urine pH 8 H Ur Specific [place]it y 1.010 Urine Protein Neg Urine Glucose (UA) 1+ H Urine Ketones 1+ H Urine Blood Neg Urine Nitrate Negative Urine Bilirubin Neg Prot Sulfosalicyli c Acd Negative Urine Urobilinogen Neg Ur Leukocyte Marni ase Negative Urine RBC 0-4 H Urine WBC 0-4 H Ur Squamous Epith Cells 10-15 H Amorphous Sediment Not Reportable Urine Bacteria None Vital signs: Vital Signs - 24 hr 10/03/22 22:59 10/03/22 23:14 10/03/22 23:29 Temperature 96.6 F L Pulse Rate 88 82 82 Respiratory Rate Blood Pressure 125/76 112/59 104/60 Oxygen Delivery Me thod 10/03/22 23:45 10/03/22 23:59 10/04/22 00:14 Temperature Pulse Rate 87 83 89 Respiratory Rate Blood Pressure 101/56 107/60 109/66 Oxygen Delivery Me thod 10/04/22 00:30 10/04/22 00:45 10/03/22 23:20 Temperature Pulse Rate 74 82 Respiratory Rate 15 Blood Pressure 107/55 107/61 Oxygen Delivery Me thod Room Air Care FORREST Calculator Estimated Delivery Date Method Current WG Current Estimate 10/20/22 LMP (Certain) 37w 5d Other Estimates 10/18/22 Ultrasound #1 38w 0d Expected Delivery Route/Plan Term normal spontaneous vaginal delivery Specific Issues/Plans ANXIETY/MKCZCZCDCV-euadbnxqkejt-huzi-controlled with Wellbutrin and Zoloft-continue management by Dr. Mendez VERTEBRAL ARTERY DISSECTION-no complications with last -aspirin 81 mg once a day HX LEEP-no concerns with previous -transvaginal sonograms HISTORY OF HERPES---plan for suppression at 36 weeks GBS BACTERIURIA-status posttreatment-test of cure at next visit-antibiotics in labor LIMITED PNC; Has not been present in this clinic for care since 14 weeks. Returned at 24 weeks. Coding Level of Care Code Acute Clinical Services Consultant for Bronwyn Garcia
[2022-10-04] MEDS: dextrose 5%-lactated ringers 1,000 ML 125 ML IV ×3 (00:57→17:33)
--- NOTE | 2022-10-04 02:36 | P.PN_ITS ---
FAMILY SERVICES ASSISTANT Subjective Subjective: Interval history: October 04, 2022, 022 Received 2 mg morphine sulfate States feeling better. Pain decreased Fetus reassuring Labor: Station: -2 Amniotic Membrane Status: Intact Monitor Mode: External Contraction Pattern: Irregular Vitals/I&O/Wt Last Vital Signs Temp 96.6 F L 10/03/22 22:59 Pulse 66 10/04/22 02:29 Resp 18 10/04/22 00:57 BP 102/55 10/04/22 02:29 O2 Del Method 10/03/22 23:20 Weight last 48 hrs Weight 167 lb Weight 167 lb Attestations Medical Necessity Statement*: patient with acute abdominal pain Coding Level of Care Code Acute Speech And Hearing Director for g Radha
[2022-10-04] MEDS: fentaNYL 50 mcg/mL INJ 2mL 25 MCG IVP ×2 (03:04→08:48)
[2022-10-04 06:50] LABS: Basophils % 0.3 %; Eosinophils # 0.1 10^3/uL (0.0-0.8); Eosinophils % 0.8 %; Hematocrit 32.3 % (37.0-47.0); Hemoglobin 10.5 g/dL (11.5-15.3); Lymphocytes # 2.7 10^3/uL (0.8-4.8); Lymphocytes % 27.4 %; Mean Corpuscular HGB Conc 32.5 g/dL (30.0-36.0); Mean Corpuscular Volume 92.3 fl (81-99); Mean Platelet Volume 11.4 fL (7.4-10.4); Monocytes # 0.8 10^3/uL (0.2-0.9); Monocytes % 8.1 %; Neutrophils # 6.01 10^3/uL (1.8-7.7); Neutrophils % 62.1 %; Nucleated Red Blood Cells % 0 %; Platelet Count 273 10^3/cmm (130-400); Red Cell Distribution Width 13.4 % (12.1-15.1); White Blood Count 9.7 10^3/uL (4.0-10.0)
[2022-10-04] MEDS: ampicillin 2,000 MG in sodium chloride 0.9% (plus) 50 ML 100 MG IV (06:57)
[2022-10-04] MEDS: miSOPROStol 100 mcg tablet 25 MCG VAGINAL (07:20)
[2022-10-04] MEDS: ampicillin 1,000 MG in sodium chloride 0.9% (plus) 50 ML 100 MG IV ×3 (11:57→19:46)
[2022-10-04] MEDS: oxytocin 30 UNIT/500 ML BAG IV (11:59)
[2022-10-04] MEDS: fentaNYL 50 mcg/mL INJ 2mL IVP ×3 (15:05→19:52)
--- NOTE | 2022-10-04 21:33 | P.PN_ITS ---
FLAME HARDENER Subjective Subjective: Interval history: October 04, 2022, 0650 States pain has returned Described as ?severe? Options of continue pain management with morphine / fentanyl ? Vs. labor induction due to obstructive uropathy / hydronephrosis causing severe pain Discussed with patient Risks of IOL explained, including risk of prematurity, although risk is low at 37-38 weeks;? along with risk of prolonged induction / increased risk of c- section Patient understands and wants to proceed with labor induction Plan give cytotec 25 ug intravaginal Labor: Station: -1 Amniotic Membrane Status: Ruptured Monitor Mode: External Contraction Pattern: Irregular Status: Category I Vitals/I&O/Wt Last Vital Signs Temp 97.3 F L 10/04/22 18:25 Pulse 78 10/04/22 21:31 Resp 16 10/04/22 19:52 BP 117/66 10/04/22 21:31 O2 Del Method 10/04/22 07:30 10/04/22 10/04/22 10/04/22 06:59 14:59 22:59 Intake Total 1049.551 / 7611.260 7231.451 / 2148.002 Balance 1049.551 / 9257.453 5929.451 / 2148.002 Weight last 48 hrs Weight 167 lb Weight 167 lb Data 10/04/22 06:35 Attestations Medical Necessity Statement*: patient with severe pain due to obstructive uropathy / hydronephrosis, plan start labor induction Coding Level of Care Code Acute Property Management Accountant for Bronwyn Garcia
--- NOTE | 2022-10-04 21:35 | PM.OBGYPN ---
ELEMENTARY SCHOOL ART TEACHER Subjective Subjective: Interval history: October 04, 2022, 1545 Fetus reassuring Pitocin at 7 mU Cx:? 2 cm / 75% / ballottable / -4 / posterior Labor: Station: -1 Amniotic Membrane Status: Ruptured Monitor Mode: External Contraction Pattern: Irregular Status: Category I Vitals/I&O/Wt Last Vital Signs Temp 97.3 F L 10/04/22 18:25 Pulse 78 10/04/22 21:31 Resp 16 10/04/22 19:52 BP 117/66 10/04/22 21:31 O2 Del Method 10/04/22 07:30 10/04/22 10/04/22 10/04/22 06:59 14:59 22:59 Intake Total 1049.551 / 4689.955 1174.451 / 2148.002 Balance 1049.551 / 5105.175 0662.451 / 2148.002 Weight last 48 hrs Weight 167 lb Weight 167 lb Data 10/04/22 06:35 Attestations Medical Necessity Statement*: patient undergoing labor induction Coding Level of Care Code Acute Wallpaper Embosser Helper for Bronwyn Garcia
--- NOTE | 2022-10-04 21:36 | P.PN_ITS ---
COMMUNITY PLACEMENT WORKER Subjective Subjective: Interval history: October 04, 2022, 193 Fetus reassuring Having moderately painful regular UCs Pitocin at 19 mU Cx:?? 3 cm / 75% / -2 / posterior AROM, clear fluid Labor: Station: -1 Amniotic Membrane Status: Ruptured Monitor Mode: External Contraction Pattern: Irregular Status: Category I Vitals/I&O/Wt Last Vital Signs Temp 97.3 F L 10/04/22 18:25 Pulse 78 10/04/22 21:31 Resp 16 10/04/22 19:52 BP 117/66 10/04/22 21:31 O2 Del Method 10/04/22 07:30 10/04/22 10/04/22 10/04/22 06:59 14:59 22:59 Intake Total 1049.551 / 7051.994 1064.451 / 2148.002 Balance 1049.551 / 0438.618 6316.451 / 2148.002 Weight last 48 hrs Weight 167 lb Weight 167 lb Data 10/04/22 06:35 Attestations Medical Necessity Statement*: patient undergoing labor induction Coding Level of Care Code Acute Mate First for Bronwyn Garcia
--- NOTE | 2022-10-04 21:37 | PM.OBGYPN ---
YOGA COORDINATOR Subjective Subjective: Interval history: October 04, 2022, 2109 DELIVERY NOTE , vigorous male Normal placenta and cord Cord blood obtained No episiotomy / lacerations EBL:? 300 cc No complications Labor: Station: -1 Amniotic Membrane Status: Ruptured Monitor Mode: External Contraction Pattern: Irregular Status: Category I Vitals/I&O/Wt Last Vital Signs Temp 97.3 F L 10/04/22 18:25 Pulse 78 10/04/22 21:31 Resp 16 10/04/22 19:52 BP 117/66 10/04/22 21:31 O2 Del Method 10/04/22 07:30 10/04/22 10/04/22 10/04/22 06:59 14:59 22:59 Intake Total 1049.551 / 9300.988 6757.451 / 2148.002 Balance 1049.551 / 8009.912 7529.451 / 2148.002 Weight last 48 hrs Weight 167 lb Weight 167 lb Data 10/04/22 06:35 Attestations Medical Necessity Statement*: patient s/p vaginal delivery Coding Level of Care Code Acute Production Assembler for Chg Radha
--- NOTE | 2022-10-04 21:38 | PM.DELIVERY ---
Delivery Note: Date of delivery: October 04, 2022 Pre-delivery diagnoses: 37 w 6 d obstructive uropathy / hydronephrosis severe pain labor induction Post-delivery diagnoses: same as above Procedure: labor induction vaginal delivery Delivering Physician: Damien Kitchen M.D. Estimated blood loss (mL): 300 Findings: vigorous male infant Pre-Delivery Course: complicated by right-sided hydronephrosis Delivery: vaginal delivery Post-Delivery Status: good History History History 8 Term 2 1 Miscarriages/Ectopic 4 Living Children 3 A&P Assessment and plan (1) Flank pain in patient: (2) Hydronephrosis due to obstruction of ureter: (3) : (4) H/O herpes genitalis: Plan care Coding Level of Care Code Acute Certified Family Mediator for [facility] Fwd Diagnoses Flank pain in patient O26.899; R10.9 Hydronephrosis due to obstruction of ureter N13.1 Z34.90 H/O herpes genitalis Z86.19
[2022-10-04] MEDS: ibuprofen 800 mg tablet PO (22:39)
[2022-10-05] VITALS (11 sets, daily range): BP systolic 89–111; BP diastolic 54–63; PULSE 55–78; RESP 16; TEMP 35.8–36.5
[2022-10-05] MEDS: lanolin oint 7 gm 1 APPLIC TOPICAL (03:26)
[2022-10-05] MEDS: benzocaine-menthol 78 gm Canister 1 SPRAY TOPICAL (03:27)
[2022-10-05] MEDS: prenatal vitamin Capsule 1 CAP PO (08:07)
[2022-10-05] MEDS: ibuprofen 800 mg tablet PO ×3 (08:07→21:38)
[2022-10-05] MEDS: ferrous sulfate EC 325 mg Tablet PO (08:07)
[2022-10-05] MEDS: docusate sodium 100 mg Capsule PO ×2 (08:07→21:38)
[2022-10-05 10:50] LABS: Hematocrit 30.8 % (37.0-47.0); Mean Corpuscular HGB Conc 32.5 g/dL (30.0-36.0); Mean Corpuscular Hemoglobin 30.2 pg (28.0-34.0); Mean Corpuscular Volume 93.1 fl (81-99); Mean Platelet Volume 11.8 fL (7.4-10.4); Platelet Count 253 10^3/cmm (130-400); Red Blood Count 3.31 10^6/uL (4.1-5.3); Red Cell Distribution Width 13.2 % (12.1-15.1); White Blood Count 8.9 10^3/uL (4.0-10.0)
[2022-10-05] MEDS: HYDROcodone-acetaminophen 5-325 mg Tablet PO ×2 (13:02→20:00)
[2022-10-06 05:59] VITALS: BP 106/60; PULSE 56
[2022-10-06] MEDS: ibuprofen 800 mg tablet PO (10:25)
[2022-10-06] MEDS: docusate sodium 100 mg Capsule PO (10:26)
[2022-10-06] MEDS: prenatal vitamin Capsule 1 CAP PO (10:26)
[2022-10-06 10:28] VITALS: BP 113/60; PULSE 77
--- NOTE | 2022-10-06 12:14 | P.PN_ITS ---
JOB TRAINING SUPERVISOR Subjective Subjective: Interval history: October 06, 2022, 1105 No c/o States right flank pain minimal No bleeding, pain Caring for infant and well Exam:?afebrile, VS? normal ?Abd:? soft, nontender ?Ext:? no edema A/P: PPD #2 Doing well Plan discharge home Precautions / instructions given Call / return if fever, chills, headache, nausea, vomiting, pain, bleeding, feelings of depression Labor: Station: -1 Amniotic Membrane Status: Ruptured Monitor Mode: External Contraction Pattern: Irregular Status: Category I Vitals/I&O/Wt Last Vital Signs Temp 96.9 F L 10/05/22 21:40 Pulse 77 10/06/22 10:28 Resp 16 10/05/22 21:40 BP 113/60 10/06/22 10:28 Pulse Ox 100 10/04/22 22:30 O2 Del Method 10/05/22 21:40 Data 10/05/22 10:30 Attestations Medical Necessity Statement*: care Coding Level of Care Code Acute Management Coordinator for Chg Radha
--- NOTE | 2022-10-06 12:19 | PM.OBGYDC ---
Discharge Providers VETERINARY VIRUS SERUM INSPECTOR Date of Admission: 10/04/22 06:15 Date of Discharge: 10/06/22 Attending Provider at Admission: Damien Kitchen MD Attending Provider at Discharge: Damien Kitchen MD Primary VETERINARY VIRUS SERUM INSPECTOR: Eitan Estevez M.D. Primary Care Provider: Xiang Lou MD Diagnoses at Discharge Discharge Diagnosis (1) Flank pain in patient: Status: Acute (2) Hydronephrosis due to obstruction of ureter: Status: Acute (3) : Status: Acute (4) H/O herpes genitalis: Status: Acute Permanent problem details: -She has a history of genital herpes however denies any outbreaks since 2008. Reason for Visit Reason for Visit: Abdominal pain Hospital Course Hospital Course s/p induced vaginal delivery Information Peripartum Data: Delivery Method: Vaginal History History History 8 Term 2 1 Miscarriages/Ectopic 4 Living Children 3 Discharge Data Studies Completed and Pending Laboratory Results WBC 8.9 10^3/uL (4.0-10.0) 10/05/22 10:30 RBC 3.31 10^6/uL (4.1-5.3) L 10/05/22 10:30 Hgb 10.0 g/dL (11.5-15.3) L 10/05/22 10:30 Hct 30.8 % (37.0-47.0) L 10/05/22 10:30 MCV 93.1 fl (81-99) 10/05/22 10:30 MCH 30.2 pg (28.0-34.0) 10/05/22 10:30 MCHC 32.5 g/dL (30.0-36.0) 10/05/22 10:30 RDW 13.2 % (12.1-15.1) 10/05/22 10:30 Plt Count 253 10^3/cmm (130-400) 10/05/22 10:30 MPV 11.8 fL (7.4-10.4) H 10/05/22 10:30 Neut % (Auto) 62.1 % 10/04/22 06:35 Lymph % (Auto) 27.4 % 10/04/22 06:35 [place] % (Auto) 8.1 % 10/04/22 06:35 Eos % (Auto) 0.8 % 10/04/22 06:35 Baso % (Auto) 0.3 % 10/04/22 06:35 Neut # (Auto) 6.01 10^3/uL (1.8-7.7) 10/04/22 06:35 Lymph # (Auto) 2.7 10^3/uL (0.8-4.8) 10/04/22 06:35 [place] # (Auto) 0.8 10^3/uL (0.2-0.9) 10/04/22 06:35 Eos # (Auto) 0.1 10^3/uL (0.0-0.8) 10/04/22 06:35 Baso # (Auto) 0.0 10^3/uL (0.0-0.1) 10/04/22 06:35 Nucleated RBC % (auto) 0 % 10/04/22 06:35 Nucleated RBCs # 0.0 /100WBC 10/04/22 06:35 POC Glucose 80 mg/dL (70-110) 10/04/22 00:26 Urine Color Yellow (Yellow) 10/03/22 23:21 Urine Appearance Clear (CLEAR) 10/03/22 23:21 Urine pH 8 (5-7) H 10/03/22 23:21 Ur Specific [place] 1.010 (1.005-1.030) 10/03/22 23:21 Urine Protein Neg (Negative) 10/03/22 23:21 Urine Glucose (UA) 1+ (Normal) H 10/03/22 23:21 Urine Ketones 1+ (Negative) H 10/03/22 23:21 Urine Blood Neg (Negative) 10/03/22 23:21 Urine Nitrate Negative (Negative) 10/03/22 23:21 Urine Bilirubin Neg (Negative) 10/03/22 23:21 Prot Sulfosalicylic Acd Negative (Negative) 10/03/22 23:21 Urine Urobilinogen Neg mg/dL (Negative) 10/03/22 23:21 Ur Leukocyte Esterase Negative (Negative) 10/03/22 23:21 Urine RBC 0-4 /hpf (0-2) H 10/03/22 23:21 Urine WBC 0-4 /hpf (0-5) H 10/03/22 23:21 Ur Squamous Epith Cells 10-15 /hpf (0-5) H 10/03/22 23:21 Amorphous Sediment Not Reportable 10/03/22 23:21 Urine Bacteria None /hpf (NONE) 10/03/22 23:21 Procedures Performed labor induction vaginal delivery Vitals Last Vital Signs Temp 96.9 F L 10/05/22 21:40 Pulse 77 10/06/22 10:28 Resp 16 10/05/22 21:40 BP 113/60 10/06/22 10:28 Pulse Ox 100 10/04/22 22:30 O2 Del Method 10/05/22 21:40 Discharge Plan Discharge Patient Disposition: Home Condition: Stable Prescriptions: Continued Gummies 400 mcg-35 mg- 25 mg-5 mg tablet,chewable 1 tab PO DAILY bupropion HCl [Wellbutrin XL] 300 mg tablet extended release 24 hr 300 mg PO QAM Qty: 30 2RF sertraline [Zoloft] 100 mg tablet 200 mg PO DAILY Qty: 60 2RF Tylenol 1,000 mg PO PRN PRN (Reason: Mild Pain (Scale Score 1-4)) Discontinued valacyclovir [Valtrex] 500 mg tablet 500 mg PO BID Qty: 60 1RF Baby Aspirin 81 mg PO DAILY oxycodone-acetaminophen [Percocet] 10-325 mg tablet 1 tab PO Q6H Qty: 20 0RF nitrofurantoin monohyd/m-cryst [Macrobid] 100 mg capsule 100 mg PO ONCE 10 Days Qty: 10 0RF Rx Instructions: must administer with a meal/food Discharge Orders: Discharge Order (Routine); Ordered 10/06/22 Ordered By: Damien Kitchen Referrals: Eitan Estevez MD [Physician] - 11/17/22 1:30 pm Discharge Diet: Usual diet Discharge Activity: Increase activity as tolerated Patient Instructions: Preeclampsia and Eclampsia After Delivery (GEN), OB Discharge Report, OB Food/Drug Interaction Guide, OB Care at Home, Opioid Safety, OB Proud Parent Packet, OB Vaginal Deliveries - [facility] Discharge Attestations VETERINARY VIRUS SERUM INSPECTOR Time Spent in Discharge Care*: greater than 30 min Coding Level of Care Code Acute Hay Stacker Operator for Chg Fwd Diagnoses Flank pain in patient O26.899; R10.9 Hydronephrosis due to obstruction of ureter N13.1 Z34.90 H/O herpes genitalis Z86.19
[2022-10-06 12:30] VITALS: BP 107/63; PULSE 65; TEMP 36.4
[2022-10-06 12:39] VITALS: RESP 16
[2022-10-06 13:36] VITALS: RESP 16
== END 2022-10-06 13:30 | disposition home or self-care (01) | DRG 806 ==
LOC: OPOB 10-06 13:25 → OBGYN 10-06 13:25
PROVIDERS: Admitting Provider Obstetrics & Gynecology; PCP Family Medicine; Visit Provider Obstetrics & Gynecology
DX: O99.892 Other specified diseases and conditions complicating childbirth (principal); F33.2 Major depressive disorder, recurrent severe without psychotic features; Z37.0 Single live birth; N13.30 Unspecified hydronephrosis; O99.344 Other mental disorders complicating childbirth; Z3A.37 37 weeks gestation of pregnancy; F41.1 Generalized anxiety disorder; F42.9 Obsessive-compulsive disorder, unspecified; Z87.891 Personal history of nicotine dependence; Z86.718 Personal history of other venous thrombosis and embolism
CPT/HCPCS: 12345; 36415; 36416; 59025; 59409; 81001; 82962; 85025; 85027; 96374; 96376; 99211; J0290; J2270; J2590; J3010; J7121

== ENCOUNTER 2023-06-01 23:01 | Emergency (ER) | payer OTHER, SELFPAY ==
[2023-06-01 23:06] VITALS: BP 133/82; PULSE 92; RESP 16; TEMP 36.7; O2SAT 97; BMI 23.1
--- NOTE | 2023-06-01 23:07 | W.ED.ABDPA2 ---
HPI - Abdominal Pain General: Chief Complaint: Fever Stated Complaint: N\Fever Time Seen by Provider: 06/01/23 23:02 History of Present Illness: 33-year-old female comes in today with complaints of nausea and vomiting and fever and feeling of malaise for 1 week. Patient has not started feeling better and came into the ER for evaluation. Patient has a history of sepsis, vertebral artery dissection, delivery in the last 6 months, and a recent tick bite. No rashes been reported. Patient appears mildly unwell. Patient appears nontoxic. Patient appears in no pain. Associated Symptoms: Reports fever(s), nausea and vomiting Review of Systems General: Reports: 10 or more systems reviewed and unremarkable except in HPI and below Const: Reports: fever(s) and malaise GI: Reports: nausea and vomiting PFSH ED PFSH: Medical History Carcinoma in situ of endocervix -LEEP performed on 07/08/2018 with positive endocervical margin for ERIC-3. Generalized anxiety disorder H/O herpes genitalis -She has a history of genital herpes however denies any outbreaks since 2008. Major depressive disorder, recurrent severe without psychotic features Managed with medication since 2016 She is now managed by Dr. Mendez with the wellbutrin and zoloft. No pertinent past medical history Denies diabetes, asthma, seizures, DVT/PE PMD: Dr. 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 Surgical History History of dilation and curettage x 2 for SAB S/P LEEP LEEP procedure done on 07/08/2018 for ERIC-2-ERIC-3. Pathology showed anterior lip with mild [id number] with negative margins. Posterior cervical lips with severe [id number] with severe dysplasia at the endocervical margin and mild dysplasia at the exocervical margin. -Post-LEEP endocervical curettage shows benign endocervical mucosa without malignancy [place] teeth extracted Family History Mother Hypertension Thyroid disease Hypercholesteremia Grandmother Hypertension Maternal Father Hypercholesteremia Denies family history of Cervical cancer Colon cancer Ovarian cancer Breast cancer Uterine cancer Stroke Social History Smoking and tobacco status: never smoked Substance/Drug Use: never Female Reproductive History: Spontaneous abortions: No Physical Exam Const: COMMON NORMALS: alert HENMT: COMMON NORMALS: normocephalic HEAD & SCALP: normocephalic MOUTH: Normal oral and palatal mucosa present THROAT: posterior oropharynx abnormal cobblestoning Neck/C-Spine: COMMON NORMALS: full ROM, no lymphadenopathy and no meningeal signs Resp: COMMON NORMALS: normal respiratory effort and clear to auscultation bilaterally AUSCULTATION: clear to auscultation bilaterally Cardio: COMMON NORMALS: regular rate and regular rhythm RATE: regular rate RHYTHM: regular rhythm GI: COMMON NORMALS: Soft to palpation and non-tender PALPATION: Yes Soft to palpation : COMMON NORMALS: Yes no CVA tenderness BLADDER/KIDNEY EXAM: Yes no CVA tenderness Back/Pelvis: COMMON NORMALS: no CVA tenderness Extremity: COMMON NORMALS: normal to inspection Neuro: SENSORIUM/ORIENTATION: Yes alert MENINGEAL SIGNS: Yes no meningeal signs Skin: COMMON NORMALS: turgor normal GENERAL SKIN EXAM: turgor normal Course Vital Signs: Vital signs: Vital Signs Temperature 98.1 F 06/01/23 23:06 Pulse Rate 92 06/01/23 23:06 Respiratory Rate 16 06/01/23 23:06 Blood Pressure 133/82 06/01/23 23:06 Pulse Oximetry 97 06/01/23 23:06 Oxygen Delivery Me thod Room Air 06/01/23 23:06 MDM - Abdominal Pain Medical Decision Making 33-year-old female comes in today for complaints of headache, nausea vomiting, and fever on and off for about 1 week. Patient appears nontoxic. Respirations are even lungs are clear to auscultation. Skin is warm and dry. Vital signs are normal. Differential diagnosis includes but not limited to upper respiratory infection, viral syndrome, tick fever, dehydration. CBC was unremarkable. CMP noted a potassium of 3.2, glucose 120, sodium 139, lactate 2.7. CRP and sed rate were normal. Urinalysis was clear. Strep test, influenza, and COVID 19 test were negative. I suspect patient has a viral syndrome. Due to the recent tick bite we will go ahead and cover with doxycycline 100 mg twice a day for the next 10 days until patient gets the tick panel results back. Patient was concerned about lupus and an JOSE screening was sent to lab for further evaluation. Patient will follow-up with primary care for results return to the ER for worsening symptoms such as high fever, severe shortness of breath, or chest pain. Lab Data 06/01/23 23:25 06/01/23: Labs/Radiology: Laboratory Results WBC 7.3 10^3/uL (4.0-10.0) 06/01/23: RBC 4.43 10^6/uL (4.1-5.3) 06/01/23: Hgb 13.4 g/dL (11.5-15.3) 06/01/23: Hct 40.4 % (37.0-47.0) 06/01/23: MCV 91.2 fl (81-99) 06/01/23: MCH 30.2 pg (28.0-34.0) 06/01/23: MCHC 33.2 g/dL (30.0-36.0) 06/01/23: RDW 12.7 % (12.1-15.1) 06/01/23: Plt Count 330 10^3/cmm (130-400) 06/01/23: MPV 11.1 fL (7.4-10.4) H 06/01/23: Neut % (Auto) 54.9 % 06/01/23: Lymph % (Auto) 36.2 % 06/01/23: [place] % (Auto) 6.8 % 06/01/23: Eos % (Auto) 1.6 % 06/01/23: Baso % (Auto) 0.4 % 06/01/23 Neut # (Auto) 4.01 10^3/uL (1.8-7.7) 06/01/23: Lymph # (Auto) 2.7 10^3/uL (0.8-4.8) 06/01/23 23:25 [place] # (Auto) 0.5 10^3/uL (0.2-0.9) 06/01/23 23:25 Eos # (Auto) 0.1 10^3/uL (0.0-0.8) 06/01/23 23:25 Baso # (Auto) 0.0 10^3/uL (0.0-0.1) 06/01/23 23:25 Nucleated RBC % (auto) 0 % 06/01/23 23:25 Nucleated RBCs # 0.0 /100WBC 06/01/23 23:25 ESR 8 mm/hr (0-15) 06/01/23 23:25 Sodium 139 mmol/L (136-145) 06/01/23 23:25 Potassium 3.2 mmol/L (3.5-5.1) L 06/01/23 23:25 Chloride 103 mmol/L (98-107) 06/01/23 23:25 Carbon Dioxide 23 mmol/L (22-29) 06/01/23 23:25 Anion Gap 16.2 (5-19) 06/01/23 23:25 BUN 9 mg/dL (6-20) 06/01/23 23:25 Creatinine 0.8 mg/dL (0.5-0.9) 06/01/23 23:25 GFR Calculation 81.6 mL/min (90-130) L 06/01/23 23:25 Glucose 120 mg/dL (65-115) H 06/01/23 23:25 Calculated Osmolality 288 mOsm/kg (285-295) 06/01/23 23:25 Lactic Acid 2.7 mmol/L (0.5-2.2) H 06/01/23 23:25 Calcium 9.0 mg/dL (8.5-10.5) 06/01/23 23:25 Total Bilirubin 0.2 mg/dL (0.15-1.2) 06/01/23 23:25 AST 15 U/L (0-32) 06/01/23 23:25 ALT 11 U/L (0-33) 06/01/23 23:25 Alkaline Phosphatase 88 U/L (35-105) 06/01/23 23:25 C-Reactive Protein 3.0 mg/L (0.0-4.9) 06/01/23 23:25 Total Protein 7.3 g/dL (6.6-8.7) 06/01/23 23:25 Albumin 4.4 g/dL (3.5-5.2) 06/01/23 23:25 Globulin 2.9 g/dL (1.3-4.6) 06/01/23 23:25 HCG, Qual Negative (Negative) 06/01/23 23:25 Urine Color Light yellow (Yellow) 06/02/23 00:12 Urine Appearance Clear (CLEAR) 06/02/23 00:12 Urine pH 5 (5-7) 06/02/23 00:12 Ur Specific [place] 1.010 (1.005-1.030) 06/02/23 00:12 Urine Protein Neg (Negative) 06/02/23 00:12 Urine Glucose (UA) Norm (Normal) 06/02/23 00:12 Urine Ketones Negative (Negative) 06/02/23 00:12 Urine Blood Neg (Negative) 06/02/23 00:12 Urine Nitrate Negative (Negative) 06/02/23 00:12 Urine Bilirubin Neg (Negative) 06/02/23 00:12 Urine Urobilinogen Neg mg/dL (Negative) 06/02/23 00:12 Ur Leukocyte Esterase Negative (Negative) 06/02/23 00:12 Influenza Type A Ag negative (Negative) 06/01/23 23:50 Influenza Type B Ag negative (Negative) 06/01/23 23:50 SARS-CoV-2 Ag (Rapid) negative (Negative) 06/01/23 23:50 Group A Strep Rapid Negative (Negative) 06/01/23 23:50 Discharge Plan Discharge Patient Disposition: Home Clinical Impression: Viral infection, Dehydration Tick bite Qualifiers: Encounter type: initial encounter Site of tick bite: unspecified site Qualified Code(s): W57.XXXA - Bitten or stung by nonvenomous insect and other nonvenomous arthropods, initial encounter Condition: Stable Prescriptions: New doxycycline monohydrate 100 mg capsule 100 mg PO BID 10 Days Qty: 20 0RF No Action Mirena 20 mcg/24 hours (8 yrs) 52 mg intrauterine device 1 device intrauterine ONCE Qty: 1 0RF Cetacaine 2 %-2 %-14 % (200 mg/sec) aerosol,spray 200 mg topical ONCE Qty: 1 0RF povidone-iodine [Betadine Swabsticks] 10 % swab 1 applic topical ONCE Qty: 1 0RF Gummies 400 mcg-35 mg- 25 mg-5 mg tablet,chewable 1 tab PO DAILY bupropion HCl [Wellbutrin XL] 300 mg tablet extended release 24 hr 300 mg PO QAM Qty: 30 2RF sertraline [Zoloft] 100 mg tablet 200 mg PO DAILY Qty: 60 2RF Tylenol 1,000 mg PO PRN PRN (Reason: Mild Pain (Scale Score 1-4)) Discharge Orders: Discharge ED (Routine); Ordered 06/02/23 Ordered By: Raúl Rueda Referrals: Xiang Lou MD [Primary Care Provider] - Discharge Diet: Usual diet Discharge Activity: Increase activity as tolerated Patient Instructions: Viral Syndrome (ED) Activity Restrictions/Additional Instructions: Drink plenty of water and fluids. Use acetaminophen and ibuprofen for pain and fever. Take doxycycline 100 mg twice a day due to recent insect bite until rule out by tick panel. Follow-up with primary care regarding outstanding tick panel and JOSE screen. Return to ER for worsening symptoms such as inability to hold fluids down, severe chest pain, or shortness of breath. Coding Level of Care Code ED Exhaust And Muffler Repairer for Bronwyn Garcia
[2023-06-01 23:37] LABS: Basophils % 0.4 %; Eosinophils # 0.1 10^3/uL (0.0-0.8); Eosinophils % 1.6 %; Hematocrit 40.4 % (37.0-47.0); Hemoglobin 13.4 g/dL (11.5-15.3); Lymphocytes # 2.7 10^3/uL (0.8-4.8); Lymphocytes % 36.2 %; Mean Corpuscular HGB Conc 33.2 g/dL (30.0-36.0); Mean Corpuscular Hemoglobin 30.2 pg (28.0-34.0); Mean Corpuscular Volume 91.2 fl (81-99); Mean Platelet Volume 11.1 fL (7.4-10.4); Monocytes # 0.5 10^3/uL (0.2-0.9); Monocytes % 6.8 %; Neutrophils # 4.01 10^3/uL (1.8-7.7); Neutrophils % 54.9 %; Nucleated Red Blood Cells % 0 %; Platelet Count 330 10^3/cmm (130-400); Red Blood Count 4.43 10^6/uL (4.1-5.3); Red Cell Distribution Width 12.7 % (12.1-15.1); White Blood Count 7.3 10^3/uL (4.0-10.0)
[2023-06-01] MEDS: sodium chloride 0.9% 1,000 ML 999 ML IV (23:37)
[2023-06-01] MEDS: metoclopramide 5 mg/mL SDV 2 mL 10 MG IVP (23:37)
[2023-06-01] MEDS: dexamethasone 10 mg/mL INJ 6 MG IVP (23:37)
[2023-06-01] MEDS: ketorolac 30 mg/mL INJ 15 MG IVP (23:37)
[2023-06-01 23:49] LABS: HCG, Serum Qual Negative (Negative)
[2023-06-01 23:54] LABS: Erythrocyte Sedimentation Rate 8 mm/hr (0-15)
[2023-06-02 00:07] LABS: Alanine Aminotransferase 11 U/L (0-33); Albumin Level 4.4 g/dL (3.5-5.2); Alkaline Phosphatase 88 U/L (35-105); Anion Gap 16.2 (5-19); Aspartate Amino Transferase 15 U/L (0-32); Blood Urea Nitrogen 9 mg/dL (6-20); Carbon Dioxide 23 mmol/L (22-29); Chloride 103 mmol/L (98-107); Globulin 2.9 g/dL (1.3-4.6); Glomerular Filtration Rate 81.6 mL/min (90-130); Glucose 120 mg/dL (65-115); Lactic Sepsis W/Reflex 2.7 mmol/L (0.5-2.2); Osmolality Calculated 288 mOsm/kg (285-295); Potassium 3.2 mmol/L (3.5-5.1); Sodium 139 mmol/L (136-145); Total Bilirubin 0.2 mg/dL (0.15-1.2); Total Protein 7.3 g/dL (6.6-8.7)
[2023-06-02 00:11] LABS: Rapid Strep A Test Negative (Negative)
[2023-06-02 00:17] LABS: SARS Covid-2 Antigen negative (Negative)
[2023-06-02 00:18] LABS: Influenza A by IFA negative (Negative); Influenza B by IFA negative (Negative)
[2023-06-02 00:20] LABS: Add Urine Microscopic? NO; Charge for UA Resulting for Rev
[2023-06-02 00:24] LABS: Bilirubin Urine Neg (Negative); Blood Urine Neg (Negative); Glucose Urine UA Norm (Normal); Ketones Urine Negative (Negative); Leukocyte Esterase Urine Negative (Negative); Nitrate Urine Negative (Negative); Protein Urine Neg (Negative); Urine Appearance Clear (CLEAR); Urine Color Light yellow (Yellow); Urobilinogen Urine Neg (Negative); pH Urine 5 (5-7)
[2023-06-02] MEDS: doxycycline 100 mg Tablet PO (00:38)
[2023-06-02] MEDS: sodium chloride 0.9% 500 ML 999 ML IV (00:40)
[2023-06-02 01:20] LABS: Reflex Lactate Order REFLEX LACTIC ORDERD
[2023-06-02 01:36] VITALS: BP 133/82; PULSE 92; RESP 16; TEMP 36.7; O2SAT 97
[2023-06-03 14:01] LABS: Lyme AB Screen <0.90 index
[2023-06-03 17:14] LABS: Anti-Nuclear Antibody Screen NEGATIVE (NEGATIVE)
[2023-06-08 17:22] LABS: RMSF IGG NOT DETECTED; RMSF IGM NOT DETECTED
[2023-06-09 17:20] LABS: E. Chaffeensis AB IGG <1:64; E. Chaffeensis AB IGM <1:20
== END 2023-06-02 01:38 | disposition home or self-care (01) ==
PROVIDERS: Emergency Provider Nurse Practitioner Family; PCP Family Medicine
DX: B34.9 Viral infection, unspecified (principal); E86.0 Dehydration; Z20.822 Contact with and (suspected) exposure to COVID-19; W57.XXXA Bitten or stung by nonvenomous insect and other nonvenomous arthropods, initial encounter; Z85.41 Personal history of malignant neoplasm of cervix uteri
CPT/HCPCS: 80053; 81003; 83605; 84703; 85025; 85651; 86038; 86140; 86618; 86666; 86757; 87081; 87426; 87804; 87880; 96361; 96374; 96375; 99284; J1100; J1885; J2765; J7030

== ENCOUNTER → 2023-06-04 12:13 | Outpatient (BNVA) | payer OTHER, SELFPAY | PROVIDERS: PCP Family Medicine; Visit Provider Registered Nurse | DX: E86.0 Dehydration (principal); F33.2 Major depressive disorder, recurrent severe without psychotic features | CPT/HCPCS: 80053; 84443 ==

== ENCOUNTER 2023-06-05 19:12 | Emergency (ER) | payer OTHER, SELFPAY ==
[2023-06-05 19:51] VITALS: BP 135/86; PULSE 119; RESP 18; TEMP 37.1; O2SAT 98; BMI 22.3
[2023-06-05 19:59] LABS: Add Urine Microscopic? NO; Charge for UA Resulting for Rev
[2023-06-05 20:01] LABS: Specific Gravity, Urine 1.005 (1.005-1.030); Urine Appearance Clear (CLEAR); Urine Color Colorless (Yellow); pH Urine 7 (5-7)
[2023-06-05 20:02] LABS: Bilirubin Urine Neg (Negative); Blood Urine Neg (Negative); Glucose Urine UA Norm (Normal); Ketones Urine Negative (Negative); Leukocyte Esterase Urine Negative (Negative); Nitrate Urine Negative (Negative); Protein Urine Neg (Negative); Urobilinogen Urine Norm (Negative)
--- NOTE | 2023-06-05 20:02 | CTR_ITS ---
PROCEDURE INFORMATION: Exam: CT Head Without Contrast Exam date and time: 06/05/2023 8:15 PM Age: 33 years old Clinical indication: Pain; Headache; Patient HX: Left sided WILLAMS with n/v. TECHNIQUE: Imaging protocol: Computed tomography of the head without contrast. Radiation optimization: All CT scans at this facility use at least one of these dose optimization techniques: automated exposure control; mA and/or kV adjustment per patient size (includes targeted exams where dose is matched to clinical indication); or iterative reconstruction. REPORTING DATA: Count of CT and Cardiac NM exams in prior 12 months: This patient has received 0 known CTs and 0 known cardiac nuclear medicine studies in the 12 months prior to the current study. COMPARISON: MR head wo con* [id number] 10/28/2021 9:18 PM RADIATION DOSE METRICS: Total DLP (mGy-cm): 1047.98 FINDINGS: Brain: Normal. No hemorrhage. Unremarkable white matter. No mass effect. Cerebral ventricles: No ventriculomegaly. Paranasal sinuses: Visualized sinuses are unremarkable. No fluid levels. Mastoid air cells: Visualized mastoid air cells are well aerated. Bones/joints: Unremarkable. No acute fracture. Soft tissues: Unremarkable. CT/CT head wo con* [id number] IMPRESSION: No acute intracranial abnormality.
[2023-06-05 20:17] LABS: Basophils % 0.3 %; Eosinophils # 0.1 10^3/uL (0.0-0.8); Eosinophils % 1.9 %; Hematocrit 41.7 % (37.0-47.0); Hemoglobin 13.9 g/dL (11.5-15.3); Lymphocytes % 31.6 %; Mean Corpuscular HGB Conc 33.3 g/dL (30.0-36.0); Mean Corpuscular Hemoglobin 30.3 pg (28.0-34.0); Mean Platelet Volume 10.9 fL (7.4-10.4); Monocytes # 0.5 10^3/uL (0.2-0.9); Monocytes % 8.5 %; Neutrophils % 57.5 %; Nucleated Red Blood Cells % 0 %; Platelet Count 323 10^3/cmm (130-400); Red Blood Count 4.58 10^6/uL (4.1-5.3); Red Cell Distribution Width 12.8 % (12.1-15.1); White Blood Count 6.3 10^3/uL (4.0-10.0)
--- NOTE | 2023-06-05 20:29 | W.ED.GENADLT ---
HPI - General Adult General: Chief complaint: General Medical Stated complaint: headache, nausiated Source: patient Mode of arrival: ambulatory Limitations: no limitations History of Present Illness: 33-year-old female states over the last week she had body aches fevers chills she states she is had some epigastric abdominal pain along with headaches she has a history of vertebral artery aneurysm she had history of headaches as well. She is seen here in by her PCP with normal work-up states she still does not can feel well. Associated symptoms: Reports headache(s) and malaise; Deny chest pain, dyspnea, nausea, rash or vomiting Review of Systems Const: Reports: fever(s), body aches and malaise; Denies: chills or change in appetite Eyes: Denies: blurry vision or eye discomfort ENMT: Denies: throat pain or dental pain Card: Denies: chest pain Resp: Denies: dyspnea GI: Denies: abdominal pain, nausea, vomiting or diarrhea Musc: Denies: neck pain or back pain Skin/Breast: Denies: rash Neuro: Reports: headache(s) PFSH ED PFSH: Medical History Carcinoma in situ of endocervix -LEEP performed on 07/08/2018 with positive endocervical margin for ERIC-3. Flank pain in patient Generalized anxiety disorder H/O herpes genitalis -She has a history of genital herpes however denies any outbreaks since 2008. 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 Mendez with the wellbutrin and zoloft. No pertinent past medical history Denies diabetes, asthma, seizures, DVT/PE PMD: Dr. 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 Surgical History History of dilation and curettage x 2 for SAB S/P LEEP LEEP procedure done on 07/08/2018 for ERIC-2-ERIC-3. Pathology showed anterior lip with mild [id number] with negative margins. Posterior cervical lips with severe [id number] with severe dysplasia at the endocervical margin and mild dysplasia at the exocervical margin. -Post-LEEP endocervical curettage shows benign endocervical mucosa without malignancy [place] teeth extracted Family History Mother Hypertension Thyroid disease Hypercholesteremia Grandmother Hypertension Maternal Father Hypercholesteremia Denies family history of Cervical cancer Colon cancer Ovarian cancer Breast cancer Uterine cancer Stroke Social History Smoking and tobacco status: never smoked Substance/Drug Use: never Female Reproductive History: Spontaneous abortions: No Physical Exam Const: COMMON NORMALS: no acute distress, patient oriented x3 and healthy appearing HENMT: COMMON NORMALS: normocephalic and atraumatic HEAD & SCALP: normocephalic and atraumatic Eye: COMMON NORMALS: conjunctivae normal CONJUNCTIVA: Yes conjunctivae normal Neck/C-Spine: COMMON NORMALS: full ROM, supple and no meningeal signs Chest: COMMONS NORMALS: normal inspection of the chest and normal palpation of entire chest wall Resp: COMMON NORMALS: normal respiratory effort, No retractions, No use of accessory muscles and clear to auscultation bilaterally AUSCULTATION: clear to auscultation bilaterally Cardio: COMMON NORMALS: regular rate, regular rhythm and No murmurs present (Cardio) RATE: regular rate RHYTHM: regular rhythm GI: COMMON NORMALS: Normal to inspection, nondistended, normoactive bowel sounds present, Soft to palpation, non-tender and no masses PALPATION: Yes Soft to palpation Extremity: COMMON NORMALS: normal to inspection and full ROM Neuro: COMMON NORMALS: patient oriented x3, moves all extremities and no focal motor deficits MENINGEAL SIGNS: Yes no meningeal signs Psych: COMMON NORMALS: mental status grossly normal, Normal thought process present and cooperative THOUGHT PROCESS: Normal thought process present Skin: COMMON NORMALS: no rashes or lesions noted and no wounds GENERAL SKIN EXAM: no rashes or lesions noted Course Vital Signs: Vital signs: Vital Signs Temperature 98.7 F 06/05/23 19:51 Pulse Rate 88 06/05/23 22:18 Respiratory Rate 18 06/05/23 22:18 Blood Pressure 112/64 06/05/23 22:18 Pulse Oximetry 98 06/05/23 22:18 Oxygen Delivery Me thod Room Air 06/05/23 19:51 MDM - General Adult Medical Decision Making Patient presents with a headache CT CTA are both normal her inflammatory markers are normal she has no signs of meningitis patient stable for discharge she is to follow-up with PCP and return if worsening she understands agrees to plan. Medical Records I reviewed the patient's medical records. Lab Data I reviewed the patient's lab results. 06/05/23 20:10 06/05/23 20:[address] 06/05/23 20:02 IMPRESSION: No acute intracranial abnormality. Head/Neck CTA 06/05/23 20:58 IMPRESSION: No large vessel stenosis or occlusion. IMPRESSION: No stenosis or occlusion. REFERENCES: NASCET CRITERIA. The degree of stenosis in the cervical segment of the internal carotid artery is based on NASCET criteria. Normal is no stenosis. Mild is less than 50% stenosis. Moderate is 50-69% stenosis. Severe is 70% to 99% stenosis. Total occlusion is no detectable patent lumen. Laboratory Results WBC 6.3 10^3/uL (4.0-10.0) 06/05/23 20:10 RBC 4.58 10^6/uL (4.1-5.3) 06/05/23 20:10 Hgb 13.9 g/dL (11.5-15.3) 06/05/23 20:10 Hct 41.7 % (37.0-47.0) 06/05/23 20:10 MCV 91.0 fl (81-99) 06/05/23 20:10 MCH 30.3 pg (28.0-34.0) 06/05/23 20:10 MCHC 33.3 g/dL (30.0-36.0) 06/05/23 20:10 RDW 12.8 % (12.1-15.1) 06/05/23 20:10 Plt Count 323 10^3/cmm (130-400) 06/05/23 20:10 MPV 10.9 fL (7.4-10.4) H 06/05/23 20:10 Neut % (Auto) 57.5 % 06/05/23 20:10 Lymph % (Auto) 31.6 % 06/05/23 20:10 Bartholomew % (Auto) 8.5 % 06/05/23 20:10 Eos % (Auto) 1.9 % 06/05/23 20:10 Baso % (Auto) 0.3 % 06/05/23 20:10 Neut # (Auto) 3.60 10^3/uL (1.8-7.7) 06/05/23 20:10 Lymph # (Auto) 2.0 10^3/uL (0.8-4.8) 06/05/23 20:10 Bartholomew # (Auto) 0.5 10^3/uL (0.2-0.9) 06/05/23 20:10 Eos # (Auto) 0.1 10^3/uL (0.0-0.8) 06/05/23 20:10 Baso # (Auto) 0.0 10^3/uL (0.0-0.1) 06/05/23 20:10 Nucleated RBC % (auto) 0 % 06/05/23 20:10 Nucleated RBCs # 0.0 /100WBC 06/05/23 20:10 ESR 6 mm/hr (0-15) 06/05/23 20:10 Sodium 139 mmol/L (136-145) 06/05/23 20:10 Potassium 4.2 mmol/L (3.5-5.1) 06/05/23 20:10 Chloride 104 mmol/L (98-107) 06/05/23 20:10 Carbon Dioxide 26 mmol/L (22-29) 06/05/23 20:10 Anion Gap 13.2 (5-19) 06/05/23 20:10 BUN 5 mg/dL (6-20) L 06/05/23 20:10 Creatinine 0.8 mg/dL (0.5-0.9) 06/05/23 20:10 GFR Calculation 81.6 mL/min (90-130) L 06/05/23 20:10 Glucose 95 mg/dL (65-115) 06/05/23 20:10 Calculated Osmolality 285 mOsm/kg (285-295) 06/05/23 20:10 Calcium 8.8 mg/dL (8.5-10.5) 06/05/23 20:10 Total Bilirubin 0.2 mg/dL (0.15-1.2) 06/05/23 20:10 AST 17 U/L (0-32) 06/05/23 20:10 ALT 6 U/L (0-33) 06/05/23 20:10 Alkaline Phosphatase 71 U/L (35-105) 06/05/23 20:10 C-Reactive Protein 3.0 mg/L (0.0-4.9) 06/05/23 20:10 Total Protein 6.9 g/dL (6.6-8.7) 06/05/23 20:10 Albumin 4.3 g/dL (3.5-5.2) 06/05/23 20:10 Globulin 2.6 g/dL (1.3-4.6) 06/05/23 20:10 Urine Color Colorless (Yellow) 06/05/23 19:51 Urine Appearance Clear (CLEAR) 06/05/23 19:51 Urine pH 7 (5-7) 06/05/23 19:51 Ur Specific [place] 1.005 (1.005-1.030) 06/05/23 19:51 Urine Protein Neg (Negative) 06/05/23 19:51 Urine Glucose (UA) Norm (Normal) 06/05/23 19:51 Urine Ketones Negative (Negative) 06/05/23 19:51 Urine Blood Neg (Negative) 06/05/23 19:51 Urine Nitrate Negative (Negative) 06/05/23 19:51 Urine Bilirubin Neg (Negative) 06/05/23 19:51 Urine Urobilinogen Norm mg/dL (Negative) 06/05/23 19:51 Ur Leukocyte Esterase Negative (Negative) 06/05/23 19:51 Discharge Plan Discharge Patient Disposition: Home Clinical Impression: Headache Condition: Stable Prescriptions: No Action Mirena 20 mcg/24 hours (8 yrs) 52 mg intrauterine device 1 device intrauterine ONCE Qty: 1 0RF Cetacaine 2 %-2 %-14 % (200 mg/sec) aerosol,spray 200 mg topical ONCE Qty: 1 0RF povidone-iodine [Betadine Swabsticks] 10 % swab 1 applic topical ONCE Qty: 1 0RF atomoxetine [Strattera] 40 mg capsule 40 mg PO DAILY Qty: 30 0RF bupropion HCl [Wellbutrin XL] 300 mg tablet extended release 24 hr 300 mg PO QAM Qty: 30 2RF sertraline [Zoloft] 100 mg tablet 200 mg PO DAILY Qty: 60 2RF Tylenol 1,000 mg PO PRN PRN (Reason: Mild Pain (Scale Score 1-4)) doxycycline monohydrate 100 mg capsule 100 mg PO BID 10 Days Qty: 20 0RF Discharge Orders: Discharge ED (Routine); Ordered 06/05/23 Ordered By: Shae Sun Referrals: Xiang Lou MD [Primary Care Provider] - Discharge Diet: Advance as tolerated Discharge Activity: Resume usual activity Patient Instructions: General Headache (ED) Coding Level of Care Code ED Accounting Machine Servicer for Bronwyn Garcia
[2023-06-05 20:33] LABS: Erythrocyte Sedimentation Rate 6 mm/hr (0-15)
[2023-06-05 20:35] LABS: Alanine Aminotransferase 6 U/L (0-33); Albumin Level 4.3 g/dL (3.5-5.2); Alkaline Phosphatase 71 U/L (35-105); Anion Gap 13.2 (5-19); Aspartate Amino Transferase 17 U/L (0-32); Blood Urea Nitrogen 5 mg/dL (6-20); Calcium 8.8 mg/dL (8.5-10.5); Carbon Dioxide 26 mmol/L (22-29); Chloride 104 mmol/L (98-107); Creatinine Clr Calc Pharmacy 87.4012; Globulin 2.6 g/dL (1.3-4.6); Glomerular Filtration Rate 81.6 mL/min (90-130); Glucose 95 mg/dL (65-115); Osmolality Calculated 285 mOsm/kg (285-295); Potassium 4.2 mmol/L (3.5-5.1); Sodium 139 mmol/L (136-145); Total Bilirubin 0.2 mg/dL (0.15-1.2); Total Protein 6.9 g/dL (6.6-8.7)
[2023-06-05] MEDS: ketorolac 30 mg/mL INJ IVP (20:57)
[2023-06-05] MEDS: sodium chloride 0.9% 1,000 ML 999 ML IV (20:57)
[2023-06-05] MEDS: ondansetron 2 mg/ML SDV 2 mL 4 MG IVP ×2 (20:58→21:55)
--- NOTE | 2023-06-05 20:58 | CTR_ITS ---
PROCEDURE INFORMATION: Exam: CTA Head With Contrast, Arteriography Exam date and time: 06/05/2023 9:08 PM Age: 33 years old Clinical indication: Pain; Headache; Patient HX: Left sided WILLAMS with n/v. History of left vertebral artery dissection. TECHNIQUE: Imaging protocol: Computed tomographic angiography of the head with contrast. Exam focused on the arteries. 3D rendering (Not supervised by radiologist): MIP and/or 3D reconstructed images were created by the technologist. Radiation optimization: All CT scans at this facility use at least one of these dose optimization techniques: automated exposure control; mA and/or kV adjustment per patient size (includes targeted exams where dose is matched to clinical indication); or iterative reconstruction. Contrast material: OMNI 350; Contrast volume: 100 ml; Contrast route: INTRAVENOUS (IV); REPORTING DATA: Count of CT and Cardiac NM exams in prior 12 months: This patient has received 0 known CTs and 0 known cardiac nuclear medicine studies in the 12 months prior to the current study. COMPARISON: CT angio headneck* [id number] 10/28/2021 7:44 PM RADIATION DOSE METRICS: Total DLP (mGy-cm): 375.6 FINDINGS: ANTERIOR CIRCULATION: Right internal carotid artery: Intracranial segment is patent with no significant stenosis. No aneurysm. Right middle cerebral artery: No occlusion or significant stenosis. No aneurysm. Right anterior cerebral artery: No occlusion or significant stenosis. No aneurysm. Left internal carotid artery: Intracranial segment is patent with no significant stenosis. No aneurysm. Left middle cerebral artery: No occlusion or significant stenosis. No aneurysm. Left anterior cerebral artery: No occlusion or significant stenosis. No aneurysm. POSTERIOR CIRCULATION: Right vertebral artery: No occlusion or significant stenosis. No aneurysm. Left vertebral artery: No occlusion or significant stenosis. No aneurysm. Basilar artery: No occlusion or significant stenosis. No aneurysm. Right posterior cerebral artery: No occlusion or significant stenosis. No aneurysm. Left posterior cerebral artery: No occlusion or significant stenosis. No aneurysm. Brain: No definite mass, mass effect, or midline shift. Cerebral ventricles: No ventriculomegaly. Bones/joints: Unremarkable. No acute fracture. Soft tissues: Unremarkable. PROCEDURE INFORMATION: Exam: CTA Neck With Contrast Exam date and time: 06/05/2023 9:08 PM Age: 33 years old Clinical indication: Pain; Headache; Patient HX: Left sided WILLAMS with n/v. History of left vertebral artery dissection. TECHNIQUE: Imaging protocol: Computed tomographic angiography of the neck with contrast. 3D rendering (Not supervised by radiologist): MIP and/or 3D reconstructed images were created by the technologist. Radiation optimization: All CT scans at this facility use at least one of these dose optimization techniques: automated exposure control; mA and/or kV adjustment per patient size (includes targeted exams where dose is matched to clinical indication); or iterative reconstruction. Contrast material: OMNI 350; Contrast volume: 100 ml; Contrast route: INTRAVENOUS (IV); REPORTING DATA: Count of CT and Cardiac NM exams in prior 12 months: This patient has received 0 known CTs and 0 known cardiac nuclear medicine studies in the 12 months prior to the current study. COMPARISON: CT angio headneck* [id number] 10/28/2021 7:44 PM RADIATION DOSE METRICS: Total DLP (mGy-cm): 375.6 FINDINGS: Right common carotid artery: No stenosis. No dissection or occlusion. Right internal carotid artery: No stenosis of the extracranial segment. No dissection or occlusion. Right external carotid artery: No occlusion or stenosis of the origin. Left common carotid artery: No stenosis. No dissection or occlusion. Left internal carotid artery: No stenosis of the extracranial segment. No dissection or occlusion. Left external carotid artery: No occlusion or stenosis of the origin. Right vertebral artery: No stenosis. No dissection or occlusion. Left vertebral artery: No stenosis. No dissection or occlusion. Soft tissues: Normal. No significant soft tissue swelling. Bones/joints: No acute fracture. CT[facility] [id number] IMPRESSION: No large vessel stenosis or occlusion. IMPRESSION: No stenosis or occlusion. REFERENCES: NASCET CRITERIA. The degree of stenosis in the cervical segment of the internal carotid artery is based on NASCET criteria. Normal is no stenosis. Mild is less than 50% stenosis. Moderate is 50-69% stenosis. Severe is 70% to 99% stenosis. Total occlusion is no detectable patent lumen.
[2023-06-05 21:00] VITALS: BP 122/81; O2SAT 98
[2023-06-05] MEDS: iohexol 350 mg/mL 500 mL Btl (per mL) IV (21:33)
[2023-06-05 21:54] VITALS: RESP 18; O2SAT 97
[2023-06-05] MEDS: morphine 4 mg/mL SDV 1 mL IVP (21:54)
[2023-06-05 22:18] VITALS: BP 112/64; PULSE 88; RESP 18; O2SAT 98
[2023-06-05 22:51] LABS: Adenovirus Not Detected (NOT DETECT); Chlamydia Pneumoniae Not Detected (NOT DETECT); Coronavirus 229E,HKU1,NL63,OC4 Not Detected (NOT DETECT); Human Metapneumovirus Not Detected (NOT DETECT); Human Rhinovirus/Enterovirus Not Detected (NOT DETECT); Influenza A Not Detected (NOT DETECT); Influenza A H1 Not Detected (NOT DETECT); Influenza A H1-2009 Not Detected (NOT DETECT); Influenza A H3 Not Detected (NOT DETECT); Influenza B Not Detected (NOT DETECT); Mycoplasma Pneumoniae Not Detected (NOT DETECT); Parainfluenza Virus Type 1 Not Detected (NOT DETECT); Parainfluenza Virus Type 2 Not Detected (NOT DETECT); Parainfluenza Virus Type 3 Not Detected (NOT DETECT); Parainfluenza Virus Type 4 Not Detected (NOT DETECT); Respiratory Syncytial Virus A Not Detected (NOT DETECT); Respiratory Syncytial Virus B Not Detected (NOT DETECT); SARS-COV-2 Not Detected (NOT DETECT)
== END 2023-06-05 22:29 | disposition home or self-care (01) ==
PROVIDERS: Emergency Provider Emergency Medicine; PCP Family Medicine
DX: R51.9 Headache, unspecified (principal); Z85.41 Personal history of malignant neoplasm of cervix uteri; Z20.822 Contact with and (suspected) exposure to COVID-19
CPT/HCPCS: 36415; 70450; 70496; 70498; 80053; 81003; 85025; 85651; 86140; 87635; 96361; 96374; 96375; 96376; 99285; J1885; J2270; J2405; J7030; Q9967

== ENCOUNTER 2023-06-12 13:40 | Outpatient (CLI) | payer OTHER, SELFPAY ==
[2023-06-12 14:32] LABS: Erythrocyte Sedimentation Rate < 1 mm/hr (0-15)
[2023-06-15 14:16] LABS: Anti-Nuclear Antibody Screen NEGATIVE (NEGATIVE); SS A Ro Sjogrens Antibody <1.0 NEG AI (<1.0 NEG); SS-B/LA IGG <1.0 NEG AI (<1.0 NEG)
== END 2023-06-12 13:41 | disposition home or self-care (01) ==
PROVIDERS: Visit Provider Emergency Medicine
DX: R21 Rash and other nonspecific skin eruption (principal)
CPT/HCPCS: 36415; 84156; 85651; 86038; 86140; 86235; J1100; J1885; J2550

== ENCOUNTER 2023-07-10 09:52 | Outpatient (CLI) | payer SELFPAY ==
[2023-07-14 13:53] LABS: Quantiferon Mitogen >10.00 IU/mL; Quantiferon Nil 0.03 IU/mL; Quantiferon Plus TB1 0.01 IU/mL; Quantiferon Plus TB2 0.01 IU/mL; Quantiferon TB Gold NEGATIVE (NEGATIVE)
== END 2023-07-10 09:53 | disposition home or self-care (01) ==
PROVIDERS: PCP Emergency Medicine; Visit Provider Family Medicine
DX: Z11.1 Encounter for screening for respiratory tuberculosis (principal)
CPT/HCPCS: 36415; 86480

== ENCOUNTER → 2023-10-29 11:18 | Outpatient (BNVA) | payer OTHER, SELFPAY | PROVIDERS: PCP Family Medicine; Visit Provider Family Medicine | DX: R68.89 Other general symptoms and signs (principal); F32.1 Major depressive disorder, single episode, moderate; F98.8 Other specified behavioral and emotional disorders with onset usually occurring in childhood and adolescence | CPT/HCPCS: 87400 ==